=== PATIENT | male | born 1945 | race Caucasian/White ===

== ENCOUNTER 2017-06-20 12:58 | Inpatient (IN) ==
[2017-06-20] MEDS ORDERED: ALBUTEROL/IPRATROPIUM 3 ML NEB RESP TX STA (14:51)
[2017-06-20] MEDS ORDERED: methylPREDNISolone SOD SUC 125 MG/2 ML VIAL IV STA (14:54)
[2017-06-20] MEDS ORDERED: methylPREDNISolone SOD SUC 125 MG/2 ML VIAL ONE (15:37)
[2017-06-20 15:58] LABS: Basophils % 0.3 % (0.0-0.8); Hematocrit 42.5 VOL% (42.0-52.0); Hemoglobin 14.4 GM/DL (14.0-18.0); Immature Granulocytes % 1.5 %; Immature Granulocytes Absolute 0.15 #; Lymphocytes # 0.8 10*3/uL (1.4-4.0); Lymphocytes % 7.3 % (21.2-54.2); Mean Corpuscular HGB Conc 33.9 GM/DL (32-36); Mean Corpuscular Hemoglobin 31 PG (27-34); Mean Corpuscular Volume 92.6 FL (87-102); Mean Platelet Volume 10.6 FL (9.6-12.0); Monocytes # 0.8 10*3/uL (0.11-0.8); Monocytes % 7.5 % (1.7-12.7); Neutrophils # 8.6 10*3/uL (1.4-7.4); Neutrophils % 83.4 % (38.7-73.9); Platelet Count 248 T/CUMM (130-400); Red Blood Count 4.59 MC/CUMM (3.8-5.5); Red Cell Distribution Width 13.2 % (9.3-17.3); White Blood Count 10.3 T/CUMM (4-12)
[2017-06-20 16:33] LABS: Calcium 9.1 MG/DL (8.5-10.1); Osmolality,Calculated 269.4 MOS/KG (273-304)
[2017-06-20] MEDS ORDERED: cefTRIAXone 1,000 MG in SODIUM CHLORIDE 0.9% 100 ML IV STA (16:53)
[2017-06-20] MEDS ORDERED: ONDANSETRON 4 MG/2 ML VIAL IV PRN (17:41)
[2017-06-20] MEDS ORDERED: DOCUSATE SODIUM 100 MG CAPSULE PO PRN (17:41)
[2017-06-20] MEDS ORDERED: ACETAMINOPHEN 325 MG TABLET PO PRN (17:41)
[2017-06-20] MEDS ORDERED: GLUCAGON 1 MG VIAL IM PRN (17:44)
[2017-06-20] MEDS ORDERED: DEXTROSE 50% 25 GM/50 ML VIAL IV PRN (17:44)
[2017-06-20] MEDS ORDERED: cefTRIAXone 1,000 MG VIAL ONE (18:04)
[2017-06-20] MEDS: ALBUTEROL/IPRATROPIUM 3 ML NEB RESP TX SCH ×2 (19:50→23:17)
[2017-06-20] MEDS ORDERED: NITROGLYCERIN SL 0.4 MG TABLET SL PRN (20:35)
[2017-06-20] MEDS: DABIGATRAN 150 MG CAPSULE PO SCH (21:03)
[2017-06-20] MEDS: OMEGA 3 ACID ETHYL ESTERS 1 GM CAPSULE PO SCH (21:03)
[2017-06-20] MEDS: METOPROLOL TARTRATE 50 MG TABLET PO SCH (21:03)
[2017-06-20] MEDS: URSODIOL 300 MG CAPSULE PO SCH (21:04)
[2017-06-20] MEDS: ROSUVASTATIN 10 MG TABLET PO SCH (21:04)
[2017-06-20] MEDS: DOCUSATE SODIUM 100 MG CAPSULE PO SCH (21:04)
[2017-06-20] MEDS: RANOLAZINE 500 MG TABLET PO SCH (21:04)
[2017-06-20] MEDS: VALSARTAN 160 MG TABLET PO SCH (21:04)
[2017-06-20] MEDS: BENZONATATE 100 MG CAPSULE PO PRN (21:05)
[2017-06-20] MEDS: GABAPENTIN 100 MG CAPSULE PO SCH (21:05)
[2017-06-20] MEDS: FERROUS SULFATE 325 MG TABLET PO SCH (21:10)
[2017-06-20] MEDS: INSULIN REGULAR 100 UNIT/ML SUBCUT SCH (21:10)
[2017-06-20 21:36] LABS: CKMB % 4.2 %; Troponin I Only < 0.015 NG/ML (0.00-0.045)
[2017-06-21] MEDS ORDERED: NON-FORMULARY MEDICATION (Albuterol Inhaler 2 PUFF) INH SCH
[2017-06-21] MEDS: ALBUTEROL/IPRATROPIUM 3 ML NEB RESP TX SCH ×5 (03:08→20:02)
[2017-06-21 07:05] LABS: Basophils % 0.2 % (0.0-0.8); Hematocrit 38.7 VOL% (42.0-52.0); Hemoglobin 13.6 GM/DL (14.0-18.0); Immature Granulocytes % 2.6 %; Immature Granulocytes Absolute 0.13 #; Lymphocytes # 0.4 10*3/uL (1.4-4.0); Lymphocytes % 8.8 % (21.2-54.2); Mean Corpuscular HGB Conc 35.1 GM/DL (32-36); Mean Corpuscular Hemoglobin 31 PG (27-34); Mean Corpuscular Volume 89.4 FL (87-102); Mean Platelet Volume 10.7 FL (9.6-12.0); Monocytes # 0.1 10*3/uL (0.11-0.8); Monocytes % 2.6 % (1.7-12.7); Neutrophils # 4.2 10*3/uL (1.4-7.4); Neutrophils % 85.8 % (38.7-73.9); Platelet Count 231 T/CUMM (130-400); Red Blood Count 4.33 MC/CUMM (3.8-5.5); Red Cell Distribution Width 13.1 % (9.3-17.3); White Blood Count 4.9 T/CUMM (4-12)
[2017-06-21 07:37] LABS: Calcium 8.5 MG/DL (8.5-10.1); Potassium 4.2 MMOL/L (3.5-5.1)
[2017-06-21 07:58] LABS: CKMB % 4.1 %; Troponin I Only < 0.015 NG/ML (0.00-0.045)
[2017-06-21] MEDS: INSULIN REGULAR 100 UNIT/ML SUBCUT SCH ×4 (09:15→21:12)
[2017-06-21] MEDS: CETIRIZINE 10 MG TABLET PO SCH (09:16)
[2017-06-21] MEDS: RANOLAZINE 500 MG TABLET PO SCH ×2 (09:16→22:17)
[2017-06-21] MEDS: MULTIVITAMIN (CENTRUM) TABLET PO SCH (09:16)
[2017-06-21] MEDS: PANTOPRAZOLE 40 MG TABLET PO SCH (09:16)
[2017-06-21] MEDS: methylPREDNISolone SOD SUC 40 MG/1 ML VIAL IV SCH ×2 (09:16→22:17)
[2017-06-21] MEDS: URSODIOL 300 MG CAPSULE PO SCH ×2 (09:16→21:13)
[2017-06-21] MEDS: DABIGATRAN 150 MG CAPSULE PO SCH ×2 (09:16→21:13)
[2017-06-21] MEDS: VALSARTAN 160 MG TABLET PO SCH ×2 (09:16→21:13)
[2017-06-21] MEDS: ASPIRIN EC 81 MG TABLET PO SCH (09:17)
[2017-06-21] MEDS: OMEGA 3 ACID ETHYL ESTERS 1 GM CAPSULE PO SCH ×2 (09:17→21:13)
[2017-06-21] MEDS: DOCUSATE SODIUM 100 MG CAPSULE PO SCH ×2 (09:17→21:14)
[2017-06-21] MEDS: FUROSEMIDE 80 MG TABLET PO SCH (09:17)
[2017-06-21] MEDS: amLODIPine 5 MG TABLET PO SCH (09:17)
[2017-06-21] MEDS: ISOSORBIDE MONONITRATE 60 MG TABLET PO SCH (09:17)
[2017-06-21] MEDS: METOPROLOL TARTRATE 50 MG TABLET PO SCH ×2 (09:17→21:13)
[2017-06-21] MEDS: FERROUS SULFATE 325 MG TABLET PO SCH ×2 (10:02→21:13)
[2017-06-21] MEDS: MAGNESIUM HYDROXIDE SUSP 30 ML UDCUP PO PRN (14:47)
[2017-06-21 15:34] LABS: Apearance,Urine CLEAR (Clear); Bilirubin,Urine Negative (Negative); Blood, Urine Negative (Negative); Glucose,Urine (UA) >=500 mg/dL (Negative); Ketones,Urine 5 mg/dL (Negative); Nitrite,Urine Negative (Negative); Protein,Urine >=500 MG/DL; RBC,Urine 3 /HPF (0-4); Urine Color Yellow (Yellow); Urine Specific Gravity 1.013 (1.001-1.035); Urine Urobilinogen < 2.0 EU/DL (0.2-1.0); WBC,Urine 1 /HPF (0-6)
[2017-06-21] MEDS: INSULIN GLARGINE 100 UNIT/ML SUBCUT SCH (21:12)
[2017-06-21] MEDS: LEVOFLOXACIN INJ 750 MG in PREMIX 1 EACH IV SCH (21:12)
[2017-06-21] MEDS: ROSUVASTATIN 10 MG TABLET PO SCH (21:14)
[2017-06-21] MEDS: GABAPENTIN 100 MG CAPSULE PO SCH (21:14)
[2017-06-22] MEDS: ALBUTEROL/IPRATROPIUM 3 ML NEB RESP TX SCH ×7 (00:15→23:06)
[2017-06-22] MEDS: INSULIN REGULAR 100 UNIT/ML SUBCUT SCH ×4 (08:57→21:07)
[2017-06-22] MEDS: MAGNESIUM HYDROXIDE SUSP 30 ML UDCUP PO PRN (08:57)
[2017-06-22] MEDS: methylPREDNISolone SOD SUC 40 MG/1 ML VIAL IV SCH ×2 (08:57→21:08)
[2017-06-22] MEDS: OMEGA 3 ACID ETHYL ESTERS 1 GM CAPSULE PO SCH ×2 (08:58→21:09)
[2017-06-22] MEDS: METOPROLOL TARTRATE 50 MG TABLET PO SCH ×2 (08:58→21:09)
[2017-06-22] MEDS: RANOLAZINE 500 MG TABLET PO SCH ×2 (08:58→21:09)
[2017-06-22] MEDS: ISOSORBIDE MONONITRATE 60 MG TABLET PO SCH (08:58)
[2017-06-22] MEDS: MULTIVITAMIN (CENTRUM) TABLET PO SCH (08:59)
[2017-06-22] MEDS: VALSARTAN 160 MG TABLET PO SCH ×2 (08:59→21:18)
[2017-06-22] MEDS: amLODIPine 5 MG TABLET PO SCH (08:59)
[2017-06-22] MEDS: ASPIRIN EC 81 MG TABLET PO SCH (08:59)
[2017-06-22] MEDS: CETIRIZINE 10 MG TABLET PO SCH (08:59)
[2017-06-22] MEDS: FUROSEMIDE 80 MG TABLET PO SCH (08:59)
[2017-06-22] MEDS: PANTOPRAZOLE 40 MG TABLET PO SCH (08:59)
[2017-06-22] MEDS: DOCUSATE SODIUM 100 MG CAPSULE PO SCH ×2 (08:59→21:09)
[2017-06-22] MEDS: FERROUS SULFATE 325 MG TABLET PO SCH ×2 (08:59→21:09)
[2017-06-22] MEDS: DABIGATRAN 150 MG CAPSULE PO SCH ×2 (08:59→21:08)
[2017-06-22] MEDS: URSODIOL 300 MG CAPSULE PO SCH ×2 (09:00→21:09)
[2017-06-22] MEDS: LEVOFLOXACIN INJ 750 MG in PREMIX 1 EACH IV SCH (21:06)
[2017-06-22] MEDS: INSULIN GLARGINE 100 UNIT/ML SUBCUT SCH (21:07)
[2017-06-22] MEDS: ROSUVASTATIN 10 MG TABLET PO SCH (21:09)
[2017-06-22] MEDS: GABAPENTIN 100 MG CAPSULE PO SCH (21:10)
[2017-06-23] MEDS: ALBUTEROL/IPRATROPIUM 3 ML NEB RESP TX SCH ×5 (03:12→20:49)
[2017-06-23 06:55] LABS: Basophils % 0.3 % (0.0-0.8); Hematocrit 35.9 VOL% (42.0-52.0); Hemoglobin 12.7 GM/DL (14.0-18.0); Immature Granulocytes % 3.2 %; Immature Granulocytes Absolute 0.46 #; Lymphocytes # 0.4 10*3/uL (1.4-4.0); Lymphocytes % 2.6 % (21.2-54.2); Mean Corpuscular HGB Conc 35.4 GM/DL (32-36); Mean Corpuscular Hemoglobin 32 PG (27-34); Mean Corpuscular Volume 89.5 FL (87-102); Mean Platelet Volume 10.5 FL (9.6-12.0); Monocytes # 0.7 10*3/uL (0.11-0.8); Monocytes % 4.7 % (1.7-12.7); Neutrophils % 89.2 % (38.7-73.9); Platelet Count 276 T/CUMM (130-400); Red Blood Count 4.01 MC/CUMM (3.8-5.5); White Blood Count 14.6 T/CUMM (4-12)
[2017-06-23 07:16] LABS: Giant Platelets Few; Hypochromasia 1+; Lymphocytes 4 % (20-55); Microcytosis Slight; Ovalocytes Slight; Platelet Estimate Adequate; Segmented Neutrophils 92 % (50-85); Total Cells Counted 100
[2017-06-23] MEDS: MAGNESIUM HYDROXIDE SUSP 30 ML UDCUP PO PRN (08:49)
[2017-06-23] MEDS: ASPIRIN EC 81 MG TABLET PO SCH (08:50)
[2017-06-23] MEDS: FUROSEMIDE 80 MG TABLET PO SCH (08:50)
[2017-06-23] MEDS: RANOLAZINE 500 MG TABLET PO SCH ×2 (08:50→21:17)
[2017-06-23] MEDS: INSULIN REGULAR 100 UNIT/ML SUBCUT SCH ×4 (08:50→21:23)
[2017-06-23] MEDS: MULTIVITAMIN (CENTRUM) TABLET PO SCH (08:50)
[2017-06-23] MEDS: methylPREDNISolone SOD SUC 40 MG/1 ML VIAL IV SCH (08:50)
[2017-06-23] MEDS: CETIRIZINE 10 MG TABLET PO SCH (08:50)
[2017-06-23] MEDS: FERROUS SULFATE 325 MG TABLET PO SCH ×2 (08:51→21:18)
[2017-06-23] MEDS: VALSARTAN 160 MG TABLET PO SCH ×2 (08:51→21:17)
[2017-06-23] MEDS: amLODIPine 5 MG TABLET PO SCH (08:51)
[2017-06-23] MEDS: URSODIOL 300 MG CAPSULE PO SCH ×2 (08:51→21:17)
[2017-06-23] MEDS: DOCUSATE SODIUM 100 MG CAPSULE PO SCH ×2 (08:51→21:17)
[2017-06-23] MEDS: METOPROLOL TARTRATE 50 MG TABLET PO SCH ×2 (08:51→21:18)
[2017-06-23] MEDS: ISOSORBIDE MONONITRATE 60 MG TABLET PO SCH (08:51)
[2017-06-23] MEDS: DABIGATRAN 150 MG CAPSULE PO SCH ×2 (08:52→21:18)
[2017-06-23] MEDS: OMEGA 3 ACID ETHYL ESTERS 1 GM CAPSULE PO SCH ×2 (08:52→21:30)
[2017-06-23] MEDS: PANTOPRAZOLE 40 MG TABLET PO SCH (08:52)
[2017-06-23] MEDS ORDERED: FUROSEMIDE 40 MG/4 ML VIAL IV ONE (12:11)
[2017-06-23] MEDS ORDERED: INSULIN GLARGINE 100 UNIT/ML SUBCUT SCH (14:33)
[2017-06-23] MEDS: CEFEPIME 1,000 MG in SYRINGE 1 EACH IV SCH (14:38)
[2017-06-23] MEDS: INSULIN GLARGINE 100 UNIT/ML SUBCUT SCH ×2 (14:48→21:22)
[2017-06-23] MEDS ORDERED: BISACODYL 5 MG TABLET PO ONE (15:16)
[2017-06-23] MEDS: LEVOFLOXACIN INJ 750 MG in PREMIX 1 EACH IV SCH (21:16)
[2017-06-23] MEDS: GABAPENTIN 100 MG CAPSULE PO SCH (21:17)
[2017-06-23] MEDS: ROSUVASTATIN 10 MG TABLET PO SCH (21:18)
[2017-06-24] MEDS: ALBUTEROL/IPRATROPIUM 3 ML NEB RESP TX SCH ×6 (00:18→19:16)
[2017-06-24] MEDS: CEFEPIME 1,000 MG in SYRINGE 1 EACH IV SCH ×2 (01:27→13:35)
[2017-06-24] MEDS ORDERED: INSULIN GLARGINE 100 UNIT/ML SUBCUT SCH ×2 (07:28→08:08)
[2017-06-24] MEDS: INSULIN REGULAR 100 UNIT/ML SUBCUT SCH ×4 (08:52→20:48)
[2017-06-24] MEDS: URSODIOL 300 MG CAPSULE PO SCH ×2 (08:53→23:10)
[2017-06-24] MEDS: BISACODYL 5 MG TABLET PO PRN (08:53)
[2017-06-24] MEDS: methylPREDNISolone SOD SUC 40 MG/1 ML VIAL IV SCH (08:53)
[2017-06-24] MEDS: RANOLAZINE 500 MG TABLET PO SCH ×2 (08:53→20:50)
[2017-06-24] MEDS: DABIGATRAN 150 MG CAPSULE PO SCH ×2 (08:53→20:50)
[2017-06-24] MEDS: PANTOPRAZOLE 40 MG TABLET PO SCH (08:53)
[2017-06-24] MEDS: FUROSEMIDE 80 MG TABLET PO SCH (08:53)
[2017-06-24] MEDS: FERROUS SULFATE 325 MG TABLET PO SCH ×2 (08:54→20:50)
[2017-06-24] MEDS: amLODIPine 5 MG TABLET PO SCH (08:54)
[2017-06-24] MEDS: VALSARTAN 160 MG TABLET PO SCH ×2 (08:59→23:10)
[2017-06-24] MEDS: METOPROLOL TARTRATE 50 MG TABLET PO SCH ×2 (09:00→20:51)
[2017-06-24] MEDS: OMEGA 3 ACID ETHYL ESTERS 1 GM CAPSULE PO SCH ×2 (09:00→20:51)
[2017-06-24] MEDS: DOCUSATE SODIUM 100 MG CAPSULE PO SCH ×2 (09:00→20:50)
[2017-06-24] MEDS: CETIRIZINE 10 MG TABLET PO SCH (09:00)
[2017-06-24] MEDS: ASPIRIN EC 81 MG TABLET PO SCH (09:00)
[2017-06-24] MEDS: ISOSORBIDE MONONITRATE 60 MG TABLET PO SCH (09:00)
[2017-06-24] MEDS: MULTIVITAMIN (CENTRUM) TABLET PO SCH (09:00)
[2017-06-24] MEDS: MAGNESIUM HYDROXIDE SUSP 30 ML UDCUP PO PRN (09:08)
[2017-06-24] MEDS ORDERED: SODIUM PHOSPHATE ENEMA 133 ML BOTTLE RECTAL PRN (18:42)
[2017-06-24] MEDS: GABAPENTIN 100 MG CAPSULE PO SCH (20:50)
[2017-06-24] MEDS: MONTELUKAST 10 MG TABLET PO SCH (20:50)
[2017-06-24] MEDS: ROSUVASTATIN 10 MG TABLET PO SCH (20:51)
[2017-06-24] MEDS: LEVOFLOXACIN INJ 750 MG in PREMIX 1 EACH IV SCH (20:55)
[2017-06-24] MEDS: LACTULOSE 20 GM/30 ML UDCUP PO SCH (21:01)
[2017-06-25] MEDS: ALBUTEROL/IPRATROPIUM 3 ML NEB RESP TX SCH ×7 (00:07→23:45)
[2017-06-25] MEDS: CEFEPIME 1,000 MG in SYRINGE 1 EACH IV SCH ×2 (01:02→16:23)
[2017-06-25 07:13] LABS: Basophils % 0.2 % (0.0-0.8); Hematocrit 35.7 VOL% (42.0-52.0); Hemoglobin 12.4 GM/DL (14.0-18.0); Immature Granulocytes % 3.7 %; Immature Granulocytes Absolute 0.58 #; Lymphocytes # 0.8 10*3/uL (1.4-4.0); Lymphocytes % 5.3 % (21.2-54.2); Mean Corpuscular HGB Conc 34.7 GM/DL (32-36); Mean Corpuscular Hemoglobin 32 PG (27-34); Mean Corpuscular Volume 90.6 FL (87-102); Mean Platelet Volume 10.6 FL (9.6-12.0); Monocytes # 1.1 10*3/uL (0.11-0.8); Monocytes % 6.8 % (1.7-12.7); Neutrophils # 13.3 10*3/uL (1.4-7.4); Platelet Count 247 T/CUMM (130-400); Red Blood Count 3.94 MC/CUMM (3.8-5.5); Red Cell Distribution Width 12.7 % (9.3-17.3); White Blood Count 15.8 T/CUMM (4-12)
[2017-06-25 07:32] LABS: Calcium 8.8 MG/DL (8.5-10.1); Potassium 4.2 MMOL/L (3.5-5.1)
[2017-06-25] MEDS: INSULIN REGULAR 100 UNIT/ML SUBCUT SCH ×4 (07:55→22:48)
[2017-06-25 08:12] LABS: Hypochromasia 1+; Lymphocytes 5 % (20-55); Microcytosis Slight; Platelet Estimate Normal; Segmented Neutrophils 88 % (50-85); Total Cells Counted 100
[2017-06-25] MEDS: methylPREDNISolone SOD SUC 40 MG/1 ML VIAL IV SCH (08:54)
[2017-06-25] MEDS: FUROSEMIDE 80 MG TABLET PO SCH (09:18)
[2017-06-25] MEDS: VALSARTAN 160 MG TABLET PO SCH ×2 (09:18→21:15)
[2017-06-25] MEDS: ISOSORBIDE MONONITRATE 60 MG TABLET PO SCH (09:18)
[2017-06-25] MEDS: METOPROLOL TARTRATE 50 MG TABLET PO SCH ×2 (09:18→21:14)
[2017-06-25] MEDS: OMEGA 3 ACID ETHYL ESTERS 1 GM CAPSULE PO SCH ×2 (09:18→21:13)
[2017-06-25] MEDS: FERROUS SULFATE 325 MG TABLET PO SCH ×2 (09:18→21:13)
[2017-06-25] MEDS: MONTELUKAST 10 MG TABLET PO SCH (09:18)
[2017-06-25] MEDS: ASPIRIN EC 81 MG TABLET PO SCH (09:18)
[2017-06-25] MEDS: LACTULOSE 20 GM/30 ML UDCUP PO SCH ×3 (09:18→21:13)
[2017-06-25] MEDS: DABIGATRAN 150 MG CAPSULE PO SCH ×2 (09:18→21:14)
[2017-06-25] MEDS: PANTOPRAZOLE 40 MG TABLET PO SCH (09:19)
[2017-06-25] MEDS: DOCUSATE SODIUM 100 MG CAPSULE PO SCH ×2 (09:19→21:14)
[2017-06-25] MEDS: POLYETHYLENE GLYCOL POWDER 17 GM PACK PO SCH (09:19)
[2017-06-25] MEDS: amLODIPine 5 MG TABLET PO SCH (09:19)
[2017-06-25] MEDS: BISACODYL 5 MG TABLET PO PRN (09:19)
[2017-06-25] MEDS: CETIRIZINE 10 MG TABLET PO SCH (09:19)
[2017-06-25] MEDS: MULTIVITAMIN (CENTRUM) TABLET PO SCH (09:19)
[2017-06-25] MEDS: RANOLAZINE 500 MG TABLET PO SCH ×2 (09:24→21:14)
[2017-06-25] MEDS: URSODIOL 300 MG CAPSULE PO SCH ×2 (09:24→21:14)
[2017-06-25] MEDS: LEVOFLOXACIN INJ 750 MG in PREMIX 1 EACH IV SCH (21:13)
[2017-06-25] MEDS: GABAPENTIN 100 MG CAPSULE PO SCH (21:14)
[2017-06-25] MEDS: ROSUVASTATIN 10 MG TABLET PO SCH (21:17)
[2017-06-25] MEDS: INSULIN GLARGINE 100 UNIT/ML SUBCUT SCH (22:48)
[2017-06-26] MEDS: ALBUTEROL/IPRATROPIUM 3 ML NEB RESP TX SCH ×5 (03:03→20:53)
[2017-06-26 04:31] LABS: Basophils % 0.3 % (0.0-0.8); Hematocrit 35.3 VOL% (42.0-52.0); Hemoglobin 12.4 GM/DL (14.0-18.0); Immature Granulocytes % 3.6 %; Immature Granulocytes Absolute 0.54 #; Lymphocytes # 0.7 10*3/uL (1.4-4.0); Lymphocytes % 4.9 % (21.2-54.2); Mean Corpuscular HGB Conc 35.1 GM/DL (32-36); Mean Corpuscular Hemoglobin 31 PG (27-34); Mean Corpuscular Volume 89.1 FL (87-102); Mean Platelet Volume 10.8 FL (9.6-12.0); Monocytes # 1.1 10*3/uL (0.11-0.8); Monocytes % 7.1 % (1.7-12.7); Neutrophils # 12.7 10*3/uL (1.4-7.4); Neutrophils % 84.1 % (38.7-73.9); Platelet Count 245 T/CUMM (130-400); Red Blood Count 3.96 MC/CUMM (3.8-5.5); Red Cell Distribution Width 12.8 % (9.3-17.3); White Blood Count 15.1 T/CUMM (4-12)
[2017-06-26] MEDS: CEFEPIME 1,000 MG in SYRINGE 1 EACH IV SCH ×2 (04:39→16:39)
[2017-06-26 04:50] LABS: Calcium 8.8 MG/DL (8.5-10.1)
[2017-06-26 05:17] LABS: Band Neutrophils 2 % (0-10); Giant Platelets Few; Hypochromasia 1+; Lymphocytes 5 % (20-55); Microcytosis Slight; Ovalocytes Slight; Platelet Estimate Adequate; Segmented Neutrophils 89 % (50-85); Total Cells Counted 100
[2017-06-26] MEDS: INSULIN REGULAR 100 UNIT/ML SUBCUT SCH ×4 (09:32→23:43)
[2017-06-26] MEDS: PANTOPRAZOLE 40 MG TABLET PO SCH (09:33)
[2017-06-26] MEDS: methylPREDNISolone SOD SUC 40 MG/1 ML VIAL IV SCH (09:33)
[2017-06-26] MEDS: ASPIRIN EC 81 MG TABLET PO SCH (09:33)
[2017-06-26] MEDS: OMEGA 3 ACID ETHYL ESTERS 1 GM CAPSULE PO SCH ×2 (09:33→22:07)
[2017-06-26] MEDS: URSODIOL 300 MG CAPSULE PO SCH ×2 (09:33→22:07)
[2017-06-26] MEDS: MULTIVITAMIN (CENTRUM) TABLET PO SCH (09:33)
[2017-06-26] MEDS: DABIGATRAN 150 MG CAPSULE PO SCH ×2 (09:33→22:08)
[2017-06-26] MEDS: RANOLAZINE 500 MG TABLET PO SCH ×2 (09:33→22:06)
[2017-06-26] MEDS: MONTELUKAST 10 MG TABLET PO SCH (09:34)
[2017-06-26] MEDS: LACTULOSE 20 GM/30 ML UDCUP PO SCH ×3 (09:34→22:09)
[2017-06-26] MEDS: VALSARTAN 160 MG TABLET PO SCH ×2 (09:34→22:07)
[2017-06-26] MEDS: CETIRIZINE 10 MG TABLET PO SCH (09:34)
[2017-06-26] MEDS: ISOSORBIDE MONONITRATE 60 MG TABLET PO SCH (09:34)
[2017-06-26] MEDS: POLYETHYLENE GLYCOL POWDER 17 GM PACK PO SCH (09:34)
[2017-06-26] MEDS: DOCUSATE SODIUM 100 MG CAPSULE PO SCH ×2 (09:34→22:08)
[2017-06-26] MEDS: FERROUS SULFATE 325 MG TABLET PO SCH ×2 (09:34→22:08)
[2017-06-26] MEDS: FUROSEMIDE 80 MG TABLET PO SCH (09:34)
[2017-06-26] MEDS: METOPROLOL TARTRATE 50 MG TABLET PO SCH ×2 (09:34→22:07)
[2017-06-26] MEDS: amLODIPine 5 MG TABLET PO SCH (09:34)
[2017-06-26] MEDS: GABAPENTIN 100 MG CAPSULE PO SCH (22:08)
[2017-06-26] MEDS: INSULIN GLARGINE 100 UNIT/ML SUBCUT SCH (22:08)
[2017-06-26] MEDS: valACYclovir 500 MG TABLET PO SCH (22:09)
[2017-06-26] MEDS: LEVOFLOXACIN INJ 750 MG in PREMIX 1 EACH IV SCH (22:14)
[2017-06-26] MEDS: ROSUVASTATIN 10 MG TABLET PO SCH (23:44)
[2017-06-27] MEDS: ALBUTEROL/IPRATROPIUM 3 ML NEB RESP TX SCH ×6 (00:33→20:24)
[2017-06-27] MEDS: CEFEPIME 1,000 MG in SYRINGE 1 EACH IV SCH ×2 (04:55→16:25)
[2017-06-27 06:32] LABS: Basophils % 0.2 % (0.0-0.8); Hematocrit 36.3 VOL% (42.0-52.0); Hemoglobin 12.3 GM/DL (14.0-18.0); Immature Granulocytes % 2.8 %; Immature Granulocytes Absolute 0.54 #; Lymphocytes # 0.6 10*3/uL (1.4-4.0); Lymphocytes % 2.9 % (21.2-54.2); Mean Corpuscular HGB Conc 33.9 GM/DL (32-36); Mean Corpuscular Hemoglobin 31 PG (27-34); Mean Corpuscular Volume 91.4 FL (87-102); Mean Platelet Volume 10.6 FL (9.6-12.0); Monocytes # 1.3 10*3/uL (0.11-0.8); Monocytes % 6.6 % (1.7-12.7); Neutrophils % 87.5 % (38.7-73.9); Platelet Count 249 T/CUMM (130-400); Red Blood Count 3.97 MC/CUMM (3.8-5.5); White Blood Count 19.4 T/CUMM (4-12)
[2017-06-27 06:52] LABS: Calcium 8.9 MG/DL (8.5-10.1); Osmolality,Calculated 289.2 MOS/KG (273-304); Potassium 3.9 MMOL/L (3.5-5.1)
[2017-06-27 07:55] LABS: Giant Platelets Few; Hypochromasia 1+; Lymphocytes 3 % (20-55); Microcytosis Slight; Ovalocytes Slight; Platelet Estimate Adequate; Segmented Neutrophils 90 % (50-85); Total Cells Counted 100
[2017-06-27] MEDS: OMEGA 3 ACID ETHYL ESTERS 1 GM CAPSULE PO SCH ×2 (08:45→22:13)
[2017-06-27] MEDS: methylPREDNISolone SOD SUC 40 MG/1 ML VIAL IV SCH (08:45)
[2017-06-27] MEDS: amLODIPine 5 MG TABLET PO SCH (08:45)
[2017-06-27] MEDS: PANTOPRAZOLE 40 MG TABLET PO SCH (08:45)
[2017-06-27] MEDS: URSODIOL 300 MG CAPSULE PO SCH ×2 (08:45→22:08)
[2017-06-27] MEDS: METOPROLOL TARTRATE 50 MG TABLET PO SCH ×2 (08:45→22:09)
[2017-06-27] MEDS: FERROUS SULFATE 325 MG TABLET PO SCH ×2 (08:45→22:09)
[2017-06-27] MEDS: DABIGATRAN 150 MG CAPSULE PO SCH ×2 (08:45→22:09)
[2017-06-27] MEDS: DOCUSATE SODIUM 100 MG CAPSULE PO SCH ×2 (08:45→22:09)
[2017-06-27] MEDS: ISOSORBIDE MONONITRATE 60 MG TABLET PO SCH (08:45)
[2017-06-27] MEDS: MULTIVITAMIN (CENTRUM) TABLET PO SCH (08:45)
[2017-06-27] MEDS: INSULIN REGULAR 100 UNIT/ML SUBCUT SCH ×4 (08:45→22:10)
[2017-06-27] MEDS: MONTELUKAST 10 MG TABLET PO SCH (08:46)
[2017-06-27] MEDS: LACTULOSE 20 GM/30 ML UDCUP PO SCH ×3 (08:46→22:08)
[2017-06-27] MEDS: FUROSEMIDE 80 MG TABLET PO SCH (08:46)
[2017-06-27] MEDS: BISACODYL 5 MG TABLET PO PRN (08:46)
[2017-06-27] MEDS: CETIRIZINE 10 MG TABLET PO SCH (08:46)
[2017-06-27] MEDS: ASPIRIN EC 81 MG TABLET PO SCH (08:46)
[2017-06-27] MEDS: RANOLAZINE 500 MG TABLET PO SCH ×2 (08:46→22:08)
[2017-06-27] MEDS: VALSARTAN 160 MG TABLET PO SCH ×2 (08:46→22:08)
[2017-06-27] MEDS: valACYclovir 500 MG TABLET PO SCH ×2 (08:47→22:11)
[2017-06-27] MEDS: POLYETHYLENE GLYCOL POWDER 17 GM PACK PO SCH (08:47)
[2017-06-27] MEDS: GABAPENTIN 100 MG CAPSULE PO SCH (22:09)
[2017-06-27] MEDS: INSULIN GLARGINE 100 UNIT/ML SUBCUT SCH (22:10)
[2017-06-27] MEDS: ROSUVASTATIN 10 MG TABLET PO SCH (22:13)
[2017-06-27] MEDS: LEVOFLOXACIN INJ 750 MG in PREMIX 1 EACH IV SCH (22:21)
[2017-06-28] MEDS: ALBUTEROL/IPRATROPIUM 3 ML NEB RESP TX SCH ×5 (00:07→15:02)
[2017-06-28] MEDS: CEFEPIME 1,000 MG in SYRINGE 1 EACH IV SCH (04:30)
[2017-06-28] MEDS: INSULIN REGULAR 100 UNIT/ML SUBCUT SCH ×2 (09:26→13:02)
[2017-06-28] MEDS: DOCUSATE SODIUM 100 MG CAPSULE PO SCH (09:27)
[2017-06-28] MEDS: MULTIVITAMIN (CENTRUM) TABLET PO SCH (09:27)
[2017-06-28] MEDS: LACTULOSE 20 GM/30 ML UDCUP PO SCH ×2 (09:27→16:09)
[2017-06-28] MEDS: ASPIRIN EC 81 MG TABLET PO SCH (09:27)
[2017-06-28] MEDS: URSODIOL 300 MG CAPSULE PO SCH (09:27)
[2017-06-28] MEDS: FERROUS SULFATE 325 MG TABLET PO SCH (09:28)
[2017-06-28] MEDS: METOPROLOL TARTRATE 50 MG TABLET PO SCH (09:28)
[2017-06-28] MEDS: OMEGA 3 ACID ETHYL ESTERS 1 GM CAPSULE PO SCH (09:28)
[2017-06-28] MEDS: VALSARTAN 160 MG TABLET PO SCH (09:28)
[2017-06-28] MEDS: ISOSORBIDE MONONITRATE 60 MG TABLET PO SCH (09:28)
[2017-06-28] MEDS: FUROSEMIDE 80 MG TABLET PO SCH (09:28)
[2017-06-28] MEDS: methylPREDNISolone SOD SUC 40 MG/1 ML VIAL IV SCH (09:29)
[2017-06-28] MEDS: PANTOPRAZOLE 40 MG TABLET PO SCH (09:29)
[2017-06-28] MEDS: amLODIPine 5 MG TABLET PO SCH (09:29)
[2017-06-28] MEDS: MONTELUKAST 10 MG TABLET PO SCH (09:29)
[2017-06-28] MEDS: RANOLAZINE 500 MG TABLET PO SCH (09:29)
[2017-06-28] MEDS: POLYETHYLENE GLYCOL POWDER 17 GM PACK PO SCH (09:29)
[2017-06-28] MEDS: DABIGATRAN 150 MG CAPSULE PO SCH (09:29)
[2017-06-28] MEDS: BENZONATATE 100 MG CAPSULE PO PRN (09:30)
[2017-06-28] MEDS: CETIRIZINE 10 MG TABLET PO SCH (09:30)
[2017-06-28] MEDS: valACYclovir 500 MG TABLET PO SCH (09:30)
[2017-06-28 13:48] VITALS: BP 154/70
== END 2017-06-28 15:55 | disposition home or self-care (01) | DRG 193 ==
LOC: N.ED 12:58 → N.EDINP 16:45 → SUATTDRO 16:45 → N.EDINP 18:50 → N.5E 19:43
PROVIDERS: ADMIT Internal Medicine

== ENCOUNTER 2017-07-02 05:53 | Inpatient (IN) ==
[2017-07-02] MEDS ORDERED: MEROPENEM 1,000 MG in SODIUM CHLORIDE 0.9% 100 ML IV STA (06:15)
[2017-07-02] MEDS ORDERED: VANCOMYCIN INJ 1,000 MG in SODIUM CHLORIDE 0.9% 250 ML IV STA (06:16)
[2017-07-02] MEDS ORDERED: MEROPENEM 1,000 MG VIAL IV ONE (06:21)
[2017-07-02 06:36] LABS: Basophils % 0.1 % (0.0-0.8); Hemoglobin 12.4 GM/DL (14.0-18.0); Immature Granulocytes % 0.6 %; Lymphocytes # 0.2 10*3/uL (1.4-4.0); Lymphocytes % 1.2 % (21.2-54.2); Mean Corpuscular HGB Conc 35.4 GM/DL (32-36); Mean Corpuscular Hemoglobin 32 PG (27-34); Mean Corpuscular Volume 90.7 FL (87-102); Mean Platelet Volume 10.8 FL (9.6-12.0); Monocytes # 0.2 10*3/uL (0.11-0.8); Monocytes % 1.3 % (1.7-12.7); Neutrophils # 15.2 10*3/uL (1.4-7.4); Neutrophils % 96.8 % (38.7-73.9); Platelet Count 174 T/CUMM (130-400); Red Blood Count 3.86 MC/CUMM (3.8-5.5); Red Cell Distribution Width 14.2 % (9.3-17.3); White Blood Count 15.7 T/CUMM (4-12)
[2017-07-02] MEDS: ALBUTEROL 2.5 MG/3 ML NEB RESP TX SCH ×3 (06:44→07:37)
[2017-07-02 06:56] LABS: Band Neutrophils 2 % (0-10); Giant Platelets Few; Hypochromasia 1+; Lymphocytes 2 % (20-55); Microcytosis Slight; Ovalocytes Slight; Platelet Estimate Normal; Segmented Neutrophils 95 % (50-85); Total Cells Counted 100
[2017-07-02 07:10] LABS: Alanine Aminotransferase 52 U/L (16-61); Albumin 2.3 G/DL (3.4-5.0); Alkaline Phosphatase 86 U/L (45-117); Aspartate Amino Transferase 59 U/L (0-37); Blood Urea Nitrogen 54 MG/DL (7-18); Calcium 9.3 MG/DL (8.5-10.1); Glucose 58 MG/DL (74-106); Osmolality,Calculated 276.5 MOS/KG (273-304); Potassium 4.6 MMOL/L (3.5-5.1); Sodium 132 MMOL/L (136-145); Total Protein 6.7 G/DL (6.4-8.3); Troponin I Only < 0.015 NG/ML (0.00-0.045)
[2017-07-02] MEDS ORDERED: VANCOMYCIN 1,000 MG VIAL ONE (07:44)
[2017-07-02] MEDS ORDERED: ACETAMINOPHEN 325 MG TABLET PO PRN (08:43)
[2017-07-02] MEDS ORDERED: FUROSEMIDE 40 MG/4 ML VIAL IV STA (08:57)
[2017-07-02] MEDS ORDERED: LEVOFLOXACIN INJ 750 MG in PREMIX 1 EACH IV SCH ×2 (09:00→10:00)
[2017-07-02] MEDS ORDERED: DEXTROSE 50% 25 GM/50 ML VIAL IV PRN (09:01)
[2017-07-02] MEDS ORDERED: GLUCAGON 1 MG VIAL IM PRN (09:01)
[2017-07-02] MEDS: methylPREDNISolone SOD SUC 40 MG/1 ML VIAL IV SCH ×2 (09:57→21:44)
[2017-07-02] MEDS: ALBUTEROL/IPRATROPIUM 3 ML NEB RESP TX SCH ×4 (11:05→23:44)
[2017-07-02] MEDS: INSULIN REGULAR 100 UNIT/ML SUBCUT SCH ×2 (13:18→18:07)
[2017-07-02] MEDS ORDERED: BENZONATATE 100 MG CAPSULE PO PRN (13:43)
[2017-07-02 14:21] LABS: Apearance,Urine CLOUDY (Clear); Bacteria,Urine Occasional /HPF (Few); Bilirubin,Urine Negative (Negative); Blood, Urine Negative (Negative); Glucose,Urine (UA) 50 mg/dL (Negative); Hyaline Casts,Urine 1 /LPF (0-3); Ketones,Urine Negative (Negative); Mucus,Urine Occasional /LPF (Occasional); Nitrite,Urine Negative (Negative); Protein,Urine 100 MG/DL; RBC,Urine 2 /HPF (0-4); Squamous Epithelial Cell,Urine Occasional /HPF (0-10); Urine Color Amber (Yellow); Urine Specific Gravity 1.014 (1.001-1.035); Urine Urobilinogen < 2.0 EU/DL (0.2-1.0); WBC,Urine 2 /HPF (0-6)
[2017-07-03] MEDS: INSULIN REGULAR 100 UNIT/ML SUBCUT SCH ×4 (00:32→18:16)
[2017-07-03 02:47] LABS: Basophils % 0.1 % (0.0-0.8); Hematocrit 30.6 VOL% (42.0-52.0); Hemoglobin 10.2 GM/DL (14.0-18.0); Immature Granulocytes % 1.4 %; Immature Granulocytes Absolute 0.11 #; Lymphocytes # 0.1 10*3/uL (1.4-4.0); Lymphocytes % 1.8 % (21.2-54.2); Mean Corpuscular HGB Conc 33.3 GM/DL (32-36); Mean Corpuscular Hemoglobin 31 PG (27-34); Mean Corpuscular Volume 92.2 FL (87-102); Mean Platelet Volume 10.5 FL (9.6-12.0); Monocytes # 0.1 10*3/uL (0.11-0.8); Monocytes % 1.3 % (1.7-12.7); Neutrophils # 7.4 10*3/uL (1.4-7.4); Neutrophils % 95.4 % (38.7-73.9); Platelet Count 120 T/CUMM (130-400); Red Blood Count 3.32 MC/CUMM (3.8-5.5); Red Cell Distribution Width 14.1 % (9.3-17.3); White Blood Count 7.7 T/CUMM (4-12)
[2017-07-03] MEDS: ALBUTEROL/IPRATROPIUM 3 ML NEB RESP TX SCH ×6 (03:27→23:48)
[2017-07-03 03:29] LABS: Osmolality,Calculated 284.1 MOS/KG (273-304); Potassium 4.2 MMOL/L (3.5-5.1)
[2017-07-03 05:10] LABS: Lymphocytes 4 % (20-55); Segmented Neutrophils 95 % (50-85); Total Cells Counted 100
[2017-07-03 05:11] LABS: Hypochromasia 1+; Platelet Estimate Normal
[2017-07-03] MEDS: methylPREDNISolone SOD SUC 40 MG/1 ML VIAL IV SCH ×2 (10:35→22:25)
[2017-07-03] MEDS: LEVOFLOXACIN INJ 750 MG in PREMIX 1 EACH IV SCH (10:48)
[2017-07-04] MEDS: INSULIN REGULAR 100 UNIT/ML SUBCUT SCH ×4 (01:04→17:48)
[2017-07-04] MEDS: ALBUTEROL/IPRATROPIUM 3 ML NEB RESP TX SCH ×5 (03:42→20:41)
[2017-07-04] MEDS: methylPREDNISolone SOD SUC 40 MG/1 ML VIAL IV SCH ×2 (09:27→21:50)
[2017-07-04] MEDS: LEVOFLOXACIN INJ 750 MG in PREMIX 1 EACH IV SCH (10:05)
[2017-07-04] MEDS ORDERED: NITROGLYCERIN SL 0.4 MG TABLET SL PRN (14:07)
[2017-07-04] MEDS: NYSTATIN 500,000 UNIT/5 ML UDCUP SWISH/SWAL SCH ×2 (17:52→21:56)
[2017-07-04] MEDS ORDERED: POTASSIUM CHLORIDE 20 MEQ TABLET PO SCH (19:00)
[2017-07-04] MEDS: GABAPENTIN 100 MG CAPSULE PO SCH (21:55)
[2017-07-04] MEDS: METOPROLOL TARTRATE 50 MG TABLET PO SCH (21:56)
[2017-07-04] MEDS: GLIMEPIRIDE 2 MG TABLET PO SCH (21:57)
[2017-07-04] MEDS: URSODIOL 300 MG CAPSULE PO SCH (22:26)
[2017-07-04] MEDS: POTASSIUM CHLORIDE 20 MEQ/15 ML UDCUP PO SCH (22:27)
[2017-07-04] MEDS: valACYclovir 500 MG TABLET PO SCH (22:28)
[2017-07-04] MEDS: RANOLAZINE 500 MG TABLET PO SCH (22:29)
[2017-07-04] MEDS: OMEGA 3 ACID ETHYL ESTERS 1 GM CAPSULE PO SCH (22:29)
[2017-07-04] MEDS: ROSUVASTATIN 10 MG TABLET PO SCH (22:30)
[2017-07-04] MEDS: FERROUS SULFATE 325 MG TABLET PO SCH (22:30)
[2017-07-05] MEDS: ALBUTEROL/IPRATROPIUM 3 ML NEB RESP TX SCH ×6 (00:11→18:50)
[2017-07-05] MEDS: INSULIN REGULAR 100 UNIT/ML SUBCUT SCH ×4 (00:12→17:51)
[2017-07-05] MEDS ORDERED: ONDANSETRON 4 MG/2 ML VIAL IV PRN (03:08)
[2017-07-05 06:07] LABS: Basophils % 0.1 % (0.0-0.8); Hematocrit 33.1 VOL% (42.0-52.0); Hemoglobin 11.1 GM/DL (14.0-18.0); Immature Granulocytes % 0.4 %; Immature Granulocytes Absolute 0.03 #; Lymphocytes # 0.3 10*3/uL (1.4-4.0); Lymphocytes % 3.5 % (21.2-54.2); Mean Corpuscular HGB Conc 33.5 GM/DL (32-36); Mean Corpuscular Hemoglobin 31 PG (27-34); Mean Corpuscular Volume 93.2 FL (87-102); Mean Platelet Volume 10.8 FL (9.6-12.0); Monocytes # 0.2 10*3/uL (0.11-0.8); Monocytes % 2.3 % (1.7-12.7); Neutrophils # 7.9 10*3/uL (1.4-7.4); Neutrophils % 93.7 % (38.7-73.9); Platelet Count 134 T/CUMM (130-400); Red Blood Count 3.55 MC/CUMM (3.8-5.5); Red Cell Distribution Width 13.6 % (9.3-17.3); White Blood Count 8.4 T/CUMM (4-12)
[2017-07-05 06:13] LABS: INR 1.1; PT Patient Result 11.1 SECS
[2017-07-05 06:31] LABS: Calcium 8.5 MG/DL (8.5-10.1); Osmolality,Calculated 299.4 MOS/KG (273-304); Potassium 3.7 MMOL/L (3.5-5.1)
[2017-07-05 06:38] LABS: Hypochromasia 2+; Microcytosis 2+; Platelet Estimate Decreased; Segmented Neutrophils 98 % (50-85); Total Cells Counted 100
[2017-07-05] MEDS: methylPREDNISolone SOD SUC 40 MG/1 ML VIAL IV SCH ×2 (09:31→22:31)
[2017-07-05] MEDS: LEVOFLOXACIN INJ 750 MG in PREMIX 1 EACH IV SCH (09:33)
[2017-07-05] MEDS ORDERED: LIDOCAINE 100 MG/5 ML SYRINGE ONE (10:00)
[2017-07-05] MEDS ORDERED: PROPOFOL 200 MG/20 ML VIAL IV ONE (10:00)
[2017-07-05] MEDS: GLIMEPIRIDE 2 MG TABLET PO SCH ×2 (14:04→22:16)
[2017-07-05] MEDS: THEOPHYLLINE ER (24 HR) 400 MG CAPSULE PO SCH (14:04)
[2017-07-05] MEDS: PANTOPRAZOLE 40 MG TABLET PO SCH (14:05)
[2017-07-05] MEDS: MONTELUKAST 10 MG TABLET PO SCH (14:05)
[2017-07-05] MEDS: ISOSORBIDE MONONITRATE 60 MG TABLET PO SCH (14:05)
[2017-07-05] MEDS: amLODIPine 5 MG TABLET PO SCH (14:05)
[2017-07-05] MEDS: CLOTRIMAZOLE 10 MG TROCHE PO SCH ×3 (14:06→22:30)
[2017-07-05] MEDS: NYSTATIN 500,000 UNIT/5 ML UDCUP SWISH/SWAL SCH ×4 (14:06→22:20)
[2017-07-05] MEDS: URSODIOL 300 MG CAPSULE PO SCH ×2 (14:09→22:16)
[2017-07-05] MEDS: MULTIVITAMIN (BEROCCA) TABLET PO SCH (14:17)
[2017-07-05] MEDS: DOCUSATE SODIUM 100 MG CAPSULE PO SCH ×2 (14:18→22:23)
[2017-07-05] MEDS: FERROUS SULFATE 325 MG TABLET PO SCH ×2 (14:18→22:23)
[2017-07-05] MEDS: VALSARTAN 160 MG TABLET PO SCH ×2 (14:18→22:23)
[2017-07-05] MEDS: METOPROLOL TARTRATE 50 MG TABLET PO SCH ×2 (14:19→22:16)
[2017-07-05] MEDS: OMEGA 3 ACID ETHYL ESTERS 1 GM CAPSULE PO SCH ×2 (14:19→22:23)
[2017-07-05] MEDS: INSULIN GLARGINE 100 UNIT/ML SUBCUT SCH (14:19)
[2017-07-05] MEDS: RANOLAZINE 500 MG TABLET PO SCH ×2 (14:20→22:14)
[2017-07-05] MEDS: POLYETHYLENE GLYCOL POWDER 17 GM PACK PO SCH (14:20)
[2017-07-05] MEDS: CETIRIZINE 10 MG TABLET PO SCH (14:21)
[2017-07-05] MEDS: valACYclovir 500 MG TABLET PO SCH ×2 (14:26→22:15)
[2017-07-05] MEDS ORDERED: FUROSEMIDE 80 MG TABLET PO SCH (18:00)
[2017-07-05] MEDS: GABAPENTIN 100 MG CAPSULE PO SCH (22:15)
[2017-07-05] MEDS: ROSUVASTATIN 10 MG TABLET PO SCH (22:17)
[2017-07-05] MEDS: POTASSIUM CHLORIDE 20 MEQ/15 ML UDCUP PO SCH (22:24)
[2017-07-06] MEDS: ALBUTEROL/IPRATROPIUM 3 ML NEB RESP TX SCH ×4 (00:14→11:15)
[2017-07-06] MEDS: INSULIN REGULAR 100 UNIT/ML SUBCUT SCH ×3 (01:21→13:38)
[2017-07-06] MEDS: CLOTRIMAZOLE 10 MG TROCHE PO SCH ×3 (06:18→13:38)
[2017-07-06] MEDS ORDERED: LEVOFLOXACIN 750 MG TABLET PO SCH (09:00)
[2017-07-06] MEDS: INSULIN GLARGINE 100 UNIT/ML SUBCUT SCH (10:23)
[2017-07-06] MEDS: methylPREDNISolone SOD SUC 40 MG/1 ML VIAL IV SCH (10:23)
[2017-07-06] MEDS: ISOSORBIDE MONONITRATE 60 MG TABLET PO SCH (10:27)
[2017-07-06] MEDS: VALSARTAN 160 MG TABLET PO SCH (10:27)
[2017-07-06] MEDS: URSODIOL 300 MG CAPSULE PO SCH (10:27)
[2017-07-06] MEDS: MONTELUKAST 10 MG TABLET PO SCH (10:27)
[2017-07-06] MEDS: GLIMEPIRIDE 2 MG TABLET PO SCH (10:27)
[2017-07-06] MEDS: RANOLAZINE 500 MG TABLET PO SCH (10:27)
[2017-07-06] MEDS: FERROUS SULFATE 325 MG TABLET PO SCH (10:28)
[2017-07-06] MEDS: DOCUSATE SODIUM 100 MG CAPSULE PO SCH (10:28)
[2017-07-06] MEDS: METOPROLOL TARTRATE 50 MG TABLET PO SCH (10:28)
[2017-07-06] MEDS: amLODIPine 5 MG TABLET PO SCH (10:28)
[2017-07-06] MEDS: MULTIVITAMIN (BEROCCA) TABLET PO SCH (10:28)
[2017-07-06] MEDS: PANTOPRAZOLE 40 MG TABLET PO SCH (10:28)
[2017-07-06] MEDS: valACYclovir 500 MG TABLET PO SCH (10:28)
[2017-07-06] MEDS: THEOPHYLLINE ER (24 HR) 400 MG CAPSULE PO SCH (10:28)
[2017-07-06] MEDS: NYSTATIN 500,000 UNIT/5 ML UDCUP SWISH/SWAL SCH ×2 (10:29→13:38)
[2017-07-06] MEDS: POLYETHYLENE GLYCOL POWDER 17 GM PACK PO SCH (10:29)
[2017-07-06] MEDS: CETIRIZINE 10 MG TABLET PO SCH (10:29)
[2017-07-06] MEDS: OMEGA 3 ACID ETHYL ESTERS 1 GM CAPSULE PO SCH (10:29)
[2017-07-06 12:03] VITALS: BP 152/69
== END 2017-07-06 15:03 | disposition swing bed (61) | DRG 178 ==
LOC: EDBD → EDUNIT# → N.ED 05:53 → SUATTDRO 08:43 → N.EDINP 08:43 → N.2E 09:40
PROVIDERS: ADMIT Internal Medicine Infectious Disease; ATTEND Internal Medicine

== ENCOUNTER 2017-07-25 07:21 | Inpatient (IN) ==
[2017-07-25 12:07] LABS: Apearance,Urine CLEAR (Clear); Bacteria,Urine Occasional /HPF (Few); Bilirubin,Urine Negative (Negative); Blood, Urine Negative (Negative); Glucose,Urine (UA) 50 mg/dL (Negative); Ketones,Urine Negative (Negative); Mucus,Urine Occasional /LPF (Occasional); Nitrite,Urine Negative (Negative); Protein,Urine 100 MG/DL; RBC,Urine 1 /HPF (0-4); Squamous Epithelial Cell,Urine Occasional /HPF (0-10); Urine Color Yellow (Yellow); Urine Specific Gravity 1.006 (1.001-1.035); Urine Urobilinogen < 2.0 EU/DL (0.2-1.0); WBC,Urine 1 /HPF (0-6)
[2017-07-25] MEDS ORDERED: hydrALAZINE 20 MG/1 ML VIAL IV PRN (12:40)
[2017-07-25 13:01] LABS: Basophils % 0.1 % (0.0-0.8); Hemoglobin 10.6 GM/DL (14.0-18.0); Immature Granulocytes % 1.8 %; Immature Granulocytes Absolute 0.14 #; Lymphocytes # 0.5 10*3/uL (1.4-4.0); Lymphocytes % 6.7 % (21.2-54.2); Mean Corpuscular HGB Conc 35.3 GM/DL (32-36); Mean Corpuscular Hemoglobin 33 PG (27-34); Mean Platelet Volume 9.8 FL (9.6-12.0); Monocytes # 0.4 10*3/uL (0.11-0.8); Monocytes % 4.9 % (1.7-12.7); Neutrophils # 6.6 10*3/uL (1.4-7.4); Neutrophils % 86.5 % (38.7-73.9); Platelet Count 132 T/CUMM (130-400); Red Blood Count 3.26 MC/CUMM (3.8-5.5); Red Cell Distribution Width 16.3 % (9.3-17.3); White Blood Count 7.6 T/CUMM (4-12)
[2017-07-25 13:30] LABS: Calcium 9.4 MG/DL (8.5-10.1); Osmolality,Calculated 281.8 MOS/KG (273-304)
[2017-07-25] MEDS ORDERED: ONDANSETRON 4 MG/2 ML VIAL IV PRN (16:42)
[2017-07-25] MEDS ORDERED: ALBUTEROL 2.5 MG/3 ML NEB RESP TX PRN (16:45)
[2017-07-25] MEDS: INSULIN LISPRO 100 UNIT/ML SUBCUT SCH ×3 (17:25→20:01)
[2017-07-25] MEDS: DEXTROSE 5% NACL 0.9% 1,000 ML IV SCH (19:23)
[2017-07-25] MEDS: MEROPENEM 1,000 MG in SYRINGE 1 EACH IV SCH (19:57)
[2017-07-25] MEDS: FONDAPARINUX 2.5 MG/0.5 ML SYRINGE SUBCUT SCH (19:58)
[2017-07-25] MEDS ORDERED: DEXTROSE 50% 25 GM/50 ML VIAL IV PRN (20:34)
[2017-07-25] MEDS: ALBUTEROL/IPRATROPIUM 3 ML NEB RESP TX SCH (20:44)
[2017-07-26] MEDS: DEXTROSE 5% NACL 0.9% 1,000 ML IV SCH ×4 (02:11→22:09)
[2017-07-26] MEDS: ALBUTEROL/IPRATROPIUM 3 ML NEB RESP TX SCH ×5 (02:27→23:52)
[2017-07-26 05:11] LABS: Basophils % 0.1 % (0.0-0.8); Hemoglobin 9.6 GM/DL (14.0-18.0); Immature Granulocytes % 1.6 %; Immature Granulocytes Absolute 0.11 #; Lymphocytes # 0.4 10*3/uL (1.4-4.0); Lymphocytes % 6.4 % (21.2-54.2); Mean Corpuscular HGB Conc 34.3 GM/DL (32-36); Mean Corpuscular Hemoglobin 32 PG (27-34); Mean Corpuscular Volume 92.7 FL (87-102); Mean Platelet Volume 9.7 FL (9.6-12.0); Monocytes # 0.5 10*3/uL (0.11-0.8); Monocytes % 7.4 % (1.7-12.7); NRBC # 0.02 10*3/uL; Neutrophils # 5.7 10*3/uL (1.4-7.4); Neutrophils % 84.5 % (38.7-73.9); Platelet Count 130 T/CUMM (130-400); Red Blood Count 3.02 MC/CUMM (3.8-5.5); Red Cell Distribution Width 16.7 % (9.3-17.3); White Blood Count 6.8 T/CUMM (4-12)
[2017-07-26 05:35] LABS: Hypochromasia 1+; Microcytosis Slight; Ovalocytes Slight; Platelet Estimate Normal
[2017-07-26 05:38] LABS: Potassium 3.6 MMOL/L (3.5-5.1)
[2017-07-26] MEDS: MEROPENEM 1,000 MG in SYRINGE 1 EACH IV SCH ×2 (05:58→17:29)
[2017-07-26] MEDS: INSULIN LISPRO 100 UNIT/ML SUBCUT SCH (08:57)
[2017-07-26] MEDS: FUROSEMIDE 40 MG/4 ML VIAL IV SCH (09:17)
[2017-07-26] MEDS: VANCOMYCIN INJ 1,000 MG in SODIUM CHLORIDE 0.9% 250 ML IV SCH ×2 (10:05→21:59)
[2017-07-26] MEDS ORDERED: THEOPHYLLINE ER (24 HR) 400 MG CAPSULE PO SCH (11:30)
[2017-07-26] MEDS: amLODIPine 5 MG TABLET PO SCH (14:40)
[2017-07-26] MEDS: METOPROLOL TARTRATE 25 MG TABLET PO SCH ×2 (14:40→20:10)
[2017-07-26] MEDS: FONDAPARINUX 2.5 MG/0.5 ML SYRINGE SUBCUT SCH (17:29)
[2017-07-26] MEDS: ACETAMINOPHEN 325 MG/10.15 ML UDCUP PO PRN (17:43)
[2017-07-26] MEDS ORDERED: POTASSIUM CHLORIDE 20 MEQ TABLET PO SCH (19:00)
[2017-07-26] MEDS: POTASSIUM CHLORIDE 20 MEQ/15 ML UDCUP PO SCH (20:09)
[2017-07-26] MEDS: valACYclovir 500 MG TABLET PO SCH (20:10)
[2017-07-26] MEDS: RANOLAZINE 500 MG TABLET PO SCH (20:10)
[2017-07-26] MEDS: URSODIOL 300 MG CAPSULE PO SCH (20:10)
[2017-07-27] MEDS: DEXTROSE 5% NACL 0.9% 1,000 ML IV SCH ×2 (00:08→13:37)
[2017-07-27] MEDS: MEROPENEM 1,000 MG in SYRINGE 1 EACH IV SCH ×2 (05:22→17:07)
[2017-07-27] MEDS: ALBUTEROL/IPRATROPIUM 3 ML NEB RESP TX SCH ×3 (07:38→20:01)
[2017-07-27] MEDS: POLYETHYLENE GLYCOL POWDER 17 GM PACK PO SCH (08:38)
[2017-07-27] MEDS: URSODIOL 300 MG CAPSULE PO SCH ×2 (08:39→20:18)
[2017-07-27] MEDS: METOPROLOL TARTRATE 25 MG TABLET PO SCH ×2 (08:39→20:19)
[2017-07-27] MEDS: valACYclovir 500 MG TABLET PO SCH ×2 (08:39→20:19)
[2017-07-27] MEDS: MULTIVITAMIN (BEROCCA) TABLET PO SCH (08:39)
[2017-07-27] MEDS: MONTELUKAST 10 MG TABLET PO SCH (08:39)
[2017-07-27] MEDS: amLODIPine 5 MG TABLET PO SCH (08:39)
[2017-07-27] MEDS: VALSARTAN 160 MG TABLET PO SCH ×2 (08:39→20:19)
[2017-07-27] MEDS ORDERED: ISOSORBIDE MONONITRATE 60 MG TABLET PO SCH (09:00)
[2017-07-27] MEDS ORDERED: ASPIRIN EC 81 MG TABLET PO SCH (09:00)
[2017-07-27] MEDS: ASPIRIN CHEW 81 MG TABLET PO SCH (09:17)
[2017-07-27] MEDS: FUROSEMIDE 40 MG/4 ML VIAL IV SCH (09:17)
[2017-07-27] MEDS: THEOPHYLLINE 5.33 MG/ML 30 ML/BOTTLE NG SCH ×3 (09:17→21:13)
[2017-07-27] MEDS: ISOSORBIDE DINITRATE 20 MG TABLET NG SCH ×3 (09:19→20:19)
[2017-07-27] MEDS: VANCOMYCIN INJ 1,000 MG in SODIUM CHLORIDE 0.9% 250 ML IV SCH ×2 (09:49→23:29)
[2017-07-27] MEDS: RANOLAZINE 500 MG TABLET PO SCH (13:55)
[2017-07-27] MEDS ORDERED: GLUCAGON 1 MG VIAL IM PRN (16:15)
[2017-07-27] MEDS ORDERED: DEXTROSE 50% 25 GM/50 ML VIAL IV PRN (16:15)
[2017-07-27] MEDS: SODIUM CHLORIDE 0.45% 1,000 ML IV SCH (16:30)
[2017-07-27] MEDS: INSULIN LISPRO 100 UNIT/ML SUBCUT SCH ×2 (17:03→20:06)
[2017-07-27] MEDS: ROSUVASTATIN 10 MG TABLET PO SCH (20:18)
[2017-07-27] MEDS: POTASSIUM CHLORIDE 20 MEQ/15 ML UDCUP PO SCH (20:19)
[2017-07-27] MEDS: ACETAMINOPHEN 325 MG/10.15 ML UDCUP PO PRN (23:30)
[2017-07-28] MEDS: ALBUTEROL/IPRATROPIUM 3 ML NEB RESP TX SCH ×4 (00:15→19:50)
[2017-07-28] MEDS: THEOPHYLLINE 5.33 MG/ML 30 ML/BOTTLE NG SCH ×4 (04:18→21:38)
[2017-07-28] MEDS: MEROPENEM 1,000 MG in SYRINGE 1 EACH IV SCH ×2 (04:18→16:50)
[2017-07-28 06:46] LABS: Basophils % 0.4 % (0.0-0.8); Eosinophils % 0.6 % (0.00-10.9); Hematocrit 30.8 VOL% (42.0-52.0); Hemoglobin 10.2 GM/DL (14.0-18.0); Immature Granulocytes % 6.3 %; Immature Granulocytes Absolute 0.34 #; Lymphocytes # 0.6 10*3/uL (1.4-4.0); Lymphocytes % 10.6 % (21.2-54.2); Mean Corpuscular HGB Conc 33.1 GM/DL (32-36); Mean Corpuscular Hemoglobin 32 PG (27-34); Mean Corpuscular Volume 95.7 FL (87-102); Mean Platelet Volume 9.7 FL (9.6-12.0); Monocytes # 0.5 10*3/uL (0.11-0.8); Monocytes % 9.3 % (1.7-12.7); NRBC # 0.02 10*3/uL; Neutrophils # 3.9 10*3/uL (1.4-7.4); Neutrophils % 72.8 % (38.7-73.9); Platelet Count 204 T/CUMM (130-400); Red Blood Count 3.22 MC/CUMM (3.8-5.5); Red Cell Distribution Width 16.5 % (9.3-17.3); White Blood Count 5.4 T/CUMM (4-12)
[2017-07-28 06:51] LABS: PT Patient Result 10.9 SECS
[2017-07-28 07:11] LABS: Band Neutrophils 1 % (0-10); Giant Platelets Few; Hypochromasia Slight; Lymphocytes 9 % (20-55); Ovalocytes Slight; Platelet Estimate Adequate; Segmented Neutrophils 82 % (50-85); Total Cells Counted 100
[2017-07-28 07:12] LABS: Microcytosis Slight
[2017-07-28] MEDS: INSULIN LISPRO 100 UNIT/ML SUBCUT SCH ×4 (08:12→20:23)
[2017-07-28] MEDS: VALSARTAN 160 MG TABLET PO SCH ×2 (13:19→21:36)
[2017-07-28] MEDS: valACYclovir 500 MG TABLET PO SCH ×2 (13:19→21:35)
[2017-07-28] MEDS: ASPIRIN CHEW 81 MG TABLET PO SCH (13:20)
[2017-07-28] MEDS: amLODIPine 5 MG TABLET PO SCH (13:20)
[2017-07-28] MEDS: MONTELUKAST 10 MG TABLET PO SCH (13:20)
[2017-07-28] MEDS: METOPROLOL TARTRATE 25 MG TABLET PO SCH ×2 (13:20→21:35)
[2017-07-28] MEDS: FUROSEMIDE 40 MG/4 ML VIAL IV SCH (13:20)
[2017-07-28] MEDS: ISOSORBIDE DINITRATE 20 MG TABLET NG SCH ×3 (13:20→21:36)
[2017-07-28] MEDS: MULTIVITAMIN (BEROCCA) TABLET PO SCH (13:20)
[2017-07-28] MEDS: POLYETHYLENE GLYCOL POWDER 17 GM PACK PO SCH (13:20)
[2017-07-28] MEDS: URSODIOL 300 MG CAPSULE PO SCH ×2 (13:21→21:36)
[2017-07-28] MEDS: VANCOMYCIN INJ 1,000 MG in SODIUM CHLORIDE 0.9% 250 ML IV SCH ×2 (13:23→13:24)
[2017-07-28] MEDS: SODIUM CHLORIDE 0.45% 1,000 ML IV SCH (13:58)
[2017-07-28] MEDS ORDERED: PROPOFOL 200 MG/20 ML VIAL IV ONE (14:29)
[2017-07-28] MEDS ORDERED: ETOMIDATE 20 MG/10 ML VIAL IV ONE (14:29)
[2017-07-28] MEDS ORDERED: LIDOCAINE 1% 5 ML VIAL ONE (14:29)
[2017-07-28] MEDS: ACETAMINOPHEN 325 MG/10.15 ML UDCUP PO PRN (21:30)
[2017-07-28] MEDS: ROSUVASTATIN 10 MG TABLET PO SCH (21:36)
[2017-07-28] MEDS: POTASSIUM CHLORIDE 20 MEQ/15 ML UDCUP PO SCH (21:36)
[2017-07-29] MEDS: ALBUTEROL/IPRATROPIUM 3 ML NEB RESP TX SCH ×3 (00:36→12:51)
[2017-07-29] MEDS: THEOPHYLLINE 5.33 MG/ML 30 ML/BOTTLE NG SCH ×3 (02:50→15:33)
[2017-07-29] MEDS: MEROPENEM 1,000 MG in SYRINGE 1 EACH IV SCH (04:05)
[2017-07-29] MEDS: SODIUM CHLORIDE 0.45% 1,000 ML IV SCH (04:09)
[2017-07-29 05:53] LABS: Calcium 7.8 MG/DL (8.5-10.1); Osmolality,Calculated 288.8 MOS/KG (273-304); Potassium 3.4 MMOL/L (3.5-5.1); Prealbumin 11.3 MG/DL (20-40)
[2017-07-29] MEDS ORDERED: POTASSIUM CHLORIDE 20 MEQ/15 ML UDCUP PER TUBE ONE (07:23)
[2017-07-29] MEDS: VANCOMYCIN INJ 1,000 MG in SODIUM CHLORIDE 0.9% 250 ML IV SCH (08:30)
[2017-07-29] MEDS ORDERED: CEFDINIR 300 MG CAPSULE PO SCH (09:00)
[2017-07-29] MEDS: FUROSEMIDE 40 MG/4 ML VIAL IV SCH (09:26)
[2017-07-29] MEDS: MULTIVITAMIN (BEROCCA) TABLET PO SCH (09:27)
[2017-07-29] MEDS: ISOSORBIDE DINITRATE 20 MG TABLET NG SCH ×2 (09:27→15:33)
[2017-07-29] MEDS: MONTELUKAST 10 MG TABLET PO SCH (09:27)
[2017-07-29] MEDS: URSODIOL 300 MG CAPSULE PO SCH (09:27)
[2017-07-29] MEDS: ASPIRIN CHEW 81 MG TABLET PO SCH (09:27)
[2017-07-29] MEDS: VALSARTAN 160 MG TABLET PO SCH (09:27)
[2017-07-29] MEDS: amLODIPine 5 MG TABLET PO SCH (09:27)
[2017-07-29] MEDS: POLYETHYLENE GLYCOL POWDER 17 GM PACK PO SCH (09:36)
[2017-07-29] MEDS: METOPROLOL TARTRATE 25 MG TABLET PO SCH (09:36)
[2017-07-29] MEDS: valACYclovir 500 MG TABLET PO SCH (09:36)
[2017-07-29] MEDS: INSULIN LISPRO 100 UNIT/ML SUBCUT SCH ×3 (09:53→17:14)
[2017-07-29 17:14] VITALS: BP 145/82
[2017-07-29] MEDS ORDERED: VANCOMYCIN 50 MG/ML 60 ML/BOTTLE PO SCH (18:00)
== END 2017-07-29 18:07 | disposition swing bed (61) | DRG 177 ==
LOC: N.CC 10:16 → SUATTDRO 10:16 → N.5E 07-27 22:12
PROVIDERS: ADMIT Internal Medicine; ATTEND Internal Medicine
PROC: EGDWPEG (ICD-10-PCS; 2017-07-28 09:35)

== ENCOUNTER 2017-09-08 17:12 | Inpatient (IN) ==
[2017-09-08 17:58] LABS: Basophils % 0.5 % (0.0-0.8); Eosinophils # 0.1 10*3/uL (0.0-0.87); Eosinophils % 1.3 % (0.00-10.9); Hematocrit 34.7 VOL% (42.0-52.0); Hemoglobin 11.3 GM/DL (14.0-18.0); Immature Granulocytes % 0.5 %; Immature Granulocytes Absolute 0.04 #; Lymphocytes # 1.2 10*3/uL (1.4-4.0); Lymphocytes % 13.5 % (21.2-54.2); Mean Corpuscular HGB Conc 32.6 GM/DL (32-36); Mean Corpuscular Hemoglobin 31 PG (27-34); Mean Corpuscular Volume 93.5 FL (87-102); Mean Platelet Volume 10.2 FL (9.6-12.0); Monocytes # 0.8 10*3/uL (0.11-0.8); Monocytes % 9.1 % (1.7-12.7); Neutrophils # 6.4 10*3/uL (1.4-7.4); Neutrophils % 75.1 % (38.7-73.9); Platelet Count 241 T/CUMM (130-400); Red Blood Count 3.71 MC/CUMM (3.8-5.5); Red Cell Distribution Width 14.6 % (9.3-17.3); White Blood Count 8.5 T/CUMM (4-12)
[2017-09-08 18:06] LABS: PT Patient Result 10.1 SECS; Partial Thromboplastin Time 28.3 SECS (0-40)
[2017-09-08 18:42] LABS: Alanine Aminotransferase 32 U/L (16-61); Alkaline Phosphatase 108 U/L (45-117); Aspartate Amino Transferase 28 U/L (0-37); Blood Urea Nitrogen 19 MG/DL (7-18); CKMB % 3.6 %; Calcium 9.1 MG/DL (8.5-10.1); Glucose 104 MG/DL (74-106); Osmolality,Calculated 278.5 MOS/KG (273-304); Potassium 3.5 MMOL/L (3.5-5.1); Sodium 139 MMOL/L (136-145); Total Protein 7.1 G/DL (6.4-8.3); Troponin I Only < 0.015 NG/ML (0.00-0.045)
[2017-09-08] MEDS ORDERED: FUROSEMIDE 40 MG/4 ML VIAL IV STA (19:05)
[2017-09-08] MEDS ORDERED: ALBUTEROL/IPRATROPIUM 3 ML NEB RESP TX STA (19:05)
[2017-09-08] MEDS ORDERED: FUROSEMIDE 40 MG/4 ML VIAL ONE (19:16)
[2017-09-08] MEDS ORDERED: ONDANSETRON 4 MG/2 ML VIAL IV PRN (22:01)
[2017-09-08] MEDS ORDERED: NITROGLYCERIN SL 0.4 MG TABLET SL PRN (22:01)
[2017-09-08] MEDS ORDERED: MORPHINE 4 MG/1 ML VIAL IV PRN (22:01)
[2017-09-08] MEDS ORDERED: POLYETHYLENE GLYCOL POWDER 17 GM PACK PEG PRN (22:01)
[2017-09-08] MEDS ORDERED: DEXTROSE 50% 25 GM/50 ML VIAL IV PRN (22:01)
[2017-09-08] MEDS ORDERED: GLUCAGON 1 MG VIAL IM PRN (22:01)
[2017-09-08] MEDS ORDERED: THEOPHYLLINE 5.33 MG/ML 30 ML/BOTTLE PEG PRN (22:01)
[2017-09-08] MEDS: TAMSULOSIN 0.4 MG CAPSULE PO SCH (23:30)
[2017-09-08] MEDS: URSODIOL 300 MG CAPSULE PEG SCH (23:30)
[2017-09-08] MEDS: ROSUVASTATIN 10 MG TABLET PEG SCH (23:31)
[2017-09-08] MEDS: APIXABAN 5 MG TABLET PEG SCH (23:31)
[2017-09-08] MEDS: METOPROLOL TARTRATE 25 MG TABLET PEG SCH (23:31)
[2017-09-08] MEDS: GABAPENTIN 100 MG CAPSULE PEG SCH (23:31)
[2017-09-08] MEDS: VALSARTAN 160 MG TABLET PEG SCH (23:31)
[2017-09-08] MEDS: GLIMEPIRIDE 2 MG TABLET PEG SCH (23:31)
[2017-09-08] MEDS: INSULIN REGULAR 100 UNIT/ML SUBCUT SCH (23:32)
[2017-09-09 05:14] LABS: Theophylline < 2.0 UG/ML (10-20)
[2017-09-09 05:19] LABS: Hemoglobin A1C 7.3 % (4.2-6.3)
[2017-09-09 05:34] LABS: Risk Ratio 2.33; VLDL CHOLESTEROL 18.2 MG/DL
[2017-09-09] MEDS: INSULIN REGULAR 100 UNIT/ML SUBCUT SCH ×4 (08:50→22:03)
[2017-09-09] MEDS: ISOSORBIDE DINITRATE 20 MG TABLET PEG SCH (08:51)
[2017-09-09] MEDS: URSODIOL 300 MG CAPSULE PEG SCH ×3 (08:51→22:02)
[2017-09-09] MEDS: GLIMEPIRIDE 2 MG TABLET PEG SCH ×3 (08:51→22:02)
[2017-09-09] MEDS: APIXABAN 5 MG TABLET PEG SCH ×3 (08:51→22:03)
[2017-09-09] MEDS: POTASSIUM CHLORIDE 20 MEQ TABLET PO SCH (08:52)
[2017-09-09] MEDS: METOPROLOL TARTRATE 25 MG TABLET PEG SCH ×3 (08:52→22:03)
[2017-09-09] MEDS: PANTOPRAZOLE 40 MG VIAL IV SCH (08:52)
[2017-09-09] MEDS: amLODIPine 5 MG TABLET PEG SCH (08:52)
[2017-09-09] MEDS: ASPIRIN EC 81 MG TABLET PO SCH (08:52)
[2017-09-09] MEDS: FUROSEMIDE 40 MG/4 ML VIAL IV SCH ×2 (08:52→17:11)
[2017-09-09] MEDS ORDERED: B5 PEG SCH (09:00)
[2017-09-09] MEDS ORDERED: B6 PEG SCH (09:00)
[2017-09-09] MEDS ORDERED: INSULIN GLARGINE 100 UNIT/ML SUBCUT SCH (09:00)
[2017-09-09] MEDS ORDERED: IRON PEG SCH (09:00)
[2017-09-09] MEDS ORDERED: B2 PEG SCH (09:00)
[2017-09-09] MEDS ORDERED: B1 PEG SCH (09:00)
[2017-09-09] MEDS ORDERED: METH PEG SCH (09:00)
[2017-09-09] MEDS ORDERED: [UNRECOGNIZED DRUG - OTHER] PEG SCH (09:00)
[2017-09-09] MEDS ORDERED: B3 PEG SCH (09:00)
[2017-09-09] MEDS ORDERED: CHOLN PEG SCH (09:00)
[2017-09-09] MEDS: ALBUTEROL/IPRATROPIUM 3 ML NEB RESP TX PRN (09:05)
[2017-09-09] MEDS: CYANOCOBALAMIN 500 MCG TABLET PO SCH (09:33)
[2017-09-09] MEDS: MULTIVITAMIN LIQUID (CENTRUM) 60 ML BOTTLE PO SCH (15:43)
[2017-09-09] MEDS: TOUJEO SUBCUT SCH (15:44)
[2017-09-09] MEDS: GABAPENTIN 100 MG CAPSULE PEG SCH ×2 (18:03→22:03)
[2017-09-09] MEDS: TAMSULOSIN 0.4 MG CAPSULE PO SCH ×2 (18:04→22:03)
[2017-09-09] MEDS: VALSARTAN 160 MG TABLET PEG SCH ×2 (18:04→22:02)
[2017-09-09] MEDS: ROSUVASTATIN 10 MG TABLET PEG SCH (22:02)
[2017-09-10] MEDS: ALBUTEROL/IPRATROPIUM 3 ML NEB RESP TX PRN (01:24)
[2017-09-10 04:59] LABS: Basophils % 0.3 % (0.0-0.8); Eosinophils # 0.2 10*3/uL (0.0-0.87); Eosinophils % 2.6 % (0.00-10.9); Hematocrit 33.9 VOL% (42.0-52.0); Hemoglobin 11.2 GM/DL (14.0-18.0); Immature Granulocytes % 0.5 %; Immature Granulocytes Absolute 0.04 #; Lymphocytes # 0.9 10*3/uL (1.4-4.0); Lymphocytes % 12.1 % (21.2-54.2); Mean Corpuscular Hemoglobin 30 PG (27-34); Mean Corpuscular Volume 91.1 FL (87-102); Mean Platelet Volume 10.3 FL (9.6-12.0); Monocytes # 0.7 10*3/uL (0.11-0.8); Monocytes % 9.3 % (1.7-12.7); Neutrophils # 5.6 10*3/uL (1.4-7.4); Neutrophils % 75.2 % (38.7-73.9); Platelet Count 233 T/CUMM (130-400); Red Blood Count 3.72 MC/CUMM (3.8-5.5); Red Cell Distribution Width 14.3 % (9.3-17.3); White Blood Count 7.4 T/CUMM (4-12)
[2017-09-10 05:41] LABS: Calcium 8.6 MG/DL (8.5-10.1); Osmolality,Calculated 281.5 MOS/KG (273-304); Potassium 3.6 MMOL/L (3.5-5.1)
[2017-09-10] MEDS: ISOSORBIDE DINITRATE 20 MG TABLET PEG SCH ×2 (06:30→09:31)
[2017-09-10] MEDS: URSODIOL 300 MG CAPSULE PEG SCH ×3 (06:30→18:45)
[2017-09-10] MEDS: GLIMEPIRIDE 2 MG TABLET PEG SCH ×2 (06:31→09:30)
[2017-09-10] MEDS: METOPROLOL TARTRATE 25 MG TABLET PEG SCH ×2 (06:31→09:31)
[2017-09-10] MEDS: amLODIPine 5 MG TABLET PEG SCH ×2 (06:32→09:32)
[2017-09-10] MEDS: POTASSIUM CHLORIDE 20 MEQ TABLET PO SCH ×2 (06:32→09:31)
[2017-09-10] MEDS: APIXABAN 5 MG TABLET PEG SCH ×2 (06:32→09:30)
[2017-09-10] MEDS: ASPIRIN EC 81 MG TABLET PO SCH ×2 (06:33→09:30)
[2017-09-10] MEDS: CYANOCOBALAMIN 500 MCG TABLET PO SCH ×2 (06:33→09:32)
[2017-09-10] MEDS: PANTOPRAZOLE 40 MG VIAL IV SCH ×2 (06:42→09:32)
[2017-09-10] MEDS: FUROSEMIDE 40 MG/4 ML VIAL IV SCH ×2 (06:42→09:29)
[2017-09-10] MEDS ORDERED: NON-FORMULARY MEDICATION SUBCUT SCH (09:00)
[2017-09-10] MEDS: INSULIN REGULAR 100 UNIT/ML SUBCUT SCH ×4 (09:28→22:47)
[2017-09-10] MEDS: MULTIVITAMIN LIQUID (CENTRUM) 60 ML BOTTLE PO SCH (09:30)
[2017-09-10] MEDS: TOUJEO SUBCUT SCH (09:31)
[2017-09-10] MEDS ORDERED: FUROSEMIDE 40 MG/4 ML VIAL IV SCH (16:00)
[2017-09-10] MEDS: GABAPENTIN 50 MG/ML 30 ML/BOTTLE PEG SCH ×2 (17:47→22:48)
[2017-09-10] MEDS: ROSUVASTATIN 10 MG TABLET PEG SCH ×2 (17:48→22:47)
[2017-09-10] MEDS: TAMSULOSIN 0.4 MG CAPSULE PO SCH ×2 (17:48→22:47)
[2017-09-10] MEDS: VALSARTAN 160 MG TABLET PEG SCH ×2 (17:49→22:47)
[2017-09-10] MEDS: METOPROLOL TARTRATE 50 MG TABLET PEG SCH (17:49)
[2017-09-10] MEDS ORDERED: METOPROLOL TARTRATE 25 MG TABLET PEG SCH (18:00)
[2017-09-10] MEDS ORDERED: APIXABAN 5 MG TABLET PEG SCH (18:00)
[2017-09-10] MEDS ORDERED: URSODIOL 300 MG CAPSULE PEG SCH (18:00)
[2017-09-10] MEDS ORDERED: GLIMEPIRIDE 2 MG TABLET PEG SCH (18:00)
[2017-09-11 05:12] LABS: Basophils % 0.3 % (0.0-0.8); Eosinophils # 0.2 10*3/uL (0.0-0.87); Eosinophils % 2.7 % (0.00-10.9); Hematocrit 31.6 VOL% (42.0-52.0); Hemoglobin 10.7 GM/DL (14.0-18.0); Immature Granulocytes % 0.7 %; Immature Granulocytes Absolute 0.05 #; Lymphocytes # 0.9 10*3/uL (1.4-4.0); Lymphocytes % 12.1 % (21.2-54.2); Mean Corpuscular HGB Conc 33.9 GM/DL (32-36); Mean Corpuscular Hemoglobin 31 PG (27-34); Mean Corpuscular Volume 91.1 FL (87-102); Mean Platelet Volume 11.1 FL (9.6-12.0); Monocytes % 12.9 % (1.7-12.7); Neutrophils # 5.5 10*3/uL (1.4-7.4); Neutrophils % 71.3 % (38.7-73.9); Platelet Count 207 T/CUMM (130-400); Red Blood Count 3.47 MC/CUMM (3.8-5.5); Red Cell Distribution Width 14.2 % (9.3-17.3); White Blood Count 7.7 T/CUMM (4-12)
[2017-09-11 05:41] LABS: Calcium 8.3 MG/DL (8.5-10.1); Osmolality,Calculated 281.5 MOS/KG (273-304); Potassium 3.4 MMOL/L (3.5-5.1)
[2017-09-11] MEDS: ALBUTEROL/IPRATROPIUM 3 ML NEB RESP TX PRN (05:42)
[2017-09-11] MEDS: GLIMEPIRIDE 2 MG TABLET PEG SCH ×2 (05:45→17:47)
[2017-09-11] MEDS: URSODIOL 300 MG CAPSULE PEG SCH ×2 (05:45→17:47)
[2017-09-11] MEDS: METOPROLOL TARTRATE 50 MG TABLET PEG SCH ×2 (05:46→17:47)
[2017-09-11] MEDS: APIXABAN 5 MG TABLET PEG SCH ×2 (05:46→17:47)
[2017-09-11] MEDS: POTASSIUM CHLORIDE 20 MEQ TABLET PO SCH ×2 (05:46→08:27)
[2017-09-11] MEDS: MULTIVITAMIN LIQUID (CENTRUM) 60 ML BOTTLE PO SCH ×2 (05:47→08:26)
[2017-09-11] MEDS: TOUJEO SUBCUT SCH ×2 (05:47→08:27)
[2017-09-11] MEDS: PANTOPRAZOLE 40 MG VIAL IV SCH ×2 (05:48→08:27)
[2017-09-11] MEDS ORDERED: amLODIPine 5 MG TABLET PEG SCH (06:00)
[2017-09-11] MEDS ORDERED: ISOSORBIDE DINITRATE 20 MG TABLET PEG SCH (06:00)
[2017-09-11] MEDS ORDERED: FUROSEMIDE 40 MG/4 ML VIAL IV SCH (06:00)
[2017-09-11] MEDS ORDERED: CYANOCOBALAMIN 500 MCG TABLET PO SCH (06:00)
[2017-09-11] MEDS ORDERED: ASPIRIN EC 81 MG TABLET PO SCH (06:00)
[2017-09-11] MEDS: INSULIN REGULAR 100 UNIT/ML SUBCUT SCH ×4 (08:25→18:24)
[2017-09-11] MEDS: amLODIPine 5 MG TABLET PEG SCH (08:56)
[2017-09-11] MEDS: ASPIRIN EC 81 MG TABLET PO SCH (08:56)
[2017-09-11] MEDS: ISOSORBIDE DINITRATE 20 MG TABLET PEG SCH (08:56)
[2017-09-11] MEDS: CYANOCOBALAMIN 500 MCG TABLET PO SCH (08:57)
[2017-09-11] MEDS ORDERED: TORSEMIDE 20 MG TABLET PO SCH (11:30)
[2017-09-11] MEDS: GABAPENTIN 50 MG/ML 30 ML/BOTTLE PEG SCH ×2 (17:46→21:08)
[2017-09-11] MEDS: ROSUVASTATIN 10 MG TABLET PEG SCH ×2 (17:47→21:08)
[2017-09-11] MEDS: TAMSULOSIN 0.4 MG CAPSULE PO SCH ×2 (17:47→21:08)
[2017-09-11] MEDS: VALSARTAN 160 MG TABLET PEG SCH ×2 (17:48→21:08)
[2017-09-12] MEDS: INSULIN REGULAR 100 UNIT/ML SUBCUT SCH ×4 (00:35→17:43)
[2017-09-12 05:27] LABS: Basophils % 0.3 % (0.0-0.8); Eosinophils # 0.3 10*3/uL (0.0-0.87); Eosinophils % 3.5 % (0.00-10.9); Hematocrit 34.5 VOL% (42.0-52.0); Hemoglobin 11.4 GM/DL (14.0-18.0); Immature Granulocytes % 0.4 %; Immature Granulocytes Absolute 0.03 #; Lymphocytes % 12.8 % (21.2-54.2); Mean Corpuscular Hemoglobin 31 PG (27-34); Mean Corpuscular Volume 92.2 FL (87-102); Mean Platelet Volume 10.8 FL (9.6-12.0); Monocytes # 0.8 10*3/uL (0.11-0.8); Monocytes % 10.5 % (1.7-12.7); Neutrophils # 5.4 10*3/uL (1.4-7.4); Neutrophils % 72.5 % (38.7-73.9); Platelet Count 230 T/CUMM (130-400); Red Blood Count 3.74 MC/CUMM (3.8-5.5); Red Cell Distribution Width 13.9 % (9.3-17.3); White Blood Count 7.4 T/CUMM (4-12)
[2017-09-12] MEDS: GLIMEPIRIDE 2 MG TABLET PEG SCH ×2 (05:34→17:33)
[2017-09-12] MEDS: TORSEMIDE 20 MG TABLET PO SCH (05:34)
[2017-09-12] MEDS: amLODIPine 5 MG TABLET PEG SCH (05:35)
[2017-09-12] MEDS: POTASSIUM CHLORIDE 20 MEQ TABLET PO SCH (05:35)
[2017-09-12] MEDS: METOPROLOL TARTRATE 50 MG TABLET PEG SCH ×2 (05:35→17:33)
[2017-09-12] MEDS: ISOSORBIDE DINITRATE 20 MG TABLET PEG SCH (05:35)
[2017-09-12] MEDS: PANTOPRAZOLE 40 MG VIAL IV SCH (05:36)
[2017-09-12] MEDS: ASPIRIN EC 81 MG TABLET PO SCH (05:36)
[2017-09-12] MEDS: URSODIOL 300 MG CAPSULE PEG SCH ×2 (05:36→17:33)
[2017-09-12] MEDS: APIXABAN 5 MG TABLET PEG SCH ×2 (05:36→17:33)
[2017-09-12] MEDS: MULTIVITAMIN LIQUID (CENTRUM) 60 ML BOTTLE PO SCH (05:37)
[2017-09-12] MEDS: CYANOCOBALAMIN 500 MCG TABLET PO SCH (05:38)
[2017-09-12 05:48] LABS: Calcium 8.6 MG/DL (8.5-10.1); Osmolality,Calculated 281.5 MOS/KG (273-304); Potassium 3.7 MMOL/L (3.5-5.1)
[2017-09-12] MEDS: TOUJEO SUBCUT SCH (08:10)
[2017-09-12] MEDS: VALSARTAN 160 MG TABLET PEG SCH ×2 (17:32→22:49)
[2017-09-12] MEDS: ROSUVASTATIN 10 MG TABLET PEG SCH ×2 (17:33→22:49)
[2017-09-12] MEDS: TAMSULOSIN 0.4 MG CAPSULE PO SCH ×2 (17:34→22:49)
[2017-09-12] MEDS: GABAPENTIN 50 MG/ML 30 ML/BOTTLE PEG SCH (22:49)
[2017-09-13] MEDS: INSULIN REGULAR 100 UNIT/ML SUBCUT SCH ×3 (02:43→12:18)
[2017-09-13 05:09] LABS: Osmolality,Calculated 283.4 MOS/KG (273-304); Potassium 3.8 MMOL/L (3.5-5.1); Prealbumin 27.1 MG/DL (20-40)
[2017-09-13] MEDS: GLIMEPIRIDE 2 MG TABLET PEG SCH (05:47)
[2017-09-13] MEDS: URSODIOL 300 MG CAPSULE PEG SCH (05:47)
[2017-09-13] MEDS: ASPIRIN EC 81 MG TABLET PO SCH (05:47)
[2017-09-13] MEDS: ISOSORBIDE DINITRATE 20 MG TABLET PEG SCH (05:47)
[2017-09-13] MEDS: POTASSIUM CHLORIDE 20 MEQ TABLET PO SCH (05:48)
[2017-09-13] MEDS: METOPROLOL TARTRATE 50 MG TABLET PEG SCH (05:48)
[2017-09-13] MEDS: APIXABAN 5 MG TABLET PEG SCH (05:48)
[2017-09-13] MEDS: TORSEMIDE 20 MG TABLET PO SCH (05:48)
[2017-09-13] MEDS: amLODIPine 5 MG TABLET PEG SCH (05:48)
[2017-09-13] MEDS: MULTIVITAMIN LIQUID (CENTRUM) 60 ML BOTTLE PO SCH (05:49)
[2017-09-13] MEDS: PANTOPRAZOLE 40 MG VIAL IV SCH (05:50)
[2017-09-13] MEDS: CYANOCOBALAMIN 500 MCG TABLET PO SCH (05:50)
[2017-09-13] MEDS: TOUJEO SUBCUT SCH (09:59)
[2017-09-13 11:56] VITALS: BP 165/91
== END 2017-09-13 16:44 | disposition home or self-care (01) | DRG 291 ==
LOC: N.ED 17:12 → N.EDINP 20:20 → SUATTDRO 20:20 → N.TELEN 20:47
PROVIDERS: ADMIT Internal Medicine; ATTEND Internal Medicine

== ENCOUNTER 2017-09-14 16:25 | Inpatient (IN) ==
[2017-09-14] MEDS ORDERED: BUMETANIDE 1 MG/4 ML VIAL IV STA (17:23)
[2017-09-14] MEDS ORDERED: BUMETANIDE 1 MG/4 ML VIAL ONE (17:48)
[2017-09-14 18:05] LABS: Basophils % 0.2 % (0.0-0.8); Eosinophils # 0.1 10*3/uL (0.0-0.87); Eosinophils % 0.8 % (0.00-10.9); Hematocrit 34.1 VOL% (42.0-52.0); Hemoglobin 11.4 GM/DL (14.0-18.0); Immature Granulocytes % 0.5 %; Immature Granulocytes Absolute 0.04 #; Lymphocytes # 0.9 10*3/uL (1.4-4.0); Lymphocytes % 10.1 % (21.2-54.2); Mean Corpuscular HGB Conc 33.4 GM/DL (32-36); Mean Corpuscular Hemoglobin 31 PG (27-34); Mean Corpuscular Volume 92.7 FL (87-102); Mean Platelet Volume 10.6 FL (9.6-12.0); Monocytes # 0.8 10*3/uL (0.11-0.8); Monocytes % 8.8 % (1.7-12.7); NRBC # 0.02 10*3/uL; Neutrophils % 79.6 % (38.7-73.9); Platelet Count 219 T/CUMM (130-400); Red Blood Count 3.68 MC/CUMM (3.8-5.5); Red Cell Distribution Width 14.1 % (9.3-17.3); White Blood Count 8.8 T/CUMM (4-12)
[2017-09-14 18:26] LABS: Alanine Aminotransferase 36 U/L (16-61); Albumin 2.9 G/DL (3.4-5.0); Alkaline Phosphatase 99 U/L (45-117); Aspartate Amino Transferase 26 U/L (0-37); Bilirubin,Total < 0.39 MG/DL (0.2-1.0); Blood Urea Nitrogen 22 MG/DL (7-18); Calcium 8.9 MG/DL (8.5-10.1); Glucose 152 MG/DL (74-106); Osmolality,Calculated 286.3 MOS/KG (273-304); Potassium 3.8 MMOL/L (3.5-5.1); Sodium 141 MMOL/L (136-145); Total Protein 6.2 G/DL (6.4-8.3)
[2017-09-14] MEDS ORDERED: POLYETHYLENE GLYCOL POWDER 17 GM PACK PEG PRN (19:21)
[2017-09-14] MEDS ORDERED: ALBUTEROL/IPRATROPIUM 3 ML NEB RESP TX PRN (19:21)
[2017-09-14] MEDS ORDERED: THEOPHYLLINE 5.33 MG/ML 30 ML/BOTTLE PEG PRN (19:21)
[2017-09-14] MEDS ORDERED: NITROGLYCERIN SL 0.4 MG TABLET SL PRN (19:21)
[2017-09-14] MEDS ORDERED: ONDANSETRON 4 MG/2 ML VIAL IV PRN (19:55)
[2017-09-14] MEDS ORDERED: ACETAMINOPHEN 325 MG TABLET PO PRN (19:55)
[2017-09-14] MEDS ORDERED: DEXTROSE 50% 25 GM/50 ML VIAL IV PRN (19:55)
[2017-09-14] MEDS ORDERED: MORPHINE 4 MG/1 ML VIAL IV PRN (19:55)
[2017-09-14] MEDS ORDERED: GLUCAGON 1 MG VIAL IM PRN (19:55)
[2017-09-14] MEDS ORDERED: ACETAMINOPHEN 325 MG TABLET PEG PRN (20:06)
[2017-09-14] MEDS: INSULIN LISPRO 100 UNIT/ML SUBCUT SCH (21:46)
[2017-09-14] MEDS: TAMSULOSIN 0.4 MG CAPSULE PO SCH (22:56)
[2017-09-14] MEDS: ROSUVASTATIN 10 MG TABLET PEG SCH (22:56)
[2017-09-14] MEDS: GLIMEPIRIDE 2 MG TABLET PEG SCH (22:57)
[2017-09-14] MEDS: GABAPENTIN 100 MG CAPSULE PEG SCH (22:57)
[2017-09-14] MEDS: APIXABAN 5 MG TABLET PEG SCH (22:57)
[2017-09-14] MEDS: METOPROLOL TARTRATE 50 MG TABLET PEG SCH (22:57)
[2017-09-14] MEDS: URSODIOL 300 MG CAPSULE PEG SCH (22:57)
[2017-09-14] MEDS: VALSARTAN 160 MG TABLET PEG SCH (22:57)
[2017-09-15] MEDS ORDERED: amLODIPine 5 MG TABLET PEG SCH (06:00)
[2017-09-15] MEDS: URSODIOL 300 MG CAPSULE PEG SCH ×2 (06:13→17:50)
[2017-09-15] MEDS: GLIMEPIRIDE 2 MG TABLET PEG SCH ×2 (06:13→17:49)
[2017-09-15] MEDS: ISOSORBIDE DINITRATE 20 MG TABLET PEG SCH (06:13)
[2017-09-15] MEDS: ASPIRIN EC 81 MG TABLET PO SCH (06:13)
[2017-09-15] MEDS: METOPROLOL TARTRATE 50 MG TABLET PEG SCH ×2 (06:14→17:50)
[2017-09-15] MEDS: CYANOCOBALAMIN 500 MCG TABLET PEG SCH (06:14)
[2017-09-15] MEDS: POTASSIUM CHLORIDE 20 MEQ TABLET PO SCH (06:14)
[2017-09-15] MEDS: APIXABAN 5 MG TABLET PEG SCH (06:14)
[2017-09-15] MEDS: [UNRECOGNIZED DRUG - OTHER] SUBCUT SCH (06:16)
[2017-09-15] MEDS: B1 PEG SCH (06:17)
[2017-09-15] MEDS: B3 PEG SCH (06:17)
[2017-09-15] MEDS: CHOLN PEG SCH (06:17)
[2017-09-15] MEDS: IRON PEG SCH (06:17)
[2017-09-15] MEDS: B6 PEG SCH (06:17)
[2017-09-15] MEDS: B2 PEG SCH (06:17)
[2017-09-15] MEDS: METH PEG SCH (06:17)
[2017-09-15] MEDS: B5 PEG SCH (06:17)
[2017-09-15 07:39] LABS: Basophils % 0.3 % (0.0-0.8); Eosinophils # 0.2 10*3/uL (0.0-0.87); Eosinophils % 2.1 % (0.00-10.9); Hematocrit 34.3 VOL% (42.0-52.0); Hemoglobin 11.2 GM/DL (14.0-18.0); Immature Granulocytes % 0.7 %; Immature Granulocytes Absolute 0.05 #; Lymphocytes # 0.8 10*3/uL (1.4-4.0); Mean Corpuscular HGB Conc 32.7 GM/DL (32-36); Mean Corpuscular Hemoglobin 30 PG (27-34); Mean Corpuscular Volume 92.7 FL (87-102); Mean Platelet Volume 10.6 FL (9.6-12.0); Monocytes # 0.7 10*3/uL (0.11-0.8); Monocytes % 9.8 % (1.7-12.7); Neutrophils # 5.9 10*3/uL (1.4-7.4); Neutrophils % 77.1 % (38.7-73.9); Platelet Count 244 T/CUMM (130-400); Red Cell Distribution Width 14.2 % (9.3-17.3); White Blood Count 7.6 T/CUMM (4-12)
[2017-09-15] MEDS ORDERED: FUROSEMIDE 40 MG/4 ML VIAL IV SCH (08:00)
[2017-09-15 08:07] LABS: Calcium 8.9 MG/DL (8.5-10.1); Osmolality,Calculated 282.4 MOS/KG (273-304); Potassium 3.7 MMOL/L (3.5-5.1)
[2017-09-15] MEDS: INSULIN LISPRO 100 UNIT/ML SUBCUT SCH ×4 (08:51→20:32)
[2017-09-15] MEDS ORDERED: metOLazone 5 MG TABLET PO SCH (10:30)
[2017-09-15] MEDS: SPIRONOLACTONE 25 MG TABLET PO SCH (12:38)
[2017-09-15] MEDS: PANTOPRAZOLE 40 MG TABLET PO SCH (12:39)
[2017-09-15] MEDS: TAMSULOSIN 0.4 MG CAPSULE PO SCH (17:49)
[2017-09-15] MEDS: ROSUVASTATIN 10 MG TABLET PEG SCH (17:50)
[2017-09-15] MEDS: VALSARTAN 160 MG TABLET PEG SCH (17:50)
[2017-09-15] MEDS: GABAPENTIN 100 MG CAPSULE PEG SCH (17:52)
[2017-09-15] MEDS: FUROSEMIDE 40 MG/4 ML VIAL IV SCH (18:04)
[2017-09-15] MEDS ORDERED: ENOXAPARIN 40 MG/0.4 ML SYRINGE SUBCUT SCH (21:00)
[2017-09-16] MEDS: FUROSEMIDE 40 MG/4 ML VIAL IV SCH ×2 (01:41→10:10)
[2017-09-16] MEDS: URSODIOL 300 MG CAPSULE PEG SCH ×2 (06:11→18:15)
[2017-09-16] MEDS: B2 PEG SCH (06:11)
[2017-09-16] MEDS: CHOLN PEG SCH (06:11)
[2017-09-16] MEDS: B3 PEG SCH (06:11)
[2017-09-16] MEDS: METH PEG SCH (06:11)
[2017-09-16] MEDS: B5 PEG SCH (06:11)
[2017-09-16] MEDS: B1 PEG SCH (06:11)
[2017-09-16] MEDS: B6 PEG SCH (06:11)
[2017-09-16] MEDS: ISOSORBIDE DINITRATE 20 MG TABLET PEG SCH (06:11)
[2017-09-16] MEDS: IRON PEG SCH (06:11)
[2017-09-16] MEDS: METOPROLOL TARTRATE 50 MG TABLET PEG SCH ×2 (06:12→18:14)
[2017-09-16] MEDS: GLIMEPIRIDE 2 MG TABLET PEG SCH ×2 (06:12→18:16)
[2017-09-16] MEDS: POTASSIUM CHLORIDE 20 MEQ TABLET PO SCH (06:12)
[2017-09-16] MEDS: ASPIRIN EC 81 MG TABLET PO SCH (06:12)
[2017-09-16] MEDS: CYANOCOBALAMIN 500 MCG TABLET PEG SCH (06:12)
[2017-09-16] MEDS: [UNRECOGNIZED DRUG - OTHER] SUBCUT SCH (06:13)
[2017-09-16] MEDS: INSULIN LISPRO 100 UNIT/ML SUBCUT SCH ×4 (07:42→21:39)
[2017-09-16] MEDS ORDERED: DIAZEPAM 5 MG TABLET PO ONE (08:28)
[2017-09-16] MEDS ORDERED: diphenhydrAMINE CAP 25 MG CAPSULE PO ONE (08:28)
[2017-09-16] MEDS: SPIRONOLACTONE 25 MG TABLET PO SCH (09:10)
[2017-09-16] MEDS: PANTOPRAZOLE 40 MG TABLET PO SCH (09:10)
[2017-09-16 10:56] LABS: PT Patient Result 10.5 SECS
[2017-09-16 11:17] LABS: Calcium 8.9 MG/DL (8.5-10.1); Osmolality,Calculated 285.2 MOS/KG (273-304); Potassium 3.3 MMOL/L (3.5-5.1)
[2017-09-16] MEDS ORDERED: POTASSIUM CHLORIDE 20 MEQ/15 ML UDCUP PER TUBE PRN (11:31)
[2017-09-16] MEDS ORDERED: SODIUM CHLORIDE 0.9% 1,000 ML IV SCH (12:00)
[2017-09-16] MEDS ORDERED: HEPARIN/NACL 0.9% 2 UNITS/ML 1,000 ML IV ONE (14:32)
[2017-09-16] MEDS ORDERED: MIDAZOLAM 2 MG/2 ML VIAL ONE ×2 (14:40→14:48)
[2017-09-16] MEDS ORDERED: fentaNYL 100 MCG/2 ML VIAL ONE (14:41)
[2017-09-16] MEDS: ROSUVASTATIN 10 MG TABLET PEG SCH (18:14)
[2017-09-16] MEDS: LANSOPRAZOLE ODT 30 MG TABLET PEG SCH (18:15)
[2017-09-16] MEDS: TAMSULOSIN 0.4 MG CAPSULE PO SCH (18:15)
[2017-09-16] MEDS: GABAPENTIN 100 MG CAPSULE PEG SCH (18:16)
[2017-09-16] MEDS: VALSARTAN 160 MG TABLET PEG SCH (18:16)
[2017-09-17 04:38] LABS: Basophils % 0.2 % (0.0-0.8); Eosinophils # 0.1 10*3/uL (0.0-0.87); Eosinophils % 1.4 % (0.00-10.9); Hemoglobin 10.6 GM/DL (14.0-18.0); Immature Granulocytes % 0.3 %; Immature Granulocytes Absolute 0.03 #; Lymphocytes % 10.3 % (21.2-54.2); Mean Corpuscular HGB Conc 33.1 GM/DL (32-36); Mean Corpuscular Hemoglobin 30 PG (27-34); Mean Corpuscular Volume 91.2 FL (87-102); Mean Platelet Volume 10.9 FL (9.6-12.0); Monocytes # 0.9 10*3/uL (0.11-0.8); Monocytes % 9.5 % (1.7-12.7); Neutrophils # 7.5 10*3/uL (1.4-7.4); Neutrophils % 78.3 % (38.7-73.9); Platelet Count 218 T/CUMM (130-400); Red Blood Count 3.51 MC/CUMM (3.8-5.5); Red Cell Distribution Width 13.8 % (9.3-17.3); White Blood Count 9.6 T/CUMM (4-12)
[2017-09-17 05:15] LABS: Calcium 8.7 MG/DL (8.5-10.1); Osmolality,Calculated 283.8 MOS/KG (273-304); Potassium 3.4 MMOL/L (3.5-5.1)
[2017-09-17] MEDS: B6 PEG SCH (05:51)
[2017-09-17] MEDS: B2 PEG SCH (05:51)
[2017-09-17] MEDS: CHOLN PEG SCH (05:51)
[2017-09-17] MEDS: B5 PEG SCH (05:51)
[2017-09-17] MEDS: IRON PEG SCH (05:51)
[2017-09-17] MEDS: METH PEG SCH (05:51)
[2017-09-17] MEDS: B3 PEG SCH (05:51)
[2017-09-17] MEDS: B1 PEG SCH (05:51)
[2017-09-17] MEDS: METOPROLOL TARTRATE 50 MG TABLET PEG SCH ×2 (05:52→18:39)
[2017-09-17] MEDS: URSODIOL 300 MG CAPSULE PEG SCH ×2 (05:52→18:39)
[2017-09-17] MEDS: ASPIRIN EC 81 MG TABLET PO SCH (05:52)
[2017-09-17] MEDS: ISOSORBIDE DINITRATE 20 MG TABLET PEG SCH (05:52)
[2017-09-17] MEDS: POTASSIUM CHLORIDE 20 MEQ TABLET PO SCH (05:52)
[2017-09-17] MEDS: GLIMEPIRIDE 2 MG TABLET PEG SCH ×2 (05:52→18:39)
[2017-09-17] MEDS: [UNRECOGNIZED DRUG - OTHER] SUBCUT SCH (05:53)
[2017-09-17] MEDS: CYANOCOBALAMIN 500 MCG TABLET PEG SCH (05:53)
[2017-09-17] MEDS ORDERED: POTASSIUM CHLORIDE 20 MEQ TABLET PO ONE (07:00)
[2017-09-17] MEDS: INSULIN LISPRO 100 UNIT/ML SUBCUT SCH ×4 (07:21→20:48)
[2017-09-17] MEDS ORDERED: TORSEMIDE 20 MG TABLET PO SCH (09:00)
[2017-09-17] MEDS: LANSOPRAZOLE ODT 30 MG TABLET PEG SCH ×2 (09:08→18:40)
[2017-09-17] MEDS: VALSARTAN 160 MG TABLET PEG SCH (18:39)
[2017-09-17] MEDS: TAMSULOSIN 0.4 MG CAPSULE PO SCH (18:39)
[2017-09-17] MEDS: ROSUVASTATIN 10 MG TABLET PEG SCH (18:39)
[2017-09-17] MEDS: GABAPENTIN 100 MG CAPSULE PEG SCH (18:40)
[2017-09-18] MEDS: CYANOCOBALAMIN 500 MCG TABLET PEG SCH (06:09)
[2017-09-18] MEDS: URSODIOL 300 MG CAPSULE PEG SCH ×2 (06:09→18:29)
[2017-09-18] MEDS: ISOSORBIDE DINITRATE 20 MG TABLET PEG SCH (06:09)
[2017-09-18] MEDS: GLIMEPIRIDE 2 MG TABLET PEG SCH ×2 (06:09→18:29)
[2017-09-18] MEDS: TORSEMIDE 20 MG TABLET PO SCH (06:10)
[2017-09-18] MEDS: ASPIRIN EC 81 MG TABLET PO SCH (06:10)
[2017-09-18] MEDS: METOPROLOL TARTRATE 50 MG TABLET PEG SCH ×2 (06:10→18:29)
[2017-09-18] MEDS: POTASSIUM CHLORIDE 20 MEQ TABLET PO SCH (06:11)
[2017-09-18] MEDS: [UNRECOGNIZED DRUG - OTHER] SUBCUT SCH (06:11)
[2017-09-18] MEDS: METH PEG SCH (06:12)
[2017-09-18] MEDS: B1 PEG SCH (06:12)
[2017-09-18] MEDS: B2 PEG SCH (06:12)
[2017-09-18] MEDS: B3 PEG SCH (06:12)
[2017-09-18] MEDS: IRON PEG SCH (06:12)
[2017-09-18] MEDS: B5 PEG SCH (06:12)
[2017-09-18] MEDS: CHOLN PEG SCH (06:12)
[2017-09-18] MEDS: B6 PEG SCH (06:12)
[2017-09-18] MEDS: INSULIN LISPRO 100 UNIT/ML SUBCUT SCH ×4 (07:30→20:25)
[2017-09-18] MEDS: ROSUVASTATIN 10 MG TABLET PEG SCH (18:28)
[2017-09-18] MEDS: GABAPENTIN 100 MG CAPSULE PEG SCH (18:28)
[2017-09-18] MEDS: TAMSULOSIN 0.4 MG CAPSULE PO SCH (18:29)
[2017-09-18] MEDS: LANSOPRAZOLE ODT 30 MG TABLET PEG SCH (18:29)
[2017-09-18] MEDS: VALSARTAN 160 MG TABLET PEG SCH (18:29)
[2017-09-19] MEDS: ISOSORBIDE DINITRATE 20 MG TABLET PEG SCH (06:11)
[2017-09-19] MEDS: METOPROLOL TARTRATE 50 MG TABLET PEG SCH ×2 (06:11→18:19)
[2017-09-19] MEDS: ASPIRIN EC 81 MG TABLET PO SCH (06:11)
[2017-09-19] MEDS: TORSEMIDE 20 MG TABLET PO SCH (06:12)
[2017-09-19] MEDS: GLIMEPIRIDE 2 MG TABLET PEG SCH ×2 (06:12→18:19)
[2017-09-19] MEDS: POTASSIUM CHLORIDE 20 MEQ TABLET PO SCH (06:12)
[2017-09-19] MEDS: URSODIOL 300 MG CAPSULE PEG SCH ×2 (06:12→18:19)
[2017-09-19] MEDS: CYANOCOBALAMIN 500 MCG TABLET PEG SCH (06:12)
[2017-09-19] MEDS: B5 PEG SCH (06:13)
[2017-09-19] MEDS: B3 PEG SCH (06:13)
[2017-09-19] MEDS: B2 PEG SCH (06:13)
[2017-09-19] MEDS: CHOLN PEG SCH (06:13)
[2017-09-19] MEDS: B6 PEG SCH (06:13)
[2017-09-19] MEDS: B1 PEG SCH (06:13)
[2017-09-19] MEDS: [UNRECOGNIZED DRUG - OTHER] SUBCUT SCH (06:13)
[2017-09-19] MEDS: IRON PEG SCH (06:13)
[2017-09-19] MEDS: METH PEG SCH (06:13)
[2017-09-19] MEDS: INSULIN LISPRO 100 UNIT/ML SUBCUT SCH ×4 (07:46→20:21)
[2017-09-19] MEDS: ALBUTEROL/IPRATROPIUM 3 ML NEB RESP TX SCH ×2 (13:04→19:19)
[2017-09-19] MEDS: GABAPENTIN 100 MG CAPSULE PEG SCH (18:19)
[2017-09-19] MEDS: VALSARTAN 160 MG TABLET PEG SCH (18:19)
[2017-09-19] MEDS: ROSUVASTATIN 10 MG TABLET PEG SCH (18:19)
[2017-09-19] MEDS: LANSOPRAZOLE ODT 30 MG TABLET PEG SCH (18:19)
[2017-09-19] MEDS: TAMSULOSIN 0.4 MG CAPSULE PO SCH (18:19)
[2017-09-19] MEDS ORDERED: hydrALAZINE 20 MG/1 ML VIAL IV PRN (19:46)
[2017-09-19] MEDS: amLODIPine 5 MG TABLET PO SCH (20:13)
[2017-09-20] MEDS: ALBUTEROL/IPRATROPIUM 3 ML NEB RESP TX SCH ×4 (01:12→20:00)
[2017-09-20 05:45] LABS: Calcium 8.5 MG/DL (8.5-10.1); Osmolality,Calculated 287.7 MOS/KG (273-304); Potassium 3.4 MMOL/L (3.5-5.1)
[2017-09-20] MEDS: TORSEMIDE 20 MG TABLET PO SCH (05:55)
[2017-09-20] MEDS: ISOSORBIDE DINITRATE 20 MG TABLET PEG SCH (05:55)
[2017-09-20] MEDS: amLODIPine 5 MG TABLET PO SCH (05:55)
[2017-09-20] MEDS: GLIMEPIRIDE 2 MG TABLET PEG SCH ×2 (05:55→17:25)
[2017-09-20] MEDS: URSODIOL 300 MG CAPSULE PEG SCH ×2 (05:56→17:26)
[2017-09-20] MEDS: CYANOCOBALAMIN 500 MCG TABLET PEG SCH (05:56)
[2017-09-20] MEDS: METOPROLOL TARTRATE 50 MG TABLET PEG SCH ×2 (05:56→17:26)
[2017-09-20] MEDS: POTASSIUM CHLORIDE 20 MEQ TABLET PO SCH (05:56)
[2017-09-20] MEDS: ASPIRIN EC 81 MG TABLET PO SCH (05:56)
[2017-09-20] MEDS: [UNRECOGNIZED DRUG - OTHER] SUBCUT SCH (05:57)
[2017-09-20] MEDS: B6 PEG SCH (06:00)
[2017-09-20] MEDS: B3 PEG SCH (06:00)
[2017-09-20] MEDS: B1 PEG SCH (06:00)
[2017-09-20] MEDS: CHOLN PEG SCH (06:00)
[2017-09-20] MEDS: B2 PEG SCH (06:00)
[2017-09-20] MEDS: METH PEG SCH (06:00)
[2017-09-20] MEDS: B5 PEG SCH (06:00)
[2017-09-20] MEDS: IRON PEG SCH (06:00)
[2017-09-20] MEDS: INSULIN LISPRO 100 UNIT/ML SUBCUT SCH ×3 (11:47→21:49)
[2017-09-20] MEDS: SPIRONOLACTONE 25 MG TABLET PO SCH (12:44)
[2017-09-20] MEDS: MONTELUKAST 10 MG TABLET PO SCH (12:44)
[2017-09-20] MEDS ORDERED: TORSEMIDE 20 MG TABLET PO SCH (14:58)
[2017-09-20] MEDS ORDERED: TORSEMIDE 20 MG TABLET PO ONE (14:58)
[2017-09-20] MEDS: ROSUVASTATIN 10 MG TABLET PEG SCH (17:24)
[2017-09-20] MEDS: GABAPENTIN 100 MG CAPSULE PEG SCH (17:25)
[2017-09-20] MEDS: LANSOPRAZOLE ODT 30 MG TABLET PEG SCH (17:26)
[2017-09-20] MEDS: TAMSULOSIN 0.4 MG CAPSULE PO SCH (17:26)
[2017-09-21] MEDS: ALBUTEROL/IPRATROPIUM 3 ML NEB RESP TX SCH ×3 (01:24→13:33)
[2017-09-21 05:14] LABS: Basophils % 0.4 % (0.0-0.8); Eosinophils # 0.2 10*3/uL (0.0-0.87); Eosinophils % 2.3 % (0.00-10.9); Hematocrit 32.9 VOL% (42.0-52.0); Hemoglobin 11.1 GM/DL (14.0-18.0); Immature Granulocytes % 0.5 %; Immature Granulocytes Absolute 0.04 #; Mean Corpuscular HGB Conc 33.7 GM/DL (32-36); Mean Corpuscular Hemoglobin 30 PG (27-34); Mean Corpuscular Volume 88.9 FL (87-102); Monocytes % 12.7 % (1.7-12.7); Neutrophils # 5.3 10*3/uL (1.4-7.4); Neutrophils % 71.1 % (38.7-73.9); Platelet Count 230 T/CUMM (130-400); Red Cell Distribution Width 13.4 % (9.3-17.3); White Blood Count 7.5 T/CUMM (4-12)
[2017-09-21 05:37] LABS: Calcium 8.9 MG/DL (8.5-10.1); Osmolality,Calculated 285.3 MOS/KG (273-304); Potassium 3.9 MMOL/L (3.5-5.1)
[2017-09-21] MEDS: URSODIOL 300 MG CAPSULE PEG SCH (05:46)
[2017-09-21] MEDS: POTASSIUM CHLORIDE 20 MEQ TABLET PO SCH (05:47)
[2017-09-21] MEDS: ASPIRIN EC 81 MG TABLET PO SCH (05:47)
[2017-09-21] MEDS: GLIMEPIRIDE 2 MG TABLET PEG SCH (05:47)
[2017-09-21] MEDS: ISOSORBIDE DINITRATE 20 MG TABLET PEG SCH (05:47)
[2017-09-21] MEDS: METOPROLOL TARTRATE 50 MG TABLET PEG SCH (05:48)
[2017-09-21] MEDS: CYANOCOBALAMIN 500 MCG TABLET PEG SCH (05:48)
[2017-09-21] MEDS: IRON PEG SCH (05:49)
[2017-09-21] MEDS: B2 PEG SCH (05:49)
[2017-09-21] MEDS: METH PEG SCH (05:49)
[2017-09-21] MEDS: B5 PEG SCH (05:49)
[2017-09-21] MEDS: B1 PEG SCH (05:49)
[2017-09-21] MEDS: B3 PEG SCH (05:49)
[2017-09-21] MEDS: B6 PEG SCH (05:49)
[2017-09-21] MEDS: CHOLN PEG SCH (05:49)
[2017-09-21] MEDS: [UNRECOGNIZED DRUG - OTHER] SUBCUT SCH (05:51)
[2017-09-21] MEDS ORDERED: hydrALAZINE 25 MG TABLET PO SCH (06:00)
[2017-09-21] MEDS ORDERED: APIXABAN 5 MG TABLET PO SCH (06:00)
[2017-09-21] MEDS ORDERED: FUROSEMIDE 40 MG/4 ML VIAL IV ONE (08:38)
[2017-09-21] MEDS: INSULIN LISPRO 100 UNIT/ML SUBCUT SCH ×2 (08:45→12:39)
[2017-09-21] MEDS: MONTELUKAST 10 MG TABLET PO SCH (09:30)
[2017-09-21] MEDS: SPIRONOLACTONE 25 MG TABLET PO SCH (09:30)
[2017-09-21 12:50] VITALS: BP 154/66
== END 2017-09-21 17:00 | disposition home health service (06) | DRG 287 ==
LOC: N.ED 16:25 → SUATTDRO 19:20 → N.EDINP 19:20 → N.4E 20:18
PROVIDERS: ADMIT Internal Medicine; ATTEND Internal Medicine

== ENCOUNTER 2018-08-09 10:03 | Inpatient (IN) ==
[2018-08-09 12:23] LABS: Basophils % 0.2 % (0.0-0.8); Eosinophils % 0.2 % (0.00-10.9); Hematocrit 37.5 VOL% (42.0-52.0); Hemoglobin 11.5 GM/DL (14.0-18.0); Immature Granulocytes % 1.1 %; Lymphocytes # 1.1 10*3/uL (1.4-4.0); Lymphocytes % 12.1 % (21.2-54.2); Mean Corpuscular HGB Conc 30.7 GM/DL (32-36); Mean Corpuscular Hemoglobin 28 PG (27-34); Mean Corpuscular Volume 90.8 FL (87-102); Mean Platelet Volume 10.6 FL (9.6-12.0); Monocytes # 0.7 10*3/uL (0.11-0.8); Monocytes % 7.4 % (1.7-12.7); Neutrophils # 7.3 10*3/uL (1.4-7.4); Platelet Count 208 T/CUMM (130-400); Red Blood Count 4.13 MC/CUMM (3.8-5.5); Red Cell Distribution Width 13.5 % (9.3-17.3); White Blood Count 9.3 T/CUMM (4-12)
[2018-08-09 12:34] LABS: INR 1.1; PT Patient Result 11.4 SECS; Partial Thromboplastin Time 27.5 SECS (0-40)
[2018-08-09 12:38] LABS: Bilirubin,Total 0.6 MG/DL (0.2-1.0); Calcium 8.7 MG/DL (8.5-10.1); Potassium 4.3 MMOL/L (3.5-5.1); Total Protein 6.4 G/DL (6.4-8.3)
[2018-08-09] MEDS ORDERED: ALBUTEROL/IPRATROPIUM 3 ML NEB RESP TX STA ×2 (12:42→15:01)
[2018-08-09] MEDS ORDERED: methylPREDNISolone SOD SUC 125 MG/2 ML VIAL IV STA ×2 (13:05→13:06)
[2018-08-09] MEDS ORDERED: SODIUM CHLORIDE 0.9% 500 ML IV STA (13:06)
[2018-08-09 13:09] LABS: Apearance,Urine CLEAR (Clear); Bilirubin,Urine Negative (Negative); Blood, Urine Negative (Negative); Glucose,Urine (UA) Negative (Negative); Ketones,Urine Negative (Negative); Nitrite,Urine Negative (Negative); Protein,Urine 100 MG/DL; RBC,Urine <1 /HPF (0-4); Squamous Epithelial Cell,Urine Occasional /HPF (0-10); Urine Color Yellow (Yellow); Urine Urobilinogen < 2.0 EU/DL (0.2-1.0); WBC,Urine <1 /HPF (0-6)
[2018-08-09 13:11] LABS: CKMB % 2.9 %; Troponin I 0.037 NG/ML (0.00-0.045)
[2018-08-09] MEDS ORDERED: ALBUTEROL/IPRATROPIUM 3 ML NEB RESP TX PRN (14:41)
[2018-08-09] MEDS ORDERED: ONDANSETRON 4 MG/2 ML VIAL IV PRN (15:01)
[2018-08-09] MEDS ORDERED: guaiFENesin/DM ER 600-30 MG TABLET PO PRN (15:01)
[2018-08-09] MEDS ORDERED: ACETAMINOPHEN 325 MG TABLET PO PRN (15:01)
[2018-08-09] MEDS ORDERED: DOCUSATE SODIUM 100 MG CAPSULE PO PRN (15:01)
[2018-08-09] MEDS ORDERED: NITROGLYCERIN SL 0.4 MG TABLET SL PRN (15:01)
[2018-08-09] MEDS ORDERED: POLYETHYLENE GLYCOL POWDER 17 GM PACK PEG PRN (15:01)
[2018-08-09] MEDS ORDERED: traZODone 50 MG TABLET PO PRN (15:01)
[2018-08-09] MEDS: LACTULOSE 20 GM/30 ML UDCUP PO SCH ×3 (16:23→22:34)
[2018-08-09] MEDS: methylPREDNISolone SOD SUC 125 MG/2 ML VIAL IV SCH ×2 (16:23→23:26)
[2018-08-09] MEDS: LEVOFLOXACIN INJ 750 MG in PREMIX 1 EACH IV SCH (16:25)
[2018-08-09] MEDS ORDERED: APIXABAN 5 MG TABLET PEG SCH (18:00)
[2018-08-09] MEDS ORDERED: METOPROLOL TARTRATE 50 MG TABLET PEG SCH (18:00)
[2018-08-09] MEDS ORDERED: GABAPENTIN 100 MG CAPSULE PEG SCH (18:00)
[2018-08-09] MEDS ORDERED: hydrALAZINE 25 MG TABLET PO SCH (18:00)
[2018-08-09] MEDS ORDERED: GLIMEPIRIDE 2 MG TABLET PEG SCH (18:00)
[2018-08-09] MEDS ORDERED: URSODIOL 300 MG CAPSULE PEG SCH (18:00)
[2018-08-09] MEDS: URSODIOL 300 MG CAPSULE PEG SCH (21:06)
[2018-08-09] MEDS: METOPROLOL TARTRATE 50 MG TABLET PEG SCH (21:06)
[2018-08-09] MEDS: GLIMEPIRIDE 2 MG TABLET PEG SCH (21:06)
[2018-08-09] MEDS: APIXABAN 5 MG TABLET PEG SCH (21:06)
[2018-08-09] MEDS: GABAPENTIN 100 MG CAPSULE PEG SCH (21:06)
[2018-08-09] MEDS: ROSUVASTATIN 10 MG TABLET PEG SCH (21:06)
[2018-08-09] MEDS: hydrALAZINE 25 MG TABLET PO SCH (21:06)
[2018-08-10] MEDS: LACTULOSE 20 GM/30 ML UDCUP PO SCH ×6 (03:14→23:28)
[2018-08-10 04:46] LABS: Basophils % 0.2 % (0.0-0.8); Hematocrit 35.9 VOL% (42.0-52.0); Immature Granulocytes % 0.6 %; Immature Granulocytes Absolute 0.03 #; Lymphocytes # 0.3 10*3/uL (1.4-4.0); Lymphocytes % 6.4 % (21.2-54.2); Mean Corpuscular HGB Conc 30.6 GM/DL (32-36); Mean Corpuscular Hemoglobin 28 PG (27-34); Mean Corpuscular Volume 91.1 FL (87-102); Monocytes # 0.1 10*3/uL (0.11-0.8); Monocytes % 1.1 % (1.7-12.7); Neutrophils # 4.9 10*3/uL (1.4-7.4); Neutrophils % 91.7 % (38.7-73.9); Platelet Count 170 T/CUMM (130-400); Red Blood Count 3.94 MC/CUMM (3.8-5.5); Red Cell Distribution Width 13.3 % (9.3-17.3); White Blood Count 5.4 T/CUMM (4-12)
[2018-08-10 04:58] LABS: Albumin 2.6 G/DL (3.4-5.0); Bilirubin,Total 0.6 MG/DL (0.2-1.0); Calcium 8.4 MG/DL (8.5-10.1); Potassium 4.4 MMOL/L (3.5-5.1); Risk Ratio 2.4; VLDL CHOLESTEROL 10.4 MG/DL
[2018-08-10 05:11] LABS: Band Neutrophils 1 % (0-10); Hypochromasia 1+; Lymphocytes 4 % (20-55); Myelocytes 1 %; Nucleated Red Blood Cells 1 (0-5); Ovalocytes Slight; Platelet Estimate Adequate; Segmented Neutrophils 94 % (50-85); Total Cells Counted 100
[2018-08-10] MEDS: methylPREDNISolone SOD SUC 125 MG/2 ML VIAL IV SCH ×3 (06:14→23:29)
[2018-08-10] MEDS ORDERED: MONTELUKAST 10 MG TABLET PO SCH (09:00)
[2018-08-10] MEDS ORDERED: metOLazone 5 MG TABLET PO ONE (09:00)
[2018-08-10] MEDS ORDERED: NON-FORMULARY MEDICATION (Cyanocobalamin (Vitamin B-12) [Vitamin B-12] 5,000 MCG) PEG SCH (09:00)
[2018-08-10] MEDS: PANTOPRAZOLE 40 MG TABLET PO SCH (09:36)
[2018-08-10] MEDS: GABAPENTIN 100 MG CAPSULE PEG SCH ×2 (09:36→21:23)
[2018-08-10] MEDS: SPIRONOLACTONE 25 MG TABLET PO SCH (09:36)
[2018-08-10] MEDS: ISOSORBIDE DINITRATE 20 MG TABLET PEG SCH (09:36)
[2018-08-10] MEDS: GLIMEPIRIDE 2 MG TABLET PEG SCH ×2 (09:36→21:23)
[2018-08-10] MEDS: URSODIOL 300 MG CAPSULE PEG SCH ×2 (09:37→21:23)
[2018-08-10] MEDS: hydrALAZINE 25 MG TABLET PO SCH ×2 (09:37→21:24)
[2018-08-10] MEDS: METOPROLOL TARTRATE 50 MG TABLET PEG SCH ×2 (09:37→21:22)
[2018-08-10] MEDS: APIXABAN 5 MG TABLET PEG SCH ×2 (09:37→21:23)
[2018-08-10] MEDS: ASPIRIN EC 81 MG TABLET PO SCH (09:42)
[2018-08-10] MEDS: FUROSEMIDE 40 MG/4 ML VIAL IV SCH ×2 (09:55→15:54)
[2018-08-10] MEDS: ALBUTEROL/IPRATROPIUM 3 ML NEB RESP TX SCH ×3 (12:15→19:14)
[2018-08-10] MEDS: BENZONATATE 100 MG CAPSULE PO SCH ×4 (12:32→21:45)
[2018-08-10] MEDS: LEVOFLOXACIN INJ 750 MG in PREMIX 1 EACH IV SCH (15:51)
[2018-08-10] MEDS ORDERED: DEXTROSE 50% 25 GM/50 ML SYRINGE IV PRN (16:51)
[2018-08-10] MEDS ORDERED: GLUCAGON 1 MG VIAL IM PRN (16:51)
[2018-08-10] MEDS ORDERED: ALUMINUM/MAGNES/SIMETH MAX STR 30 ML UDCUP PO PRN (19:01)
[2018-08-10] MEDS: ROSUVASTATIN 10 MG TABLET PEG SCH (21:22)
[2018-08-10] MEDS: MONTELUKAST 10 MG TABLET PO SCH (21:23)
[2018-08-10] MEDS: INSULIN LISPRO 100 UNIT/ML SUBCUT SCH (21:26)
[2018-08-11] MEDS: ALBUTEROL/IPRATROPIUM 3 ML NEB RESP TX SCH ×4 (00:24→20:05)
[2018-08-11] MEDS: LACTULOSE 20 GM/30 ML UDCUP PO SCH ×6 (05:16→23:03)
[2018-08-11 05:27] LABS: Basophils % 0.2 % (0.0-0.8); Hematocrit 35.9 VOL% (42.0-52.0); Hemoglobin 11.8 GM/DL (14.0-18.0); Immature Granulocytes % 1.9 %; Immature Granulocytes Absolute 0.23 #; Lymphocytes # 0.4 10*3/uL (1.4-4.0); Lymphocytes % 3.5 % (21.2-54.2); Mean Corpuscular HGB Conc 32.9 GM/DL (32-36); Mean Corpuscular Hemoglobin 29 PG (27-34); Mean Corpuscular Volume 88.2 FL (87-102); Mean Platelet Volume 10.9 FL (9.6-12.0); Monocytes # 0.2 10*3/uL (0.11-0.8); Monocytes % 1.8 % (1.7-12.7); Neutrophils # 11.4 10*3/uL (1.4-7.4); Neutrophils % 92.6 % (38.7-73.9); Platelet Count 199 T/CUMM (130-400); Red Blood Count 4.07 MC/CUMM (3.8-5.5); Red Cell Distribution Width 13.2 % (9.3-17.3); White Blood Count 12.3 T/CUMM (4-12)
[2018-08-11 05:38] LABS: Osmolality,Calculated 285.4 MOS/KG (273-304); Potassium 3.9 MMOL/L (3.5-5.1)
[2018-08-11 05:55] LABS: Band Neutrophils 2 % (0-10); Lymphocytes 7 % (20-55); Segmented Neutrophils 88 % (50-85); Total Cells Counted 100
[2018-08-11 05:56] LABS: Hypochromasia 1+; Microcytosis Slight; Platelet Estimate Adequate
[2018-08-11] MEDS: INSULIN GLARGINE 100 UNIT/ML SUBCUT SCH (06:49)
[2018-08-11] MEDS: INSULIN LISPRO 100 UNIT/ML SUBCUT SCH ×4 (09:07→21:00)
[2018-08-11] MEDS: FUROSEMIDE 40 MG/4 ML VIAL IV SCH ×2 (09:18→16:25)
[2018-08-11] MEDS: methylPREDNISolone SOD SUC 125 MG/2 ML VIAL IV SCH ×3 (09:18→23:00)
[2018-08-11] MEDS: BENZONATATE 100 MG CAPSULE PO SCH ×3 (09:18→21:00)
[2018-08-11] MEDS: ASPIRIN EC 81 MG TABLET PO SCH (09:31)
[2018-08-11] MEDS: CHOLECALCIFEROL 1,000 UNIT TABLET PEG SCH (09:31)
[2018-08-11] MEDS: CYANOCOBALAMIN 500 MCG TABLET PEG SCH (09:31)
[2018-08-11] MEDS: GABAPENTIN 100 MG CAPSULE PEG SCH ×2 (09:31→20:59)
[2018-08-11] MEDS: METOPROLOL TARTRATE 50 MG TABLET PEG SCH ×2 (09:31→21:00)
[2018-08-11] MEDS: ISOSORBIDE DINITRATE 20 MG TABLET PEG SCH (09:31)
[2018-08-11] MEDS: PANTOPRAZOLE 40 MG TABLET PO SCH (09:31)
[2018-08-11] MEDS: URSODIOL 300 MG CAPSULE PEG SCH ×2 (09:31→20:59)
[2018-08-11] MEDS: hydrALAZINE 25 MG TABLET PO SCH ×2 (09:31→20:59)
[2018-08-11] MEDS: MONTELUKAST 10 MG TABLET PO SCH ×2 (09:31→20:59)
[2018-08-11] MEDS: APIXABAN 5 MG TABLET PEG SCH ×2 (09:31→20:59)
[2018-08-11] MEDS: SPIRONOLACTONE 25 MG TABLET PO SCH (09:32)
[2018-08-11] MEDS: GLIMEPIRIDE 2 MG TABLET PEG SCH ×2 (09:32→20:59)
[2018-08-11] MEDS: LEVOFLOXACIN INJ 750 MG in PREMIX 1 EACH IV SCH (16:25)
[2018-08-11] MEDS: ROSUVASTATIN 10 MG TABLET PEG SCH (20:59)
[2018-08-11 22:07] LABS: Apearance,Urine CLEAR (Clear); Bilirubin,Urine Negative (Negative); Blood, Urine Small mg/dL (Negative); Glucose,Urine (UA) >=500 mg/dL (Negative); Hyaline Casts,Urine 1 /LPF (0-3); Ketones,Urine Negative (Negative); Mucus,Urine Occasional /LPF (Occasional); Nitrite,Urine Negative (Negative); Protein,Urine 30 MG/DL; RBC,Urine 2 /HPF (0-4); Urine Color Colorless (Yellow); Urine Specific Gravity 1.005 (1.001-1.035); Urine Urobilinogen < 2.0 EU/DL (0.2-1.0)
[2018-08-12] MEDS: ALBUTEROL/IPRATROPIUM 3 ML NEB RESP TX SCH ×5 (00:13→23:52)
[2018-08-12] MEDS: LACTULOSE 20 GM/30 ML UDCUP PO SCH ×6 (02:59→23:05)
[2018-08-12 04:53] LABS: Basophils % 0.1 % (0.0-0.8); Hematocrit 38.1 VOL% (42.0-52.0); Hemoglobin 12.2 GM/DL (14.0-18.0); Immature Granulocytes % 0.9 %; Immature Granulocytes Absolute 0.12 #; Lymphocytes # 0.5 10*3/uL (1.4-4.0); Lymphocytes % 3.4 % (21.2-54.2); Mean Corpuscular Hemoglobin 28 PG (27-34); Mean Corpuscular Volume 87.6 FL (87-102); Mean Platelet Volume 11.1 FL (9.6-12.0); Monocytes # 0.3 10*3/uL (0.11-0.8); Monocytes % 2.4 % (1.7-12.7); Neutrophils # 13.1 10*3/uL (1.4-7.4); Neutrophils % 93.2 % (38.7-73.9); Platelet Count 241 T/CUMM (130-400); Red Blood Count 4.35 MC/CUMM (3.8-5.5); Red Cell Distribution Width 13.2 % (9.3-17.3)
[2018-08-12 05:00] LABS: Calcium 9.3 MG/DL (8.5-10.1); Osmolality,Calculated 288.2 MOS/KG (273-304)
[2018-08-12 05:36] LABS: Hypochromasia 1+; Lymphocytes 2 % (20-55); Microcytosis Slight; Platelet Estimate Adequate; Segmented Neutrophils 98 % (50-85); Total Cells Counted 100
[2018-08-12] MEDS: INSULIN GLARGINE 100 UNIT/ML SUBCUT SCH (06:09)
[2018-08-12] MEDS: methylPREDNISolone SOD SUC 125 MG/2 ML VIAL IV SCH ×3 (06:21→22:56)
[2018-08-12] MEDS: INSULIN LISPRO 100 UNIT/ML SUBCUT SCH ×4 (07:19→21:59)
[2018-08-12] MEDS ORDERED: metOLazone 5 MG TABLET PO ONE (09:00)
[2018-08-12] MEDS: ISOSORBIDE DINITRATE 20 MG TABLET PEG SCH (09:28)
[2018-08-12] MEDS: CHOLECALCIFEROL 1,000 UNIT TABLET PEG SCH (09:28)
[2018-08-12] MEDS: GLIMEPIRIDE 2 MG TABLET PEG SCH ×2 (09:28→21:26)
[2018-08-12] MEDS: MONTELUKAST 10 MG TABLET PO SCH ×2 (09:28→21:22)
[2018-08-12] MEDS: CYANOCOBALAMIN 500 MCG TABLET PEG SCH (09:28)
[2018-08-12] MEDS: PANTOPRAZOLE 40 MG TABLET PO SCH (09:29)
[2018-08-12] MEDS: ASPIRIN EC 81 MG TABLET PO SCH (09:29)
[2018-08-12] MEDS: APIXABAN 5 MG TABLET PEG SCH ×2 (09:29→21:25)
[2018-08-12] MEDS: SPIRONOLACTONE 25 MG TABLET PO SCH (09:29)
[2018-08-12] MEDS: hydrALAZINE 25 MG TABLET PO SCH ×2 (09:29→21:25)
[2018-08-12] MEDS: POTASSIUM CHLORIDE 20 MEQ TABLET PO SCH ×4 (09:29→19:56)
[2018-08-12] MEDS: GABAPENTIN 100 MG CAPSULE PEG SCH ×2 (09:29→21:25)
[2018-08-12] MEDS: METOPROLOL TARTRATE 50 MG TABLET PEG SCH ×2 (09:29→21:25)
[2018-08-12] MEDS: URSODIOL 300 MG CAPSULE PEG SCH ×2 (09:29→21:26)
[2018-08-12] MEDS: BENZONATATE 100 MG CAPSULE PO SCH ×3 (09:30→21:22)
[2018-08-12] MEDS: DORNASE ALFA 2.5 MG/2.5 ML VIAL RESP TX SCH ×2 (13:15→19:16)
[2018-08-12] MEDS: LEVOFLOXACIN INJ 750 MG in PREMIX 1 EACH IV SCH (15:13)
[2018-08-12] MEDS: ROSUVASTATIN 10 MG TABLET PEG SCH (21:26)
[2018-08-13] MEDS: LACTULOSE 20 GM/30 ML UDCUP PO SCH ×6 (02:31→22:29)
[2018-08-13 05:23] LABS: Calcium 9.2 MG/DL (8.5-10.1); Osmolality,Calculated 288.2 MOS/KG (273-304); Potassium 4.1 MMOL/L (3.5-5.1)
[2018-08-13] MEDS: INSULIN GLARGINE 100 UNIT/ML SUBCUT SCH (06:15)
[2018-08-13] MEDS: DORNASE ALFA 2.5 MG/2.5 ML VIAL RESP TX SCH ×2 (07:02→20:00)
[2018-08-13] MEDS: ALBUTEROL/IPRATROPIUM 3 ML NEB RESP TX SCH ×3 (07:02→19:52)
[2018-08-13] MEDS: INSULIN LISPRO 100 UNIT/ML SUBCUT SCH ×4 (08:36→20:51)
[2018-08-13] MEDS: URSODIOL 300 MG CAPSULE PEG SCH ×2 (08:38→20:49)
[2018-08-13] MEDS: ISOSORBIDE DINITRATE 20 MG TABLET PEG SCH (08:39)
[2018-08-13] MEDS: METOPROLOL TARTRATE 50 MG TABLET PEG SCH ×2 (08:39→20:51)
[2018-08-13] MEDS: MONTELUKAST 10 MG TABLET PO SCH ×2 (08:39→20:49)
[2018-08-13] MEDS: PANTOPRAZOLE 40 MG TABLET PO SCH (08:39)
[2018-08-13] MEDS: POTASSIUM CHLORIDE 20 MEQ TABLET PO SCH (08:39)
[2018-08-13] MEDS: GLIMEPIRIDE 2 MG TABLET PEG SCH ×2 (08:39→20:49)
[2018-08-13] MEDS: GABAPENTIN 100 MG CAPSULE PEG SCH ×2 (08:39→20:48)
[2018-08-13] MEDS: ASPIRIN EC 81 MG TABLET PO SCH (08:40)
[2018-08-13] MEDS: BENZONATATE 100 MG CAPSULE PO SCH ×3 (08:40→20:51)
[2018-08-13] MEDS: SPIRONOLACTONE 25 MG TABLET PO SCH (08:40)
[2018-08-13] MEDS: CHOLECALCIFEROL 1,000 UNIT TABLET PEG SCH (08:41)
[2018-08-13] MEDS: hydrALAZINE 25 MG TABLET PO SCH ×2 (08:43→20:50)
[2018-08-13] MEDS: APIXABAN 5 MG TABLET PEG SCH ×2 (08:43→20:50)
[2018-08-13] MEDS: CYANOCOBALAMIN 500 MCG TABLET PEG SCH (08:43)
[2018-08-13] MEDS: methylPREDNISolone SOD SUC 125 MG/2 ML VIAL IV SCH ×2 (11:50→22:26)
[2018-08-13] MEDS: LEVOFLOXACIN INJ 750 MG in PREMIX 1 EACH IV SCH (16:12)
[2018-08-13] MEDS: ROSUVASTATIN 10 MG TABLET PEG SCH (20:49)
[2018-08-14] MEDS: ALBUTEROL/IPRATROPIUM 3 ML NEB RESP TX SCH ×4 (00:31→19:16)
[2018-08-14] MEDS: LACTULOSE 20 GM/30 ML UDCUP PO SCH ×6 (03:08→22:55)
[2018-08-14 05:19] LABS: Osmolality,Calculated 283.4 MOS/KG (273-304); Potassium 3.8 MMOL/L (3.5-5.1)
[2018-08-14] MEDS: INSULIN GLARGINE 100 UNIT/ML SUBCUT SCH (05:29)
[2018-08-14] MEDS: DORNASE ALFA 2.5 MG/2.5 ML VIAL RESP TX SCH ×2 (07:11→19:16)
[2018-08-14] MEDS: ASPIRIN EC 81 MG TABLET PO SCH (08:37)
[2018-08-14] MEDS: METOPROLOL TARTRATE 50 MG TABLET PEG SCH ×2 (08:37→20:44)
[2018-08-14] MEDS: POTASSIUM CHLORIDE 20 MEQ TABLET PO SCH (08:37)
[2018-08-14] MEDS: GLIMEPIRIDE 2 MG TABLET PEG SCH ×2 (08:38→20:44)
[2018-08-14] MEDS: GABAPENTIN 100 MG CAPSULE PEG SCH ×2 (08:38→20:44)
[2018-08-14] MEDS: APIXABAN 5 MG TABLET PEG SCH ×2 (08:39→20:44)
[2018-08-14] MEDS: SPIRONOLACTONE 25 MG TABLET PO SCH (08:39)
[2018-08-14] MEDS: MONTELUKAST 10 MG TABLET PO SCH ×2 (08:39→20:44)
[2018-08-14] MEDS: PANTOPRAZOLE 40 MG TABLET PO SCH (08:39)
[2018-08-14] MEDS: ISOSORBIDE DINITRATE 20 MG TABLET PEG SCH (08:39)
[2018-08-14] MEDS: BENZONATATE 100 MG CAPSULE PO SCH ×3 (08:40→20:45)
[2018-08-14] MEDS: hydrALAZINE 25 MG TABLET PO SCH ×2 (08:40→20:45)
[2018-08-14] MEDS: CHOLECALCIFEROL 1,000 UNIT TABLET PEG SCH (08:40)
[2018-08-14] MEDS: INSULIN LISPRO 100 UNIT/ML SUBCUT SCH ×4 (08:41→20:39)
[2018-08-14] MEDS: URSODIOL 300 MG CAPSULE PEG SCH ×2 (08:44→20:44)
[2018-08-14] MEDS: CYANOCOBALAMIN 500 MCG TABLET PEG SCH (08:45)
[2018-08-14] MEDS: methylPREDNISolone SOD SUC 125 MG/2 ML VIAL IV SCH (12:17)
[2018-08-14] MEDS: LEVOFLOXACIN INJ 750 MG in PREMIX 1 EACH IV SCH (15:47)
[2018-08-14] MEDS: ROSUVASTATIN 10 MG TABLET PEG SCH (20:44)
[2018-08-15] MEDS: LACTULOSE 20 GM/30 ML UDCUP PO SCH ×3 (02:37→11:01)
[2018-08-15 05:16] LABS: Potassium 4.2 MMOL/L (3.5-5.1)
[2018-08-15] MEDS: INSULIN GLARGINE 100 UNIT/ML SUBCUT SCH (06:10)
[2018-08-15] MEDS: DORNASE ALFA 2.5 MG/2.5 ML VIAL RESP TX SCH (07:35)
[2018-08-15] MEDS: ALBUTEROL/IPRATROPIUM 3 ML NEB RESP TX SCH ×2 (07:35)
[2018-08-15 08:06] LABS: Basophils % 0.2 % (0.0-0.8); Hematocrit 39.8 VOL% (42.0-52.0); Hemoglobin 12.5 GM/DL (14.0-18.0); Immature Granulocytes % 1.4 %; Immature Granulocytes Absolute 0.24 #; Lymphocytes # 0.9 10*3/uL (1.4-4.0); Lymphocytes % 5.3 % (21.2-54.2); Mean Corpuscular HGB Conc 31.4 GM/DL (32-36); Mean Corpuscular Hemoglobin 28 PG (27-34); Mean Corpuscular Volume 87.7 FL (87-102); Mean Platelet Volume 11.5 FL (9.6-12.0); Monocytes # 1.3 10*3/uL (0.11-0.8); Monocytes % 7.7 % (1.7-12.7); Neutrophils # 14.2 10*3/uL (1.4-7.4); Neutrophils % 85.4 % (38.7-73.9); Platelet Count 219 T/CUMM (130-400); Red Blood Count 4.54 MC/CUMM (3.8-5.5); Red Cell Distribution Width 13.2 % (9.3-17.3); White Blood Count 16.7 T/CUMM (4-12)
[2018-08-15] MEDS: INSULIN LISPRO 100 UNIT/ML SUBCUT SCH ×2 (09:10→11:55)
[2018-08-15] MEDS: CHOLECALCIFEROL 1,000 UNIT TABLET PEG SCH (09:17)
[2018-08-15] MEDS: BENZONATATE 100 MG CAPSULE PO SCH (09:18)
[2018-08-15] MEDS: MONTELUKAST 10 MG TABLET PO SCH (09:18)
[2018-08-15] MEDS: SPIRONOLACTONE 25 MG TABLET PO SCH (09:18)
[2018-08-15] MEDS: CYANOCOBALAMIN 500 MCG TABLET PEG SCH (09:18)
[2018-08-15] MEDS: PANTOPRAZOLE 40 MG TABLET PO SCH (09:19)
[2018-08-15] MEDS: APIXABAN 5 MG TABLET PEG SCH (09:19)
[2018-08-15] MEDS: URSODIOL 300 MG CAPSULE PEG SCH (09:19)
[2018-08-15] MEDS: ISOSORBIDE DINITRATE 20 MG TABLET PEG SCH (09:19)
[2018-08-15] MEDS: hydrALAZINE 25 MG TABLET PO SCH (09:19)
[2018-08-15] MEDS: ASPIRIN EC 81 MG TABLET PO SCH (09:19)
[2018-08-15] MEDS: METOPROLOL TARTRATE 50 MG TABLET PEG SCH (09:19)
[2018-08-15] MEDS: GABAPENTIN 100 MG CAPSULE PEG SCH (09:19)
[2018-08-15] MEDS: GLIMEPIRIDE 2 MG TABLET PEG SCH (09:19)
[2018-08-15] MEDS: POTASSIUM CHLORIDE 20 MEQ TABLET PO SCH (09:20)
[2018-08-15 12:58] VITALS: BP 156/74
[2018-08-15] MEDS ORDERED: FUROSEMIDE 20 MG TABLET PO SCH (16:00)
== END 2018-08-15 12:37 | disposition home or self-care (01) | DRG 191 ==
LOC: N.ED 10:03 → SUATTDRO 14:20 → N.EDINP 14:20 → N.4E 18:16
PROVIDERS: ADMIT Internal Medicine; ATTEND Internal Medicine Nephrology

== ENCOUNTER 2018-10-03 17:02 | Inpatient (IN) ==
[2018-10-03] MEDS ORDERED: MAGNESIUM SULF RIDER 4 GM in PREMIX 1 EACH IV PRN (17:05)
[2018-10-03] MEDS ORDERED: ACETAMINOPHEN 325 MG TABLET PO PRN (17:05)
[2018-10-03] MEDS ORDERED: ONDANSETRON 4 MG/2 ML VIAL IV PRN (17:05)
[2018-10-03] MEDS ORDERED: ZALEPLON 5 MG CAPSULE PO PRN (17:05)
[2018-10-03] MEDS ORDERED: POTASSIUM CHLORIDE 20 MEQ TABLET PO PRN (17:05)
[2018-10-03] MEDS ORDERED: MAGNESIUM SULF RIDER 2 GM in PREMIX 1 EACH IV PRN (17:05)
[2018-10-03] MEDS ORDERED: DOCUSATE SODIUM 100 MG CAPSULE PO PRN (17:05)
[2018-10-03] MEDS ORDERED: FUROSEMIDE 40 MG/4 ML VIAL IV SCH (17:14)
[2018-10-03] MEDS ORDERED: ALBUTEROL/IPRATROPIUM 3 ML NEB RESP TX PRN (17:17)
[2018-10-03] MEDS ORDERED: NITROGLYCERIN SL 0.4 MG TABLET SL PRN (17:19)
[2018-10-03] MEDS ORDERED: ENOXAPARIN 30 MG/0.3 ML SYRINGE SUBCUT SCH (17:30)
[2018-10-03] MEDS ORDERED: FUROSEMIDE 40 MG/4 ML VIAL IV ONE (17:31)
[2018-10-03 19:07] LABS: Basophils % 0.4 % (0.0-0.8); Eosinophils # 0.2 10*3/uL (0.0-0.87); Eosinophils % 1.7 % (0.00-10.9); Hematocrit 35.8 VOL% (42.0-52.0); Hemoglobin 10.6 GM/DL (14.0-18.0); Immature Granulocytes % 0.7 %; Immature Granulocytes Absolute 0.07 #; Lymphocytes # 1.1 10*3/uL (1.4-4.0); Mean Corpuscular HGB Conc 29.6 GM/DL (32-36); Mean Corpuscular Volume 88.4 FL (87-102); Neutrophils % 75.2 % (38.7-73.9); Platelet Count 207 T/CUMM (130-400); Red Blood Count 4.05 MC/CUMM (3.8-5.5); Red Cell Distribution Width 16.1 % (9.3-17.3); White Blood Count 9.8 T/CUMM (4-12)
[2018-10-03 19:34] LABS: Bilirubin,Total 0.6 MG/DL (0.2-1.0); Calcium 8.9 MG/DL (8.5-10.1); Osmolality,Calculated 283.3 MOS/KG (273-304); Total Protein 6.3 G/DL (6.4-8.3)
[2018-10-03 19:35] LABS: CKMB % 2.9 %; Troponin I 0.036 NG/ML (0.00-0.045)
[2018-10-03 20:46] LABS: CKMB % 2.7 %; Troponin I 0.029 NG/ML (0.00-0.045)
[2018-10-03] MEDS ORDERED: APIXABAN 5 MG TABLET PO SCH (21:00)
[2018-10-03] MEDS: INSULIN REGULAR 100 UNIT/ML SUBCUT SCH (21:17)
[2018-10-03 23:38] LABS: CKMB % 2.9 %; Troponin I 0.03 NG/ML (0.00-0.045)
[2018-10-04 04:28] LABS: Basophils % 0.5 % (0.0-0.8); Eosinophils # 0.2 10*3/uL (0.0-0.87); Eosinophils % 2.3 % (0.00-10.9); Hematocrit 34.2 VOL% (42.0-52.0); Hemoglobin 10.3 GM/DL (14.0-18.0); Immature Granulocytes % 0.4 %; Immature Granulocytes Absolute 0.03 #; Lymphocytes # 0.9 10*3/uL (1.4-4.0); Lymphocytes % 11.9 % (21.2-54.2); Mean Corpuscular HGB Conc 30.1 GM/DL (32-36); Mean Corpuscular Volume 87.7 FL (87-102); Mean Platelet Volume 11.4 FL (9.6-12.0); Monocytes % 13.1 % (1.7-12.7); Neutrophils % 71.8 % (38.7-73.9); Platelet Count 170 T/CUMM (130-400); White Blood Count 7.3 T/CUMM (4-12)
[2018-10-04 05:11] LABS: Calcium 8.4 MG/DL (8.5-10.1); Risk Ratio 2.48; VLDL CHOLESTEROL 4.2 MG/DL
[2018-10-04] MEDS ORDERED: DEXTROSE 50% 25 GM/50 ML SYRINGE IV ONE (05:27)
[2018-10-04] MEDS: DEXTROSE 50% 25 GM/50 ML SYRINGE IV PRN (05:30)
[2018-10-04] MEDS ORDERED: DEXTROSE 50% 25 GM/50 ML VIAL IV PRN (05:38)
[2018-10-04] MEDS ORDERED: traZODone 50 MG TABLET PO PRN (07:32)
[2018-10-04] MEDS ORDERED: ACETAMINOPHEN 325 MG/10.15 ML UDCUP PEG PRN (08:00)
[2018-10-04] MEDS ORDERED: GLIMEPIRIDE 2 MG TABLET PO SCH (08:00)
[2018-10-04] MEDS ORDERED: traZODone 50 MG TABLET PEG PRN (08:00)
[2018-10-04] MEDS ORDERED: DOCUSATE SODIUM 100 MG/10 ML UDCUP PO PRN (08:00)
[2018-10-04] MEDS ORDERED: DOCUSATE SODIUM 100 MG/10 ML UDCUP PEG PRN (08:00)
[2018-10-04] MEDS: FUROSEMIDE 40 MG/4 ML VIAL IV SCH ×2 (08:59→16:57)
[2018-10-04] MEDS: CITALOPRAM 20 MG TABLET PEG SCH (08:59)
[2018-10-04] MEDS: GLIMEPIRIDE 2 MG TABLET PEG SCH ×2 (08:59→17:05)
[2018-10-04] MEDS: CHOLECALCIFEROL 1,000 UNIT TABLET PEG SCH (08:59)
[2018-10-04] MEDS: predniSONE 10 MG TABLET PEG SCH (09:00)
[2018-10-04] MEDS: LANSOPRAZOLE ODT 30 MG TABLET PEG SCH (09:00)
[2018-10-04] MEDS ORDERED: NON-FORMULARY MEDICATION (Biotin 1,000 MCG) PO SCH (09:00)
[2018-10-04] MEDS: MONTELUKAST 10 MG TABLET PEG SCH (09:00)
[2018-10-04] MEDS: ROSUVASTATIN 10 MG TABLET PO SCH (09:00)
[2018-10-04] MEDS: ASPIRIN CHEW 81 MG TABLET PO SCH (09:00)
[2018-10-04] MEDS ORDERED: ISOSORBIDE MONONITRATE 60 MG TABLET PO SCH (09:00)
[2018-10-04] MEDS: CYANOCOBALAMIN 500 MCG TABLET PEG SCH (09:00)
[2018-10-04] MEDS: hydrALAZINE 25 MG TABLET PEG SCH ×2 (09:00→21:58)
[2018-10-04] MEDS: METOPROLOL TARTRATE 50 MG TABLET PEG SCH ×2 (09:00→21:58)
[2018-10-04] MEDS: INSULIN GLARGINE 100 UNIT/ML SUBCUT SCH (09:00)
[2018-10-04] MEDS: FLUTICASONE 50 MCG NASAL SPRAY 16 GM BOTTLE BOTH NARES SCH ×2 (09:01→21:52)
[2018-10-04] MEDS: URSODIOL 300 MG CAPSULE PEG SCH ×2 (09:02→21:54)
[2018-10-04] MEDS: ALBUTEROL 0.4 MG/ML 30 ML/BOTTLE PEG SCH ×3 (09:28→22:03)
[2018-10-04] MEDS: INSULIN REGULAR 100 UNIT/ML SUBCUT SCH ×3 (12:52→22:12)
[2018-10-04] MEDS: metOLazone 5 MG TABLET PEG SCH (12:52)
[2018-10-04] MEDS: TAMSULOSIN 0.4 MG CAPSULE PO SCH (21:53)
[2018-10-04] MEDS: ISOSORBIDE MONONITRATE 60 MG TABLET PO SCH (21:58)
[2018-10-04] MEDS: GABAPENTIN 50 MG/ML 30 ML/BOTTLE PEG SCH (22:00)
[2018-10-05] MEDS: DEXTROSE 50% 25 GM/50 ML SYRINGE IV PRN ×2 (07:44→10:00)
[2018-10-05] MEDS ORDERED: LACTATED RINGERS 500 ML IV SCH (08:00)
[2018-10-05 08:22] LABS: Basophils # 0.1 10*3/uL (0.0-0.2); Basophils % 0.4 % (0.0-0.8); Eosinophils # 0.1 10*3/uL (0.0-0.87); Eosinophils % 0.8 % (0.00-10.9); Hematocrit 32.8 VOL% (42.0-52.0); Hemoglobin 9.8 GM/DL (14.0-18.0); Immature Granulocytes % 0.6 %; Immature Granulocytes Absolute 0.07 #; Lymphocytes # 1.2 10*3/uL (1.4-4.0); Lymphocytes % 10.4 % (21.2-54.2); Mean Corpuscular HGB Conc 29.9 GM/DL (32-36); Mean Platelet Volume 11.1 FL (9.6-12.0); Monocytes % 12.2 % (1.7-12.7); Neutrophils % 75.6 % (38.7-73.9); Platelet Count 214 T/CUMM (130-400); Red Blood Count 3.77 MC/CUMM (3.8-5.5); Red Cell Distribution Width 15.6 % (9.3-17.3); White Blood Count 11.9 T/CUMM (4-12)
[2018-10-05 08:48] LABS: Calcium 8.6 MG/DL (8.5-10.1); Osmolality,Calculated 292.8 MOS/KG (273-304)
[2018-10-05] MEDS ORDERED: LIDOCAINE 2% 5 ML VIAL ONE (09:00)
[2018-10-05] MEDS ORDERED: POTASSIUM CHLORIDE 20 MEQ PACK PEG SCH (09:30)
[2018-10-05] MEDS ORDERED: MIDAZOLAM 2 MG/2 ML VIAL ONE (10:29)
[2018-10-05] MEDS: LANSOPRAZOLE ODT 30 MG TABLET PEG SCH (14:39)
[2018-10-05] MEDS: POTASSIUM CHLORIDE 20 MEQ PACK PEG SCH ×2 (14:39→21:02)
[2018-10-05] MEDS: CHOLECALCIFEROL 1,000 UNIT TABLET PEG SCH (14:39)
[2018-10-05] MEDS: metOLazone 5 MG TABLET PEG SCH (14:39)
[2018-10-05] MEDS: LOSARTAN 25 MG TABLET PO SCH (14:40)
[2018-10-05] MEDS: hydrALAZINE 25 MG TABLET PEG SCH ×2 (14:40→21:03)
[2018-10-05] MEDS: predniSONE 10 MG TABLET PEG SCH (14:40)
[2018-10-05] MEDS: ISOSORBIDE MONONITRATE 60 MG TABLET PO SCH ×2 (14:40→21:02)
[2018-10-05] MEDS: ASPIRIN CHEW 81 MG TABLET PO SCH (14:40)
[2018-10-05] MEDS: ROSUVASTATIN 10 MG TABLET PO SCH (14:40)
[2018-10-05] MEDS: METOPROLOL TARTRATE 50 MG TABLET PEG SCH ×2 (14:40→21:03)
[2018-10-05] MEDS: CITALOPRAM 20 MG TABLET PEG SCH (14:40)
[2018-10-05] MEDS: URSODIOL 300 MG CAPSULE PEG SCH ×2 (14:41→21:03)
[2018-10-05] MEDS: MONTELUKAST 10 MG TABLET PEG SCH (14:42)
[2018-10-05] MEDS: ALBUTEROL 0.4 MG/ML 30 ML/BOTTLE PEG SCH ×3 (14:42→20:50)
[2018-10-05] MEDS: FLUTICASONE 50 MCG NASAL SPRAY 16 GM BOTTLE BOTH NARES SCH ×3 (14:42→21:04)
[2018-10-05] MEDS: INSULIN GLARGINE 100 UNIT/ML SUBCUT SCH (16:04)
[2018-10-05] MEDS: INSULIN REGULAR 100 UNIT/ML SUBCUT SCH ×3 (16:05→21:04)
[2018-10-05] MEDS: GLIMEPIRIDE 2 MG TABLET PEG SCH ×2 (16:05→17:11)
[2018-10-05] MEDS: FUROSEMIDE 40 MG/4 ML VIAL IV SCH ×2 (16:06→17:11)
[2018-10-05] MEDS: CYANOCOBALAMIN 500 MCG TABLET PEG SCH (17:10)
[2018-10-05] MEDS: POTASSIUM CHLORIDE 20 MEQ/15 ML UDCUP PO PRN ×2 (17:14→19:36)
[2018-10-05] MEDS: diphenhydrAMINE CAP 25 MG CAPSULE PO PRN ×2 (20:12→21:02)
[2018-10-05] MEDS: TAMSULOSIN 0.4 MG CAPSULE PO SCH (21:28)
[2018-10-05] MEDS: GABAPENTIN 50 MG/ML 30 ML/BOTTLE PEG SCH (21:28)
[2018-10-06 05:39] LABS: Basophils % 0.2 % (0.0-0.8); Eosinophils % 0.1 % (0.00-10.9); Hemoglobin 9.7 GM/DL (14.0-18.0); Red Cell Distribution Width 15.6 % (9.3-17.3)
[2018-10-06 05:44] LABS: Immature Granulocytes % 0.6 %; Immature Granulocytes Absolute 0.05 #; Lymphocytes # 0.7 10*3/uL (1.4-4.0); Lymphocytes % 8.7 % (21.2-54.2); Mean Corpuscular HGB Conc 29.4 GM/DL (32-36); Mean Corpuscular Volume 88.2 FL (87-102); Monocytes % 9.8 % (1.7-12.7); Neutrophils % 80.6 % (38.7-73.9); Platelet Count 183 T/CUMM (130-400); Red Blood Count 3.74 MC/CUMM (3.8-5.5); White Blood Count 8.1 T/CUMM (4-12)
[2018-10-06 05:48] LABS: Calcium 8.9 MG/DL (8.5-10.1); Osmolality,Calculated 278.7 MOS/KG (273-304); Prealbumin 17.8 MG/DL (20-40)
[2018-10-06 06:01] LABS: Osmolality,Calculated 280.5 MOS/KG (273-304)
[2018-10-06] MEDS: hydrALAZINE 25 MG TABLET PEG SCH ×2 (09:40→20:54)
[2018-10-06] MEDS: ENOXAPARIN 80 MG/0.8 ML SYRINGE SUBCUT SCH ×2 (09:40→20:48)
[2018-10-06] MEDS: ROSUVASTATIN 10 MG TABLET PO SCH (09:41)
[2018-10-06] MEDS: CYANOCOBALAMIN 500 MCG TABLET PEG SCH (09:41)
[2018-10-06] MEDS: FUROSEMIDE 40 MG/4 ML VIAL IV SCH ×2 (09:41→17:31)
[2018-10-06] MEDS: URSODIOL 300 MG CAPSULE PEG SCH ×2 (09:41→23:37)
[2018-10-06] MEDS: ASPIRIN CHEW 81 MG TABLET PO SCH (09:41)
[2018-10-06] MEDS: POTASSIUM CHLORIDE 20 MEQ PACK PEG SCH ×2 (09:42→20:49)
[2018-10-06] MEDS: MONTELUKAST 10 MG TABLET PEG SCH (09:42)
[2018-10-06] MEDS: CITALOPRAM 20 MG TABLET PEG SCH (09:42)
[2018-10-06] MEDS: GLIMEPIRIDE 2 MG TABLET PEG SCH ×2 (09:42→17:31)
[2018-10-06] MEDS: ISOSORBIDE MONONITRATE 60 MG TABLET PO SCH ×2 (09:43→20:49)
[2018-10-06] MEDS: LANSOPRAZOLE ODT 30 MG TABLET PEG SCH (09:43)
[2018-10-06] MEDS: ALBUTEROL 0.4 MG/ML 30 ML/BOTTLE PEG SCH ×3 (09:43→20:48)
[2018-10-06] MEDS: METOPROLOL TARTRATE 50 MG TABLET PEG SCH ×2 (09:43→20:54)
[2018-10-06] MEDS: CHOLECALCIFEROL 1,000 UNIT TABLET PEG SCH (09:43)
[2018-10-06] MEDS: LOSARTAN 25 MG TABLET PO SCH (09:43)
[2018-10-06] MEDS: predniSONE 10 MG TABLET PEG SCH (09:43)
[2018-10-06] MEDS: metOLazone 5 MG TABLET PEG SCH (09:45)
[2018-10-06] MEDS: INSULIN REGULAR 100 UNIT/ML SUBCUT SCH ×4 (10:34→20:54)
[2018-10-06] MEDS: INSULIN GLARGINE 100 UNIT/ML SUBCUT SCH (10:35)
[2018-10-06] MEDS: FLUTICASONE 50 MCG NASAL SPRAY 16 GM BOTTLE BOTH NARES SCH ×2 (10:35→23:32)
[2018-10-06] MEDS ORDERED: hydrOXYzine HCL 10 MG TABLET PO PRN (16:47)
[2018-10-06] MEDS: GABAPENTIN 50 MG/ML 30 ML/BOTTLE PEG SCH (20:47)
[2018-10-06] MEDS: POTASSIUM CHLORIDE 20 MEQ/15 ML UDCUP PO PRN (20:49)
[2018-10-06] MEDS: TAMSULOSIN 0.4 MG CAPSULE PO SCH (20:54)
[2018-10-06] MEDS: diphenhydrAMINE CAP 25 MG CAPSULE PO PRN (23:37)
[2018-10-07 05:08] LABS: Basophils % 0.2 % (0.0-0.8); Eosinophils # 0.1 10*3/uL (0.0-0.87); Eosinophils % 0.6 % (0.00-10.9); Hematocrit 34.2 VOL% (42.0-52.0); Hemoglobin 10.3 GM/DL (14.0-18.0); Immature Granulocytes % 0.6 %; Immature Granulocytes Absolute 0.06 #; Lymphocytes # 1.3 10*3/uL (1.4-4.0); Lymphocytes % 12.2 % (21.2-54.2); Mean Corpuscular HGB Conc 30.1 GM/DL (32-36); Mean Corpuscular Volume 86.4 FL (87-102); Mean Platelet Volume 11.5 FL (9.6-12.0); Monocytes % 10.9 % (1.7-12.7); Neutrophils % 75.5 % (38.7-73.9); Platelet Count 201 T/CUMM (130-400); Red Blood Count 3.96 MC/CUMM (3.8-5.5); Red Cell Distribution Width 15.4 % (9.3-17.3); White Blood Count 10.5 T/CUMM (4-12)
[2018-10-07 05:22] LABS: Calcium 9.2 MG/DL (8.5-10.1); Osmolality,Calculated 280.1 MOS/KG (273-304)
[2018-10-07] MEDS: POTASSIUM CHLORIDE 20 MEQ/15 ML UDCUP PO PRN (06:24)
[2018-10-07] MEDS ORDERED: ceFAZolin 1,000 MG VIAL IRRIG ONE (07:00)
[2018-10-07] MEDS: INSULIN REGULAR 100 UNIT/ML SUBCUT SCH ×5 (08:26→21:56)
[2018-10-07] MEDS ORDERED: HEPARIN/NACL 0.9% 2 UNITS/ML 500 ML IV ONE (08:44)
[2018-10-07] MEDS ORDERED: ceFAZolin 1,000 MG VIAL ONE (08:46)
[2018-10-07] MEDS ORDERED: TISSUE ADHESIVE 1 EACH APPLICATOR TOP ONE (08:46)
[2018-10-07] MEDS ORDERED: LIDOCAINE 1% 20 ML VIAL ONE (08:47)
[2018-10-07] MEDS ORDERED: MIDAZOLAM 2 MG/2 ML VIAL ONE (08:56)
[2018-10-07] MEDS ORDERED: fentaNYL 100 MCG/2 ML VIAL ONE (08:56)
[2018-10-07] MEDS ORDERED: diphenhydrAMINE 50 MG/1 ML VIAL ONE (09:28)
[2018-10-07] MEDS: APIXABAN 5 MG TABLET PEG SCH ×2 (10:43→10:44)
[2018-10-07] MEDS: INSULIN GLARGINE 100 UNIT/ML SUBCUT SCH (11:27)
[2018-10-07] MEDS: CITALOPRAM 20 MG TABLET PEG SCH (11:30)
[2018-10-07] MEDS: ISOSORBIDE MONONITRATE 60 MG TABLET PO SCH ×2 (11:31→20:28)
[2018-10-07] MEDS: CYANOCOBALAMIN 500 MCG TABLET PEG SCH (11:32)
[2018-10-07] MEDS: MONTELUKAST 10 MG TABLET PEG SCH (11:32)
[2018-10-07] MEDS: LOSARTAN 25 MG TABLET PO SCH (11:32)
[2018-10-07] MEDS: CHOLECALCIFEROL 1,000 UNIT TABLET PEG SCH (11:33)
[2018-10-07] MEDS: ROSUVASTATIN 10 MG TABLET PO SCH (11:33)
[2018-10-07] MEDS: hydrALAZINE 25 MG TABLET PEG SCH ×2 (11:34→20:28)
[2018-10-07] MEDS: METOPROLOL TARTRATE 50 MG TABLET PEG SCH ×2 (11:34→20:28)
[2018-10-07] MEDS: LANSOPRAZOLE ODT 30 MG TABLET PEG SCH (11:34)
[2018-10-07] MEDS: predniSONE 10 MG TABLET PEG SCH (11:34)
[2018-10-07] MEDS: FLUTICASONE 50 MCG NASAL SPRAY 16 GM BOTTLE BOTH NARES SCH ×2 (11:35→20:27)
[2018-10-07] MEDS: ASPIRIN CHEW 81 MG TABLET PO SCH (11:35)
[2018-10-07] MEDS: ALBUTEROL 0.4 MG/ML 30 ML/BOTTLE PEG SCH ×3 (11:35→20:28)
[2018-10-07] MEDS: URSODIOL 300 MG CAPSULE PEG SCH ×2 (11:36→20:28)
[2018-10-07] MEDS: GLIMEPIRIDE 2 MG TABLET PEG SCH ×2 (11:36→16:27)
[2018-10-07] MEDS: POTASSIUM CHLORIDE 20 MEQ PACK PEG SCH ×2 (11:40→20:28)
[2018-10-07] MEDS: oxyCODONE/ACETAMINOPHEN 5-325 MG TABLET PER TUBE PRN ×2 (16:27→21:59)
[2018-10-07] MEDS: diphenhydrAMINE CAP 25 MG CAPSULE PO PRN (19:37)
[2018-10-07] MEDS: GABAPENTIN 50 MG/ML 30 ML/BOTTLE PEG SCH (20:28)
[2018-10-07] MEDS: TAMSULOSIN 0.4 MG CAPSULE PO SCH (20:28)
[2018-10-08 05:31] LABS: Basophils % 0.3 % (0.0-0.8); Eosinophils % 0.4 % (0.00-10.9); Hematocrit 34.2 VOL% (42.0-52.0); Hemoglobin 10.2 GM/DL (14.0-18.0); Immature Granulocytes % 0.7 %; Immature Granulocytes Absolute 0.07 #; Lymphocytes # 1.4 10*3/uL (1.4-4.0); Lymphocytes % 13.2 % (21.2-54.2); Mean Corpuscular HGB Conc 29.8 GM/DL (32-36); Mean Corpuscular Volume 86.8 FL (87-102); Mean Platelet Volume 10.6 FL (9.6-12.0); Monocytes % 11.8 % (1.7-12.7); Neutrophils % 73.6 % (38.7-73.9); Platelet Count 218 T/CUMM (130-400); Red Blood Count 3.94 MC/CUMM (3.8-5.5); Red Cell Distribution Width 15.1 % (9.3-17.3); White Blood Count 10.7 T/CUMM (4-12)
[2018-10-08 05:58] LABS: Calcium 9.1 MG/DL (8.5-10.1); Calcium 9.3 MG/DL (8.5-10.1); Osmolality,Calculated 274.1 MOS/KG (273-304); Osmolality,Calculated 275.1 MOS/KG (273-304)
[2018-10-08 07:43] VITALS: BP 177/77
[2018-10-08] MEDS: oxyCODONE/ACETAMINOPHEN 5-325 MG TABLET PER TUBE PRN (08:36)
[2018-10-08] MEDS: ALBUTEROL 0.4 MG/ML 30 ML/BOTTLE PEG SCH (08:40)
[2018-10-08] MEDS: FLUTICASONE 50 MCG NASAL SPRAY 16 GM BOTTLE BOTH NARES SCH (08:40)
[2018-10-08] MEDS: ISOSORBIDE MONONITRATE 60 MG TABLET PO SCH (08:40)
[2018-10-08] MEDS: URSODIOL 300 MG CAPSULE PEG SCH (08:40)
[2018-10-08] MEDS: POTASSIUM CHLORIDE 20 MEQ PACK PEG SCH (08:40)
[2018-10-08] MEDS: CITALOPRAM 20 MG TABLET PEG SCH (08:40)
[2018-10-08] MEDS: METOPROLOL TARTRATE 50 MG TABLET PEG SCH (08:40)
[2018-10-08] MEDS: ROSUVASTATIN 10 MG TABLET PO SCH (08:41)
[2018-10-08] MEDS: MONTELUKAST 10 MG TABLET PEG SCH (08:41)
[2018-10-08] MEDS: hydrALAZINE 25 MG TABLET PEG SCH (08:41)
[2018-10-08] MEDS: CHOLECALCIFEROL 1,000 UNIT TABLET PEG SCH (08:41)
[2018-10-08] MEDS: ASPIRIN CHEW 81 MG TABLET PO SCH (08:41)
[2018-10-08] MEDS: GLIMEPIRIDE 2 MG TABLET PEG SCH (08:41)
[2018-10-08] MEDS: predniSONE 10 MG TABLET PEG SCH (08:41)
[2018-10-08] MEDS: LANSOPRAZOLE ODT 30 MG TABLET PEG SCH (08:42)
[2018-10-08] MEDS: CYANOCOBALAMIN 500 MCG TABLET PEG SCH (08:42)
[2018-10-08] MEDS: LOSARTAN 25 MG TABLET PO SCH (08:42)
[2018-10-08] MEDS: INSULIN GLARGINE 100 UNIT/ML SUBCUT SCH (08:43)
[2018-10-08] MEDS: INSULIN REGULAR 100 UNIT/ML SUBCUT SCH ×2 (08:43→11:44)
[2018-10-08] MEDS ORDERED: FUROSEMIDE 20 MG TABLET PO SCH (09:00)
[2018-10-08] MEDS: APIXABAN 5 MG TABLET PEG SCH (10:12)
[2018-10-08] MEDS ORDERED: FUROSEMIDE 40 MG TABLET PO SCH (16:00)
== END 2018-10-08 11:46 | disposition home or self-care (01) | DRG 242 ==
LOC: N.2E
PROVIDERS: ADMIT Internal Medicine Interventional Cardiology; ATTEND Internal Medicine Interventional Cardiology
PROC: EGDWPEG (ICD-10-PCS; 2018-10-05 09:35)

== ENCOUNTER 2019-01-29 17:51 | Inpatient (IN) ==
[2019-01-29 18:33] LABS: Basophils % 0.2 % (0.0-0.8); Eosinophils # 0.1 10*3/uL (0.0-0.87); Eosinophils % 0.7 % (0.00-10.9); Hematocrit 41.9 VOL% (42.0-52.0); Hemoglobin 13.4 GM/DL (14.0-18.0); Immature Granulocytes % 0.8 %; Immature Granulocytes Absolute 0.11 #; Lymphocytes % 7.5 % (21.2-54.2); Mean Platelet Volume 11.1 FL (9.6-12.0); Monocytes % 9.4 % (1.7-12.7); Neutrophils % 81.4 % (38.7-73.9); Platelet Count 226 T/CUMM (130-400); Red Blood Count 4.71 MC/CUMM (3.8-5.5); Red Cell Distribution Width 15.9 % (9.3-17.3)
[2019-01-29 18:47] LABS: PT Patient Result 11.1 SECS (9.6-12.2)
[2019-01-29 18:52] LABS: Albumin 3.5 G/DL (3.4-5.0); Bilirubin,Total 0.7 MG/DL (0.2-1.0); Calcium 9.3 MG/DL (8.5-10.1); Osmolality,Calculated 290.1 MOS/KG (273-304); Total Protein 6.4 G/DL (6.4-8.3)
[2019-01-29] MEDS ORDERED: FUROSEMIDE 40 MG/4 ML VIAL IV STA (20:27)
[2019-01-29] MEDS ORDERED: ASPIRIN 325 MG TABLET PO STA (20:27)
[2019-01-29] MEDS ORDERED: NITROGLYCERIN 2% OINT 1 INCH/GM PACK TOP STA ×2 (20:32→22:56)
[2019-01-29] MEDS ORDERED: FUROSEMIDE 100 MG/10 ML VIAL ONE (20:58)
[2019-01-29] MEDS ORDERED: MAGNESIUM SULF RIDER 4 GM in PREMIX 1 EACH IV PRN (23:05)
[2019-01-29] MEDS ORDERED: MAGNESIUM SULF RIDER 2 GM in PREMIX 1 EACH IV PRN (23:05)
[2019-01-29] MEDS ORDERED: GLUCAGON 1 MG VIAL IM PRN ×2 (23:05)
[2019-01-29] MEDS ORDERED: ONDANSETRON 4 MG/2 ML VIAL IV PRN (23:05)
[2019-01-29] MEDS ORDERED: ACETAMINOPHEN 325 MG TABLET PO PRN (23:05)
[2019-01-29] MEDS ORDERED: DEXTROSE 50% 25 GM/50 ML VIAL IV PRN ×2 (23:05)
[2019-01-29] MEDS ORDERED: metOLazone 5 MG TABLET PO PRN (23:09)
[2019-01-29] MEDS ORDERED: TAMSULOSIN 0.4 MG CAPSULE PO PRN (23:09)
[2019-01-29] MEDS ORDERED: ALBUTEROL/IPRATROPIUM 3 ML NEB RESP TX PRN (23:09)
[2019-01-30] MEDS: APIXABAN 5 MG TABLET PO SCH ×3 (00:57→21:30)
[2019-01-30] MEDS: ROSUVASTATIN 10 MG TABLET PO SCH ×2 (00:57→21:30)
[2019-01-30] MEDS: URSODIOL 300 MG CAPSULE PO SCH ×3 (00:57→21:31)
[2019-01-30] MEDS: METOPROLOL TARTRATE 50 MG TABLET PO SCH ×2 (00:57→09:48)
[2019-01-30 04:50] LABS: Basophils % 0.5 % (0.0-0.8); Eosinophils # 0.1 10*3/uL (0.0-0.87); Eosinophils % 1.3 % (0.00-10.9); Hematocrit 35.8 VOL% (42.0-52.0); Hemoglobin 11.7 GM/DL (14.0-18.0); Immature Granulocytes % 0.8 %; Immature Granulocytes Absolute 0.07 #; Lymphocytes # 1.1 10*3/uL (1.4-4.0); Mean Corpuscular HGB Conc 32.7 GM/DL (32-36); Mean Corpuscular Volume 88.4 FL (87-102); Mean Platelet Volume 10.9 FL (9.6-12.0); Monocytes % 11.9 % (1.7-12.7); Neutrophils % 72.5 % (38.7-73.9); Platelet Count 186 T/CUMM (130-400); Red Blood Count 4.05 MC/CUMM (3.8-5.5); Red Cell Distribution Width 15.9 % (9.3-17.3); White Blood Count 8.8 T/CUMM (4-12)
[2019-01-30 05:11] LABS: Albumin 2.9 G/DL (3.4-5.0); Bilirubin,Total 0.7 MG/DL (0.2-1.0); Calcium 8.7 MG/DL (8.5-10.1); Osmolality,Calculated 284.4 MOS/KG (273-304); Total Protein 5.8 G/DL (6.4-8.3)
[2019-01-30] MEDS ORDERED: RANITIDINE 150 MG TABLET PO SCH (09:00)
[2019-01-30] MEDS: INSULIN REGULAR 100 UNIT/ML SUBCUT SCH ×3 (09:02→18:28)
[2019-01-30] MEDS: ISOSORBIDE MONONITRATE 60 MG TABLET PO SCH (09:47)
[2019-01-30] MEDS: CYANOCOBALAMIN 500 MCG TABLET PO SCH (09:48)
[2019-01-30] MEDS: CITALOPRAM 20 MG TABLET PO SCH (09:48)
[2019-01-30] MEDS: CHOLECALCIFEROL 1,000 UNIT TABLET PO SCH (09:48)
[2019-01-30] MEDS: POTASSIUM CHLORIDE 20 MEQ TABLET PO SCH (09:48)
[2019-01-30] MEDS: hydrALAZINE 25 MG TABLET PO SCH ×2 (09:48→21:30)
[2019-01-30] MEDS: ASPIRIN EC 81 MG TABLET PO SCH (09:48)
[2019-01-30] MEDS: FUROSEMIDE 40 MG/4 ML VIAL IV SCH ×2 (09:49→18:28)
[2019-01-30] MEDS: Biotin 1,000 MCG PO SCH (09:53)
[2019-01-30] MEDS: PANTOPRAZOLE 40 MG TABLET PO SCH (10:41)
[2019-01-30] MEDS: MONTELUKAST 10 MG TABLET PO SCH (10:41)
[2019-01-30] MEDS: metOLazone 5 MG TABLET PO SCH (15:16)
[2019-01-30] MEDS: GLIMEPIRIDE 2 MG TABLET PO SCH (21:30)
[2019-01-30] MEDS: traZODone 50 MG TABLET PO PRN (21:30)
[2019-01-30] MEDS: METOPROLOL TARTRATE 100 MG TABLET PO SCH (21:31)
[2019-01-30] MEDS: GABAPENTIN 100 MG CAPSULE PO SCH (21:39)
[2019-01-31 05:22] LABS: Basophils % 0.3 % (0.0-0.8); Eosinophils # 0.2 10*3/uL (0.0-0.87); Eosinophils % 1.8 % (0.00-10.9); Hematocrit 36.1 VOL% (42.0-52.0); Hemoglobin 11.5 GM/DL (14.0-18.0); Immature Granulocytes % 0.8 %; Immature Granulocytes Absolute 0.07 #; Lymphocytes # 1.2 10*3/uL (1.4-4.0); Lymphocytes % 12.6 % (21.2-54.2); Mean Corpuscular HGB Conc 31.9 GM/DL (32-36); Mean Corpuscular Volume 88.7 FL (87-102); Neutrophils % 73.5 % (38.7-73.9); Platelet Count 215 T/CUMM (130-400); Red Blood Count 4.07 MC/CUMM (3.8-5.5); Red Cell Distribution Width 15.9 % (9.3-17.3); White Blood Count 9.2 T/CUMM (4-12)
[2019-01-31 05:39] LABS: Calcium 8.8 MG/DL (8.5-10.1); Osmolality,Calculated 280.4 MOS/KG (273-304)
[2019-01-31] MEDS: POTASSIUM CHLORIDE 20 MEQ TABLET PO SCH ×2 (08:57→21:37)
[2019-01-31] MEDS: URSODIOL 300 MG CAPSULE PO SCH ×2 (08:57→21:38)
[2019-01-31] MEDS: ISOSORBIDE MONONITRATE 60 MG TABLET PO SCH (08:57)
[2019-01-31] MEDS: metOLazone 5 MG TABLET PO SCH (08:58)
[2019-01-31] MEDS: CITALOPRAM 20 MG TABLET PO SCH (08:58)
[2019-01-31] MEDS: GLIMEPIRIDE 2 MG TABLET PO SCH ×2 (08:58→21:48)
[2019-01-31] MEDS: ASPIRIN EC 81 MG TABLET PO SCH (08:58)
[2019-01-31] MEDS: METOPROLOL TARTRATE 100 MG TABLET PO SCH ×2 (08:58→21:38)
[2019-01-31] MEDS: APIXABAN 5 MG TABLET PO SCH ×2 (08:59→21:37)
[2019-01-31] MEDS: CHOLECALCIFEROL 1,000 UNIT TABLET PO SCH (08:59)
[2019-01-31] MEDS: CYANOCOBALAMIN 500 MCG TABLET PO SCH (08:59)
[2019-01-31] MEDS: MONTELUKAST 10 MG TABLET PO SCH (08:59)
[2019-01-31] MEDS: hydrALAZINE 25 MG TABLET PO SCH (08:59)
[2019-01-31] MEDS: PANTOPRAZOLE 40 MG TABLET PO SCH (09:00)
[2019-01-31] MEDS: FUROSEMIDE 40 MG/4 ML VIAL IV SCH ×2 (09:02→17:41)
[2019-01-31] MEDS: Biotin 1,000 MCG PO SCH (09:29)
[2019-01-31] MEDS: INSULIN GLARGINE 100 UNIT/ML SUBCUT SCH (09:29)
[2019-01-31] MEDS: POTASSIUM CHLORIDE 20 MEQ TABLET PO PRN ×3 (11:46→15:49)
[2019-01-31] MEDS: ROSUVASTATIN 10 MG TABLET PO SCH (21:37)
[2019-01-31] MEDS: traZODone 50 MG TABLET PO PRN (21:38)
[2019-01-31] MEDS: GABAPENTIN 100 MG CAPSULE PO SCH (21:38)
[2019-02-01 06:55] LABS: Basophils % 0.2 % (0.0-0.8); Eosinophils # 0.2 10*3/uL (0.0-0.87); Eosinophils % 1.6 % (0.00-10.9); Hematocrit 35.4 VOL% (42.0-52.0); Hemoglobin 11.2 GM/DL (14.0-18.0); Immature Granulocytes % 0.8 %; Immature Granulocytes Absolute 0.08 #; Lymphocytes # 1.2 10*3/uL (1.4-4.0); Lymphocytes % 12.9 % (21.2-54.2); Mean Corpuscular HGB Conc 31.6 GM/DL (32-36); Mean Corpuscular Volume 87.8 FL (87-102); Mean Platelet Volume 11.7 FL (9.6-12.0); Monocytes % 12.5 % (1.7-12.7); Platelet Count 223 T/CUMM (130-400); Red Blood Count 4.03 MC/CUMM (3.8-5.5); Red Cell Distribution Width 15.9 % (9.3-17.3); White Blood Count 9.4 T/CUMM (4-12)
[2019-02-01 07:29] LABS: Calcium 9.1 MG/DL (8.5-10.1); Osmolality,Calculated 282.5 MOS/KG (273-304)
[2019-02-01] MEDS: FUROSEMIDE 40 MG/4 ML VIAL IV SCH (08:30)
[2019-02-01] MEDS: INSULIN GLARGINE 100 UNIT/ML SUBCUT SCH (08:55)
[2019-02-01] MEDS: metOLazone 5 MG TABLET PO SCH (08:56)
[2019-02-01] MEDS: CITALOPRAM 20 MG TABLET PO SCH (08:56)
[2019-02-01] MEDS: CHOLECALCIFEROL 1,000 UNIT TABLET PO SCH (08:56)
[2019-02-01] MEDS: URSODIOL 300 MG CAPSULE PO SCH (08:56)
[2019-02-01] MEDS: ASPIRIN EC 81 MG TABLET PO SCH (08:57)
[2019-02-01] MEDS: ISOSORBIDE MONONITRATE 60 MG TABLET PO SCH (08:57)
[2019-02-01] MEDS: MONTELUKAST 10 MG TABLET PO SCH (08:57)
[2019-02-01] MEDS: FUROSEMIDE 40 MG TABLET PO SCH ×2 (08:58→15:54)
[2019-02-01] MEDS: METOPROLOL TARTRATE 100 MG TABLET PO SCH (08:58)
[2019-02-01] MEDS: APIXABAN 5 MG TABLET PO SCH (08:58)
[2019-02-01] MEDS: CYANOCOBALAMIN 500 MCG TABLET PO SCH (08:58)
[2019-02-01] MEDS: PANTOPRAZOLE 40 MG TABLET PO SCH (08:59)
[2019-02-01] MEDS: Biotin 1,000 MCG PO SCH (08:59)
[2019-02-01] MEDS: POTASSIUM CHLORIDE 20 MEQ TABLET PO SCH (08:59)
[2019-02-01] MEDS: GLIMEPIRIDE 2 MG TABLET PO SCH (08:59)
[2019-02-01 09:09] VITALS: BP 165/88
== END 2019-02-01 16:21 | disposition home or self-care (01) | DRG 291 ==
LOC: N.ED 17:51 → N.EDINP 23:05 → N.TELES 23:10
PROVIDERS: ADMIT Internal Medicine; ATTEND Internal Medicine

== ENCOUNTER 2019-02-09 11:02 | Observation (INO) ==
[2019-02-09] MEDS ORDERED: ENOXAPARIN 100 MG/ML SYRINGE SUBCUT STA (11:28)
[2019-02-09] MEDS ORDERED: ASPIRIN 325 MG TABLET PO STA (11:28)
[2019-02-09 11:40] LABS: Basophils # 0.1 10*3/uL (0.0-0.2); Basophils % 0.4 % (0.0-0.8); Eosinophils # 0.1 10*3/uL (0.0-0.87); Eosinophils % 0.5 % (0.00-10.9); Hematocrit 39.4 VOL% (42.0-52.0); Hemoglobin 13.2 GM/DL (14.0-18.0); Immature Granulocytes % 0.7 %; Immature Granulocytes Absolute 0.08 #; Lymphocytes # 1.7 10*3/uL (1.4-4.0); Lymphocytes % 14.6 % (21.2-54.2); Mean Corpuscular HGB Conc 33.5 GM/DL (32-36); Mean Corpuscular Volume 84.9 FL (87-102); Mean Platelet Volume 10.2 FL (9.6-12.0); Monocytes % 8.5 % (1.7-12.7); Neutrophils % 75.3 % (38.7-73.9); Platelet Count 277 T/CUMM (130-400); Red Blood Count 4.64 MC/CUMM (3.8-5.5); Red Cell Distribution Width 14.3 % (9.3-17.3); White Blood Count 11.9 T/CUMM (4-12)
[2019-02-09 11:44] LABS: INR 0.9; PT Patient Result 10.3 SECS (9.6-12.2)
[2019-02-09 11:56] LABS: Albumin 3.5 G/DL (3.4-5.0); Bilirubin,Total 0.6 MG/DL (0.2-1.0); Calcium 9.5 MG/DL (8.5-10.1); Osmolality,Calculated 291.1 MOS/KG (273-304); Total Protein 6.6 G/DL (6.4-8.3)
[2019-02-09] MEDS ORDERED: POTASSIUM CHLORIDE 20 MEQ TABLET PO STA (12:06)
[2019-02-09] MEDS ORDERED: NITROGLYCERIN SL 0.4 MG TABLET SL STA (12:32)
[2019-02-09] MEDS ORDERED: ONDANSETRON 4 MG/2 ML VIAL IV STA (12:58)
[2019-02-09] MEDS ORDERED: ACETAMINOPHEN 325 MG TABLET PO PRN (12:59)
[2019-02-09] MEDS ORDERED: GLUCAGON 1 MG VIAL IM PRN (12:59)
[2019-02-09] MEDS ORDERED: ONDANSETRON 4 MG/2 ML VIAL IV PRN (12:59)
[2019-02-09] MEDS ORDERED: DOCUSATE SODIUM 100 MG CAPSULE PO PRN (12:59)
[2019-02-09] MEDS ORDERED: DEXTROSE 50% 25 GM/50 ML VIAL IV PRN (12:59)
[2019-02-09] MEDS ORDERED: SODIUM CHLORIDE 0.9% 1,000 ML IV SCH (13:00)
[2019-02-09] MEDS ORDERED: NITROGLYCERIN SL 0.4 MG TABLET SL PRN (13:11)
[2019-02-09] MEDS ORDERED: MORPHINE 4 MG/1 ML VIAL IV STA (13:16)
[2019-02-09] MEDS ORDERED: MORPHINE 4 MG/1 ML VIAL IV PRN (13:21)
[2019-02-09] MEDS: INSULIN LISPRO 100 UNIT/ML SUBCUT SCH ×2 (16:44→20:46)
[2019-02-09] MEDS: GLIMEPIRIDE 2 MG TABLET PO SCH (17:40)
[2019-02-09] MEDS ORDERED: GABAPENTIN 100 MG CAPSULE PO SCH (18:00)
[2019-02-09] MEDS: POTASSIUM CHLORIDE 20 MEQ TABLET PO SCH (20:48)
[2019-02-09] MEDS: METOPROLOL TARTRATE 100 MG TABLET PO SCH (20:48)
[2019-02-09] MEDS: hydrALAZINE 25 MG TABLET PO SCH (20:48)
[2019-02-09] MEDS ORDERED: traZODone 50 MG TABLET PO SCH (21:00)
[2019-02-09] MEDS ORDERED: APIXABAN 5 MG TABLET PO SCH (21:00)
[2019-02-09] MEDS ORDERED: FUROSEMIDE 40 MG TABLET PO SCH (21:00)
[2019-02-09] MEDS ORDERED: ROSUVASTATIN 10 MG TABLET PO SCH (21:00)
[2019-02-09] MEDS ORDERED: TAMSULOSIN 0.4 MG CAPSULE PO SCH (21:00)
[2019-02-10 04:21] LABS: Basophils % 0.3 % (0.0-0.8); Eosinophils # 0.1 10*3/uL (0.0-0.87); Eosinophils % 0.6 % (0.00-10.9); Hematocrit 41.5 VOL% (42.0-52.0); Hemoglobin 13.5 GM/DL (14.0-18.0); Immature Granulocytes % 0.5 %; Immature Granulocytes Absolute 0.08 #; Lymphocytes # 1.4 10*3/uL (1.4-4.0); Lymphocytes % 9.1 % (21.2-54.2); Mean Corpuscular HGB Conc 32.5 GM/DL (32-36); Mean Corpuscular Volume 86.1 FL (87-102); Mean Platelet Volume 10.3 FL (9.6-12.0); Monocytes % 8.1 % (1.7-12.7); Neutrophils % 81.4 % (38.7-73.9); Platelet Count 251 T/CUMM (130-400); Red Blood Count 4.82 MC/CUMM (3.8-5.5); Red Cell Distribution Width 14.5 % (9.3-17.3); White Blood Count 15.5 T/CUMM (4-12)
[2019-02-10 04:57] LABS: Calcium 9.4 MG/DL (8.5-10.1); Osmolality,Calculated 286.1 MOS/KG (273-304)
[2019-02-10] MEDS ORDERED: POTASSIUM CHLORIDE 20 MEQ TABLET PO SCH (09:00)
[2019-02-10] MEDS ORDERED: metOLazone 5 MG TABLET PO SCH (09:00)
[2019-02-10] MEDS ORDERED: CITALOPRAM 20 MG TABLET PO SCH (09:00)
[2019-02-10] MEDS ORDERED: INSULIN GLARGINE 100 UNIT/ML SUBCUT SCH (09:00)
[2019-02-10] MEDS ORDERED: ISOSORBIDE MONONITRATE 60 MG TABLET PO SCH (09:00)
[2019-02-10] MEDS ORDERED: PANTOPRAZOLE 40 MG TABLET PO SCH (09:00)
[2019-02-10] MEDS ORDERED: ASPIRIN EC 81 MG TABLET PO SCH (09:00)
[2019-02-10] MEDS: POTASSIUM CHLORIDE 20 MEQ TABLET PO SCH (09:51)
[2019-02-10] MEDS: GLIMEPIRIDE 2 MG TABLET PO SCH (09:51)
[2019-02-10] MEDS: hydrALAZINE 25 MG TABLET PO SCH (09:51)
[2019-02-10] MEDS: METOPROLOL TARTRATE 100 MG TABLET PO SCH (09:51)
[2019-02-10] MEDS: POTASSIUM CHLORIDE 20 MEQ TABLET PO PRN ×2 (09:52→15:26)
[2019-02-10] MEDS: INSULIN LISPRO 100 UNIT/ML SUBCUT SCH ×2 (10:41→15:25)
[2019-02-10 16:31] VITALS: BP 119/55
== END 2019-02-10 17:10 | disposition home or self-care (01) ==
LOC: EDBD → EDUNIT# → N.EDINP 11:02 → N.ED 11:02 → N.EDINP 15:11 → N.TELES 15:26
PROVIDERS: ADMIT Internal Medicine; ATTEND Internal Medicine

== ENCOUNTER 2019-10-13 20:10 | Inpatient (IN) ==
[2019-10-13] MEDS ORDERED: ACETAMINOPHEN/CODEINE 120-12 MG/5 ML 12.5 ML UDCUP PO STA (20:44)
[2019-10-13] MEDS ORDERED: methylPREDNISolone SOD SUC 125 MG/2 ML VIAL IV STA (20:44)
[2019-10-13] MEDS ORDERED: AZITHROMYCIN INJ 500 MG in SODIUM CHLORIDE 0.9% 250 ML IV STA (20:44)
[2019-10-13] MEDS ORDERED: cefTRIAXone 1,000 MG in SODIUM CHLORIDE 0.9% 100 ML IV STA (20:58)
[2019-10-13] MEDS: TERBUTALINE 1 MG/1 ML VIAL SUBCUT SCH ×2 (21:00→23:30)
[2019-10-13 22:15] LABS: Basophils % 0.3 % (0.0-0.8); Eosinophils # 0.1 10*3/uL (0.0-0.87); Eosinophils % 0.3 % (0.00-10.9); Hematocrit 39.2 VOL% (42.0-52.0); Hemoglobin 12.9 GM/DL (14.0-18.0); Immature Granulocytes % 0.5 %; Immature Granulocytes Absolute 0.08 #; Lymphocytes # 0.6 10*3/uL (1.4-4.0); Lymphocytes % 3.7 % (21.2-54.2); Mean Corpuscular HGB Conc 32.9 GM/DL (32-36); Mean Corpuscular Volume 89.7 FL (87-102); Monocytes % 5.4 % (1.7-12.7); Neutrophils % 89.8 % (38.7-73.9); Platelet Count 237 T/CUMM (130-400); Red Blood Count 4.37 MC/CUMM (3.8-5.5); Red Cell Distribution Width 15.8 % (9.3-17.3); White Blood Count 15.5 T/CUMM (4-12)
[2019-10-13 22:28] LABS: PT Patient Result 10.6 SECS (9.8-11.9); Partial Thromboplastin Time 28.5 SECS (23.9-33.8)
[2019-10-13 22:32] LABS: Alanine Aminotransferase 39 U/L (16-61); Albumin 3.5 G/DL (3.4-5.0); Alkaline Phosphatase 98 U/L (45-117); Aspartate Amino Transferase 38 U/L (0-37); Blood Urea Nitrogen 38 MG/DL (7-18); CKMB % 2.2 %; Calcium 8.9 MG/DL (8.5-10.1); Estimated Glom Filtration Rate 35 ML/MIN; Ferritin 79.5 ng/ml (26-388); Glucose 258 MG/DL (74-106); Osmolality,Calculated 279.7 MOS/KG (273-304); Total Protein 7.4 G/DL (6.4-8.3); Troponin I < 0.015 NG/ML (0.00-0.045)
[2019-10-13 23:27] LABS: Lymphocytes 5 % (20-55); Platelet Estimate Normal; Segmented Neutrophils 86 % (50-85); Total Cells Counted 100
[2019-10-13 23:28] LABS: Anisocytosis Slight; Microcytosis Slight; Stomatocytes Slight
[2019-10-13 23:29] LABS: Ovalocytes Slight; Polychromasia Slight
[2019-10-13 23:33] LABS: Apearance,Urine CLEAR (Clear); Bilirubin,Urine Negative (Negative); Blood, Urine Negative (Negative); Glucose,Urine (UA) >=500 mg/dL (Negative); Ketones,Urine Negative (Negative); Mucus,Urine Occasional /LPF (Occasional); Nitrite,Urine Negative (Negative); Protein,Urine 100 MG/DL; RBC,Urine 1 /HPF (0-4); Squamous Epithelial Cell,Urine Occasional /HPF (0-10); Urine Color Yellow (Yellow); Urine Specific Gravity 1.011 (1.001-1.035); Urine Urobilinogen < 2.0 EU/DL (0.2-1.0); WBC,Urine <1 /HPF (0-6)
[2019-10-13] MEDS ORDERED: DEXTROSE 50% 25 GM/50 ML SYRINGE IV PRN (23:59)
[2019-10-13] MEDS ORDERED: GLUCAGON 1 MG VIAL IM PRN ×2 (23:59)
[2019-10-13] MEDS ORDERED: DEXTROSE 10% 250 ML BAG IV PRN (23:59)
[2019-10-14] MEDS: TERBUTALINE 1 MG/1 ML VIAL SUBCUT SCH ×2 (00:30)
[2019-10-14 06:57] LABS: Basophils % 0.1 % (0.0-0.8); Hematocrit 35.3 VOL% (42.0-52.0); Hemoglobin 11.6 GM/DL (14.0-18.0); Immature Granulocytes % 0.5 %; Immature Granulocytes Absolute 0.08 #; Lymphocytes # 0.4 10*3/uL (1.4-4.0); Lymphocytes % 2.4 % (21.2-54.2); Mean Corpuscular HGB Conc 32.9 GM/DL (32-36); Mean Corpuscular Volume 89.6 FL (87-102); Mean Platelet Volume 10.7 FL (9.6-12.0); Monocytes % 1.3 % (1.7-12.7); Neutrophils % 95.7 % (38.7-73.9); Platelet Count 173 T/CUMM (130-400); Red Blood Count 3.94 MC/CUMM (3.8-5.5); Red Cell Distribution Width 15.9 % (9.3-17.3); White Blood Count 14.9 T/CUMM (4-12)
[2019-10-14 07:32] LABS: Calcium 8.8 MG/DL (8.5-10.1); Osmolality,Calculated 287.7 MOS/KG (273-304)
[2019-10-14] MEDS: ISOSORBIDE MONONITRATE 60 MG TABLET PO SCH (08:46)
[2019-10-14] MEDS: POTASSIUM CHLORIDE 20 MEQ TABLET PO SCH ×2 (08:47→21:50)
[2019-10-14] MEDS: CHOLECALCIFEROL 1,000 UNIT TABLET PO SCH (08:47)
[2019-10-14] MEDS: APIXABAN 5 MG TABLET PO SCH ×2 (08:47→21:50)
[2019-10-14] MEDS: ASPIRIN EC 81 MG TABLET PO SCH (08:49)
[2019-10-14] MEDS: SPIRONOLACTONE 25 MG TABLET PO SCH (08:49)
[2019-10-14] MEDS: INSULIN GLARGINE 100 UNIT/ML SUBCUT SCH (09:11)
[2019-10-14] MEDS: ursodioL 300 MG CAPSULE PO SCH ×2 (10:13→21:50)
[2019-10-14] MEDS: INSULIN LISPRO 100 UNIT/ML SUBCUT SCH ×3 (10:18→17:30)
[2019-10-14 13:09] LABS: Lymphocytes 1 % (20-55); Platelet Estimate Normal; Segmented Neutrophils 97 % (50-85); Total Cells Counted 100
[2019-10-14 14:21] LABS: ABG Base Excess -1.5 MMOL/L (-2.5-2.5); ABG HCO3 23.1 MMOL/L (20-26); ABG Oxygen Saturation 98.6 % (95-100); ABG PCO2 29.4 MM HG (35-48); ABG PH 7.468 (7.35-7.45); ABG PO2 98.5 MM HG (80-95); ABG TCO2 19.1 MMOL/L (23-27); Allen Test Positive; Pt O2 Delivery Device BIPAP
[2019-10-14] MEDS: ALUMINUM/MAGNES/SIMETH MAX STR 30 ML UDCUP PO PRN (15:44)
[2019-10-14] MEDS: ACETAMINOPHEN 325 MG TABLET PO PRN (15:44)
[2019-10-14] MEDS: GABAPENTIN 100 MG CAPSULE PO SCH (18:27)
[2019-10-14] MEDS ORDERED: AZITHROMYCIN INJ 500 MG in SODIUM CHLORIDE 0.9% 250 ML IV SCH (21:00)
[2019-10-14] MEDS: ROSUVASTATIN 10 MG TABLET PO SCH (21:50)
[2019-10-14] MEDS: traZODone 50 MG TABLET PO SCH (21:50)
[2019-10-14] MEDS: AZITHROMYCIN 250 MG TABLET PO SCH (21:50)
[2019-10-14] MEDS: TAMSULOSIN 0.4 MG CAPSULE PO SCH (21:50)
[2019-10-14] MEDS: cefTRIAXone 1,000 MG in SODIUM CHLORIDE 0.9% 100 ML IV SCH (21:50)
[2019-10-14] MEDS: MONTELUKAST 10 MG TABLET PO SCH (21:50)
[2019-10-15] MEDS: INSULIN LISPRO 100 UNIT/ML SUBCUT SCH ×4 (00:25→19:25)
[2019-10-15] MEDS: INSULIN GLARGINE 100 UNIT/ML SUBCUT SCH (09:01)
[2019-10-15] MEDS: CHOLECALCIFEROL 1,000 UNIT TABLET PO SCH (09:01)
[2019-10-15] MEDS: APIXABAN 5 MG TABLET PO SCH (09:01)
[2019-10-15] MEDS: ASPIRIN EC 81 MG TABLET PO SCH (09:01)
[2019-10-15] MEDS: ursodioL 300 MG CAPSULE PO SCH ×2 (09:01→22:00)
[2019-10-15] MEDS: SPIRONOLACTONE 25 MG TABLET PO SCH (09:01)
[2019-10-15] MEDS: ISOSORBIDE MONONITRATE 60 MG TABLET PO SCH (09:01)
[2019-10-15] MEDS: POTASSIUM CHLORIDE 20 MEQ TABLET PO SCH ×2 (11:04→22:00)
[2019-10-15] MEDS: ALUMINUM/MAGNES/SIMETH MAX STR 30 ML UDCUP PO PRN (12:15)
[2019-10-15] MEDS: ACETAMINOPHEN 325 MG TABLET PO PRN (15:55)
[2019-10-15] MEDS: GABAPENTIN 100 MG CAPSULE PO SCH (19:20)
[2019-10-15] MEDS: AZITHROMYCIN 250 MG TABLET PO SCH (22:00)
[2019-10-15] MEDS: MONTELUKAST 10 MG TABLET PO SCH (22:00)
[2019-10-15] MEDS: ROSUVASTATIN 10 MG TABLET PO SCH (22:00)
[2019-10-15] MEDS: cefTRIAXone 1,000 MG in SODIUM CHLORIDE 0.9% 100 ML IV SCH (22:00)
[2019-10-15] MEDS: TAMSULOSIN 0.4 MG CAPSULE PO SCH (22:00)
[2019-10-15] MEDS: traZODone 50 MG TABLET PO SCH (22:00)
[2019-10-16] MEDS: INSULIN LISPRO 100 UNIT/ML SUBCUT SCH ×4 (01:16→18:56)
[2019-10-16 06:34] LABS: Basophils % 0.2 % (0.0-0.8); Eosinophils # 0.1 10*3/uL (0.0-0.87); Eosinophils % 0.4 % (0.00-10.9); Hematocrit 31.6 VOL% (42.0-52.0); Hemoglobin 10.4 GM/DL (14.0-18.0); Immature Granulocytes % 0.9 %; Immature Granulocytes Absolute 0.11 #; Lymphocytes # 0.8 10*3/uL (1.4-4.0); Lymphocytes % 6.6 % (21.2-54.2); Mean Corpuscular HGB Conc 32.9 GM/DL (32-36); Mean Corpuscular Volume 90.8 FL (87-102); Mean Platelet Volume 10.9 FL (9.6-12.0); Monocytes % 8.6 % (1.7-12.7); Neutrophils % 83.3 % (38.7-73.9); Platelet Count 174 T/CUMM (130-400); Red Blood Count 3.48 MC/CUMM (3.8-5.5); Red Cell Distribution Width 16.9 % (9.3-17.3); White Blood Count 12.4 T/CUMM (4-12)
[2019-10-16 06:54] LABS: Calcium 9.2 MG/DL (8.5-10.1); Osmolality,Calculated 279.2 MOS/KG (273-304)
[2019-10-16] MEDS: ASPIRIN EC 81 MG TABLET PO SCH (10:11)
[2019-10-16] MEDS: SPIRONOLACTONE 25 MG TABLET PO SCH (10:11)
[2019-10-16] MEDS: CHOLECALCIFEROL 1,000 UNIT TABLET PO SCH (10:11)
[2019-10-16] MEDS: POTASSIUM CHLORIDE 20 MEQ TABLET PO SCH (10:11)
[2019-10-16] MEDS: ursodioL 300 MG CAPSULE PO SCH ×2 (10:11→20:53)
[2019-10-16] MEDS: ISOSORBIDE MONONITRATE 60 MG TABLET PO SCH (10:11)
[2019-10-16] MEDS: INSULIN GLARGINE 100 UNIT/ML SUBCUT SCH (11:36)
[2019-10-16] MEDS: ACETAMINOPHEN 325 MG TABLET PO PRN (18:03)
[2019-10-16] MEDS: GABAPENTIN 100 MG CAPSULE PO SCH (18:03)
[2019-10-16] MEDS: TAMSULOSIN 0.4 MG CAPSULE PO SCH (20:53)
[2019-10-16] MEDS: AZITHROMYCIN 250 MG TABLET PO SCH (20:53)
[2019-10-16] MEDS: cefTRIAXone 1,000 MG in SODIUM CHLORIDE 0.9% 100 ML IV SCH (20:53)
[2019-10-16] MEDS: traZODone 50 MG TABLET PO SCH (20:53)
[2019-10-16] MEDS: ROSUVASTATIN 10 MG TABLET PO SCH (20:53)
[2019-10-16] MEDS: MONTELUKAST 10 MG TABLET PO SCH (20:53)
[2019-10-17] MEDS: INSULIN LISPRO 100 UNIT/ML SUBCUT SCH ×2 (00:24→05:51)
[2019-10-17 05:24] LABS: Basophils # 0.1 10*3/uL (0.0-0.2); Basophils % 0.5 % (0.0-0.8); Eosinophils # 0.2 10*3/uL (0.0-0.87); Eosinophils % 1.7 % (0.00-10.9); Hematocrit 34.5 VOL% (42.0-52.0); Hemoglobin 11.1 GM/DL (14.0-18.0); Immature Granulocytes % 2.8 %; Immature Granulocytes Absolute 0.27 #; Lymphocytes # 1.2 10*3/uL (1.4-4.0); Lymphocytes % 12.5 % (21.2-54.2); Mean Corpuscular HGB Conc 32.2 GM/DL (32-36); Mean Platelet Volume 10.9 FL (9.6-12.0); Monocytes % 9.8 % (1.7-12.7); Neutrophils % 72.7 % (38.7-73.9); Platelet Count 194 T/CUMM (130-400); Red Blood Count 3.79 MC/CUMM (3.8-5.5); Red Cell Distribution Width 16.5 % (9.3-17.3); White Blood Count 9.6 T/CUMM (4-12)
[2019-10-17 05:51] LABS: Calcium 9.3 MG/DL (8.5-10.1); Osmolality,Calculated 276.1 MOS/KG (273-304)
[2019-10-17] MEDS: SPIRONOLACTONE 25 MG TABLET PO SCH (08:35)
[2019-10-17] MEDS: ursodioL 300 MG CAPSULE PO SCH (08:35)
[2019-10-17] MEDS: INSULIN GLARGINE 100 UNIT/ML SUBCUT SCH (08:35)
[2019-10-17] MEDS: ISOSORBIDE MONONITRATE 60 MG TABLET PO SCH (08:35)
[2019-10-17] MEDS: CHOLECALCIFEROL 1,000 UNIT TABLET PO SCH (08:35)
[2019-10-17 09:26] VITALS: BP 139/64
== END 2019-10-17 12:28 | disposition home or self-care (01) | DRG 194 ==
LOC: N.ED 20:10 → SUATTDRO 23:59 → N.EDINP 23:59 → N.2E 10-14 02:56
PROVIDERS: ADMIT Family Medicine; ATTEND Family Medicine

== ENCOUNTER 2020-04-02 15:09 | Inpatient (IN) ==
[2020-04-02 15:56] LABS: Basophils % 0.2 % (0.0-0.8); Hematocrit 31.9 VOL% (42.0-52.0); Hemoglobin 10.2 GM/DL (14.0-18.0); Immature Granulocytes % 0.8 %; Immature Granulocytes Absolute 0.18 #; Lymphocytes # 0.6 10*3/uL (1.4-4.0); Lymphocytes % 2.5 % (21.2-54.2); Mean Corpuscular Volume 90.4 FL (87-102); Mean Platelet Volume 9.7 FL (9.6-12.0); Monocytes % 7.4 % (1.7-12.7); Neutrophils % 89.1 % (38.7-73.9); Platelet Count 323 T/CUMM (130-400); Red Blood Count 3.53 MC/CUMM (3.8-5.5); Red Cell Distribution Width 14.6 % (9.3-17.3); White Blood Count 23.6 T/CUMM (4-12)
[2020-04-02 16:07] LABS: Alanine Aminotransferase 39 U/L (16-61); Albumin 3.2 G/DL (3.4-5.0); Alkaline Phosphatase 105 U/L (45-117); Aspartate Amino Transferase 25 U/L (0-37); Blood Urea Nitrogen 25 MG/DL (7-18); Calcium 9.1 MG/DL (8.5-10.1); Estimated Glom Filtration Rate 45 ML/MIN; Glucose 187 MG/DL (74-106); Osmolality,Calculated 278.1 MOS/KG (273-304); Total Protein 7.2 G/DL (6.4-8.3)
[2020-04-02] MEDS ORDERED: cefTRIAXone 1,000 MG in SODIUM CHLORIDE 0.9% 100 ML IV STA (16:34)
[2020-04-02] MEDS ORDERED: AZITHROMYCIN 250 MG TABLET PO STA (16:34)
[2020-04-02] MEDS ORDERED: GLUCAGON 1 MG VIAL IM PRN (16:53)
[2020-04-02] MEDS ORDERED: DOCUSATE SODIUM 100 MG CAPSULE PO PRN (16:53)
[2020-04-02] MEDS ORDERED: ONDANSETRON 4 MG/2 ML VIAL IV PRN (16:53)
[2020-04-02] MEDS ORDERED: DEXTROSE 50% 25 GM/50 ML VIAL IV PRN (16:53)
[2020-04-02] MEDS ORDERED: LABETALOL 20 MG/4 ML SYRINGE IV STA (16:57)
[2020-04-02] MEDS ORDERED: NITROGLYCERIN SL 0.4 MG TABLET SL PRN (17:35)
[2020-04-02] MEDS ORDERED: ALBUTEROL/IPRATROPIUM 3 ML NEB RESP TX PRN (17:35)
[2020-04-02 18:00] LABS: Band Neutrophils 1 % (0-10); Lymphocytes 5 % (20-55); Platelet Estimate Normal; Segmented Neutrophils 87 % (50-85); Total Cells Counted 100
[2020-04-02] MEDS ORDERED: amLODIPine 5 MG TABLET PO ONE (19:25)
[2020-04-02] MEDS: ALBUTEROL/IPRATROPIUM 3 ML NEB RESP TX SCH (19:35)
[2020-04-02] MEDS: DOXYCYCLINE HYCLATE 100 MG CAPSULE PO SCH (20:37)
[2020-04-02] MEDS: FUROSEMIDE 40 MG TABLET PO SCH (20:37)
[2020-04-02] MEDS: APIXABAN 5 MG TABLET PO SCH (20:37)
[2020-04-02] MEDS: GABAPENTIN 300 MG CAPSULE PO SCH (20:38)
[2020-04-02] MEDS: ursodioL 300 MG CAPSULE PO SCH (20:38)
[2020-04-02] MEDS: TAMSULOSIN 0.4 MG CAPSULE PO SCH (20:38)
[2020-04-02] MEDS: INSULIN REGULAR 100 UNIT/ML SUBCUT SCH (20:38)
[2020-04-02] MEDS: LACTOBACILLUS ACIDOPHILUS/BULGARICUS CAPLET PO SCH (20:38)
[2020-04-02] MEDS: ROSUVASTATIN 10 MG TABLET PO SCH (20:38)
[2020-04-02] MEDS: CHOLECALCIFEROL 1,000 UNIT TABLET PO SCH (20:38)
[2020-04-02] MEDS: guaiFENesin/DM ER 600-30 MG TABLET PO SCH (20:38)
[2020-04-02] MEDS: MONTELUKAST 10 MG TABLET PO SCH (20:39)
[2020-04-02] MEDS: METOPROLOL TARTRATE 50 MG TABLET PO SCH (20:39)
[2020-04-03] MEDS: ALBUTEROL/IPRATROPIUM 3 ML NEB RESP TX SCH ×4 (00:33→19:00)
[2020-04-03 06:12] LABS: Basophils % 0.1 % (0.0-0.8); Eosinophils % 0.1 % (0.00-10.9); Hematocrit 28.5 VOL% (42.0-52.0); Hemoglobin 8.8 GM/DL (14.0-18.0); Immature Granulocytes % 2.3 %; Immature Granulocytes Absolute 0.31 #; Lymphocytes # 0.7 10*3/uL (1.4-4.0); Lymphocytes % 5.3 % (21.2-54.2); Mean Corpuscular HGB Conc 30.9 GM/DL (32-36); Mean Corpuscular Volume 91.3 FL (87-102); Monocytes % 11.3 % (1.7-12.7); Neutrophils % 80.9 % (38.7-73.9); Platelet Count 276 T/CUMM (130-400); Red Blood Count 3.12 MC/CUMM (3.8-5.5); Red Cell Distribution Width 14.7 % (9.3-17.3); White Blood Count 13.7 T/CUMM (4-12)
[2020-04-03 06:49] LABS: Calcium 9.2 MG/DL (8.5-10.1); Thyroid Stimulating Hormone 2.01 uIU/ml (0.358-3.74)
[2020-04-03] MEDS: INSULIN REGULAR 100 UNIT/ML SUBCUT SCH ×4 (08:00→21:35)
[2020-04-03] MEDS: CITALOPRAM 20 MG TABLET PO SCH (08:34)
[2020-04-03] MEDS: SPIRONOLACTONE 25 MG TABLET PO SCH (08:34)
[2020-04-03] MEDS: LACTOBACILLUS ACIDOPHILUS/BULGARICUS CAPLET PO SCH ×3 (08:34→21:20)
[2020-04-03] MEDS: DOXYCYCLINE HYCLATE 100 MG CAPSULE PO SCH ×2 (08:34→21:20)
[2020-04-03] MEDS: guaiFENesin/DM ER 600-30 MG TABLET PO SCH ×2 (08:35→21:20)
[2020-04-03] MEDS: metOLazone 5 MG TABLET PO PRN (08:35)
[2020-04-03] MEDS: MULTIVITAMIN (CENTRUM) TABLET PO SCH (08:35)
[2020-04-03] MEDS: DOCUSATE SODIUM 100 MG CAPSULE PO SCH (08:35)
[2020-04-03] MEDS: FAMOTIDINE 20 MG TABLET PO SCH (08:36)
[2020-04-03] MEDS: METOPROLOL TARTRATE 50 MG TABLET PO SCH ×2 (08:36→21:21)
[2020-04-03] MEDS: amLODIPine 5 MG TABLET PO SCH (08:36)
[2020-04-03] MEDS: ursodioL 300 MG CAPSULE PO SCH ×2 (08:36→21:21)
[2020-04-03] MEDS: LOSARTAN 25 MG TABLET PO SCH (08:36)
[2020-04-03] MEDS: FUROSEMIDE 40 MG TABLET PO SCH ×2 (08:36→21:22)
[2020-04-03] MEDS: TOUJEO 300 UNIT/ML SUBCUT SCH (08:37)
[2020-04-03] MEDS: ISOSORBIDE MONONITRATE 60 MG TABLET PO SCH (08:39)
[2020-04-03] MEDS: CYANOCOBALAMIN 500 MCG TABLET PO SCH (08:57)
[2020-04-03] MEDS: APIXABAN 5 MG TABLET PO SCH ×2 (08:57→21:22)
[2020-04-03] MEDS: ASPIRIN EC 81 MG TABLET PO SCH (08:57)
[2020-04-03] MEDS: POLYETHYLENE GLYCOL POWDER 17 GM PACK PO SCH (09:02)
[2020-04-03] MEDS: GLIMEPIRIDE 2 MG TABLET PO SCH ×2 (09:26→16:14)
[2020-04-03] MEDS: cefTRIAXone 2,000 MG in SYRINGE 1 EACH IV SCH (17:34)
[2020-04-03] MEDS: ACETAMINOPHEN 325 MG TABLET PO PRN (19:28)
[2020-04-03] MEDS: GABAPENTIN 300 MG CAPSULE PO SCH (21:20)
[2020-04-03] MEDS: TAMSULOSIN 0.4 MG CAPSULE PO SCH (21:21)
[2020-04-03] MEDS: ROSUVASTATIN 10 MG TABLET PO SCH (21:21)
[2020-04-03] MEDS: MONTELUKAST 10 MG TABLET PO SCH (21:22)
[2020-04-03] MEDS: CHOLECALCIFEROL 1,000 UNIT TABLET PO SCH (21:45)
[2020-04-04] MEDS: ALBUTEROL/IPRATROPIUM 3 ML NEB RESP TX SCH ×5 (01:46→19:21)
[2020-04-04 06:19] LABS: Calcium 9.7 MG/DL (8.5-10.1); Osmolality,Calculated 274.2 MOS/KG (273-304)
[2020-04-04 06:48] LABS: Basophils % 0.3 % (0.0-0.8); Eosinophils # 0.1 10*3/uL (0.0-0.87); Eosinophils % 0.9 % (0.00-10.9); Hematocrit 27.7 VOL% (42.0-52.0); Hemoglobin 8.9 GM/DL (14.0-18.0); Immature Granulocytes % 0.8 %; Immature Granulocytes Absolute 0.09 #; Lymphocytes # 0.8 10*3/uL (1.4-4.0); Lymphocytes % 7.5 % (21.2-54.2); Mean Corpuscular HGB Conc 32.1 GM/DL (32-36); Mean Corpuscular Volume 89.1 FL (87-102); Mean Platelet Volume 10.1 FL (9.6-12.0); Monocytes % 10.9 % (1.7-12.7); Neutrophils % 79.6 % (38.7-73.9); Platelet Count 312 T/CUMM (130-400); Red Blood Count 3.11 MC/CUMM (3.8-5.5); Red Cell Distribution Width 14.6 % (9.3-17.3)
[2020-04-04 07:48] LABS: Calcium 9.5 MG/DL (8.5-10.1)
[2020-04-04 07:49] LABS: Osmolality,Calculated 274.2 MOS/KG (273-304)
[2020-04-04] MEDS: GLIMEPIRIDE 2 MG TABLET PO SCH ×2 (08:01→16:41)
[2020-04-04] MEDS: INSULIN REGULAR 100 UNIT/ML SUBCUT SCH ×4 (08:05→20:41)
[2020-04-04] MEDS: DICLOFENAC 1% GEL 100 GM TUBE TOP PRN (08:43)
[2020-04-04] MEDS: TOUJEO 300 UNIT/ML SUBCUT SCH (08:43)
[2020-04-04] MEDS: SPIRONOLACTONE 25 MG TABLET PO SCH (08:44)
[2020-04-04] MEDS: guaiFENesin/DM ER 600-30 MG TABLET PO SCH ×2 (08:44→20:43)
[2020-04-04] MEDS: CYANOCOBALAMIN 500 MCG TABLET PO SCH (08:45)
[2020-04-04] MEDS: ASPIRIN EC 81 MG TABLET PO SCH (08:45)
[2020-04-04] MEDS: DOCUSATE SODIUM 100 MG CAPSULE PO SCH (08:45)
[2020-04-04] MEDS: APIXABAN 5 MG TABLET PO SCH ×2 (08:45→20:42)
[2020-04-04] MEDS: FAMOTIDINE 20 MG TABLET PO SCH (08:45)
[2020-04-04] MEDS: CITALOPRAM 20 MG TABLET PO SCH (08:45)
[2020-04-04] MEDS: amLODIPine 5 MG TABLET PO SCH (08:46)
[2020-04-04] MEDS: ISOSORBIDE MONONITRATE 60 MG TABLET PO SCH (08:46)
[2020-04-04] MEDS: LACTOBACILLUS ACIDOPHILUS/BULGARICUS CAPLET PO SCH ×3 (08:46→20:39)
[2020-04-04] MEDS: METOPROLOL TARTRATE 50 MG TABLET PO SCH ×2 (08:46→20:42)
[2020-04-04] MEDS: DOXYCYCLINE HYCLATE 100 MG CAPSULE PO SCH ×2 (08:46→20:39)
[2020-04-04] MEDS: FUROSEMIDE 40 MG TABLET PO SCH ×2 (08:47→20:42)
[2020-04-04] MEDS: metOLazone 5 MG TABLET PO PRN (08:47)
[2020-04-04] MEDS: MULTIVITAMIN (CENTRUM) TABLET PO SCH (08:47)
[2020-04-04] MEDS: ursodioL 300 MG CAPSULE PO SCH ×2 (08:47→20:42)
[2020-04-04] MEDS: LOSARTAN 25 MG TABLET PO SCH (08:47)
[2020-04-04] MEDS: POLYETHYLENE GLYCOL POWDER 17 GM PACK PO SCH (09:56)
[2020-04-04] MEDS: ACETAMINOPHEN 325 MG TABLET PO PRN (18:31)
[2020-04-04] MEDS: cefTRIAXone 2,000 MG in SYRINGE 1 EACH IV SCH (18:37)
[2020-04-04] MEDS: CHOLECALCIFEROL 1,000 UNIT TABLET PO SCH (20:39)
[2020-04-04] MEDS: GABAPENTIN 300 MG CAPSULE PO SCH (20:39)
[2020-04-04] MEDS: MONTELUKAST 10 MG TABLET PO SCH (20:41)
[2020-04-04] MEDS: TAMSULOSIN 0.4 MG CAPSULE PO SCH (20:42)
[2020-04-04] MEDS: ROSUVASTATIN 10 MG TABLET PO SCH (20:43)
[2020-04-05] MEDS: ALBUTEROL/IPRATROPIUM 3 ML NEB RESP TX SCH ×2 (00:22→07:01)
[2020-04-05 05:11] LABS: Basophils % 0.4 % (0.0-0.8); Eosinophils # 0.1 10*3/uL (0.0-0.87); Eosinophils % 0.8 % (0.00-10.9); Hematocrit 29.1 VOL% (42.0-52.0); Hemoglobin 9.6 GM/DL (14.0-18.0); Immature Granulocytes % 0.8 %; Immature Granulocytes Absolute 0.09 #; Lymphocytes # 1.2 10*3/uL (1.4-4.0); Lymphocytes % 10.2 % (21.2-54.2); Mean Corpuscular Volume 87.1 FL (87-102); Mean Platelet Volume 9.7 FL (9.6-12.0); Neutrophils % 78.8 % (38.7-73.9); Platelet Count 360 T/CUMM (130-400); Red Blood Count 3.34 MC/CUMM (3.8-5.5); Red Cell Distribution Width 14.6 % (9.3-17.3); White Blood Count 11.3 T/CUMM (4-12)
[2020-04-05 05:30] LABS: Calcium 9.7 MG/DL (8.5-10.1); Osmolality,Calculated 276.2 MOS/KG (273-304)
[2020-04-05 05:48] LABS: Anisocytosis 1+; Band Neutrophils 2 % (0-10); Eosinophils 1 % (0-10); Lymphocytes 9 % (20-55); Platelet Estimate Normal; Segmented Neutrophils 77 % (50-85); Total Cells Counted 100
[2020-04-05 05:49] LABS: Macrocytosis Slight; Polychromasia Slight
[2020-04-05] MEDS: GLIMEPIRIDE 2 MG TABLET PO SCH (07:55)
[2020-04-05] MEDS: INSULIN REGULAR 100 UNIT/ML SUBCUT SCH ×2 (07:58→11:24)
[2020-04-05] MEDS: CYANOCOBALAMIN 500 MCG TABLET PO SCH (09:43)
[2020-04-05] MEDS: MULTIVITAMIN (CENTRUM) TABLET PO SCH (09:44)
[2020-04-05] MEDS: ursodioL 300 MG CAPSULE PO SCH (09:44)
[2020-04-05] MEDS: FAMOTIDINE 20 MG TABLET PO SCH (09:44)
[2020-04-05] MEDS: metOLazone 5 MG TABLET PO PRN (09:44)
[2020-04-05] MEDS: ASPIRIN EC 81 MG TABLET PO SCH (09:44)
[2020-04-05] MEDS: amLODIPine 5 MG TABLET PO SCH (09:44)
[2020-04-05] MEDS: LOSARTAN 25 MG TABLET PO SCH (09:44)
[2020-04-05] MEDS: METOPROLOL TARTRATE 50 MG TABLET PO SCH (09:44)
[2020-04-05] MEDS: guaiFENesin/DM ER 600-30 MG TABLET PO SCH (09:44)
[2020-04-05] MEDS: LACTOBACILLUS ACIDOPHILUS/BULGARICUS CAPLET PO SCH (09:44)
[2020-04-05] MEDS: FUROSEMIDE 40 MG TABLET PO SCH (09:45)
[2020-04-05] MEDS: DOCUSATE SODIUM 100 MG CAPSULE PO SCH (09:45)
[2020-04-05] MEDS: APIXABAN 5 MG TABLET PO SCH (09:45)
[2020-04-05] MEDS: DOXYCYCLINE HYCLATE 100 MG CAPSULE PO SCH (09:45)
[2020-04-05] MEDS: SPIRONOLACTONE 25 MG TABLET PO SCH (09:45)
[2020-04-05] MEDS: CITALOPRAM 20 MG TABLET PO SCH (09:45)
[2020-04-05] MEDS: TOUJEO 300 UNIT/ML SUBCUT SCH (09:48)
[2020-04-05] MEDS: DICLOFENAC 1% GEL 100 GM TUBE TOP PRN (09:48)
[2020-04-05] MEDS: POLYETHYLENE GLYCOL POWDER 17 GM PACK PO SCH (09:57)
[2020-04-05] MEDS: ISOSORBIDE MONONITRATE 60 MG TABLET PO SCH (09:57)
[2020-04-05 11:28] VITALS: BP 145/53
== END 2020-04-05 11:58 | disposition home or self-care (01) | DRG 194 ==
LOC: N.ED 15:09 → SUATTDRO 16:53 → N.EDINP 16:53 → N.3E 18:23
PROVIDERS: ADMIT Hospitalist; ATTEND Internal Medicine

== ENCOUNTER 2020-07-15 16:54 | Observation (INO) ==
[2020-07-15] MEDS ORDERED: DIPH/TET/ACEL PERT BOOSTER VACCINE 0.5 ML VIAL IM ONE (19:51)
[2020-07-15] MEDS ORDERED: ONDANSETRON 4 MG/2 ML VIAL IV STA (19:51)
[2020-07-15 20:57] LABS: Basophils % 0.4 % (0.0-0.8); Eosinophils # 0.1 10*3/uL (0.0-0.87); Eosinophils % 0.6 % (0.00-10.9); Hematocrit 36.4 VOL% (42.0-52.0); Hemoglobin 11.9 GM/DL (14.0-18.0); Immature Granulocytes % 0.7 %; Immature Granulocytes Absolute 0.08 #; Lymphocytes # 1.1 10*3/uL (1.4-4.0); Lymphocytes % 10.4 % (21.2-54.2); Mean Corpuscular HGB Conc 32.7 GM/DL (32-36); Mean Corpuscular Volume 93.6 FL (87-102); Mean Platelet Volume 12.1 FL (9.6-12.0); Monocytes % 10.6 % (1.7-12.7); Neutrophils % 77.3 % (38.7-73.9); Platelet Count 202 T/CUMM (130-400); Red Blood Count 3.89 MC/CUMM (3.8-5.5); Red Cell Distribution Width 15.4 % (9.3-17.3); White Blood Count 10.7 T/CUMM (4-12)
[2020-07-15 21:20] LABS: Alanine Aminotransferase 42 U/L (16-61); Albumin 3.5 G/DL (3.4-5.0); Alkaline Phosphatase 96 U/L (45-117); Amylase 67 U/L (25-115); Aspartate Amino Transferase 100 U/L (0-37); Blood Urea Nitrogen 29 MG/DL (7-18); Calcium 8.9 MG/DL (8.5-10.1); Carbon Dioxide 28 MMOL/L (21-32); Estimated Glom Filtration Rate 37 ML/MIN; Glucose 160 MG/DL (74-106); Osmolality,Calculated 274.4 MOS/KG (273-304); Potassium 5.9 MMOL/L (3.5-5.1); Sodium 133 MMOL/L (136-145); Total Protein 7.9 G/DL (6.4-8.3)
[2020-07-15] MEDS ORDERED: CALCIUM CHLORIDE 1,000 MG/10 ML SYRINGE IV STA (21:34)
[2020-07-15] MEDS ORDERED: SODIUM POLYSTYRENE SULFATE 15 GM/60 ML BOTTLE PO STA (21:34)
[2020-07-15] MEDS ORDERED: FUROSEMIDE 40 MG/4 ML VIAL IV STA (21:49)
[2020-07-16] MEDS ORDERED: GLUCAGON 1 MG VIAL IM PRN (00:24)
[2020-07-16] MEDS ORDERED: ONDANSETRON 4 MG/2 ML VIAL IV PRN (00:24)
[2020-07-16] MEDS ORDERED: DOCUSATE SODIUM 100 MG CAPSULE PO PRN (00:24)
[2020-07-16] MEDS ORDERED: DEXTROSE 50% 25 GM/50 ML VIAL IV PRN (00:24)
[2020-07-16] MEDS ORDERED: hydrALAZINE 20 MG/1 ML VIAL IV ONE (00:35)
[2020-07-16] MEDS ORDERED: hydrALAZINE 20 MG/1 ML VIAL IV PRN (00:35)
[2020-07-16] MEDS ORDERED: ALBUTEROL/IPRATROPIUM 3 ML NEB RESP TX PRN (01:16)
[2020-07-16] MEDS: ACETAMINOPHEN 325 MG TABLET PO PRN ×2 (03:01→08:43)
[2020-07-16 05:42] LABS: Basophils % 0.3 % (0.0-0.8); Eosinophils # 0.1 10*3/uL (0.0-0.87); Eosinophils % 0.8 % (0.00-10.9); Hemoglobin 10.5 GM/DL (14.0-18.0); Immature Granulocytes % 0.6 %; Immature Granulocytes Absolute 0.05 #; Lymphocytes # 0.8 10*3/uL (1.4-4.0); Lymphocytes % 8.7 % (21.2-54.2); Mean Corpuscular HGB Conc 31.8 GM/DL (32-36); Mean Platelet Volume 11.3 FL (9.6-12.0); Monocytes % 13.5 % (1.7-12.7); Neutrophils % 76.1 % (38.7-73.9); Platelet Count 174 T/CUMM (130-400); Red Blood Count 3.51 MC/CUMM (3.8-5.5); Red Cell Distribution Width 14.8 % (9.3-17.3); White Blood Count 8.8 T/CUMM (4-12)
[2020-07-16 06:16] LABS: Albumin 3.1 G/DL (3.4-5.0); Bilirubin,Total 0.7 MG/DL (0.2-1.0); Calcium 9.2 MG/DL (8.5-10.1); Potassium 3.1 MMOL/L (3.5-5.1); Total Protein 6.5 G/DL (6.4-8.3)
[2020-07-16] MEDS ORDERED: metOLazone 5 MG TABLET PO PRN (07:57)
[2020-07-16] MEDS ORDERED: POTASSIUM CHLORIDE 20 MEQ TABLET PO ONE ×2 (08:07→15:36)
[2020-07-16] MEDS: SPIRONOLACTONE 25 MG TABLET PO SCH (08:43)
[2020-07-16] MEDS: METOPROLOL TARTRATE 50 MG TABLET PO SCH ×2 (08:43→21:38)
[2020-07-16] MEDS: ASPIRIN EC 81 MG TABLET PO SCH (08:44)
[2020-07-16] MEDS: FUROSEMIDE 40 MG/4 ML VIAL IV SCH ×2 (08:44→17:54)
[2020-07-16] MEDS: ISOSORBIDE MONONITRATE 60 MG TABLET PO SCH (08:44)
[2020-07-16] MEDS: INSULIN LISPRO 100 UNIT/ML SUBCUT SCH ×4 (08:53→21:40)
[2020-07-16] MEDS: ACETAMINOPHEN 500 MG TABLET PO PRN ×2 (13:30→21:38)
[2020-07-16] MEDS ORDERED: ROSUVASTATIN 10 MG TABLET PO SCH (21:00)
[2020-07-16] MEDS: APIXABAN 5 MG TABLET PO SCH (21:38)
[2020-07-17] MEDS ORDERED: traZODone 50 MG TABLET PO PRN (01:04)
[2020-07-17 05:39] LABS: Basophils % 0.4 % (0.0-0.8); Eosinophils # 0.2 10*3/uL (0.0-0.87); Eosinophils % 1.5 % (0.00-10.9); Hematocrit 34.3 VOL% (42.0-52.0); Hemoglobin 10.9 GM/DL (14.0-18.0); Immature Granulocytes % 0.5 %; Immature Granulocytes Absolute 0.06 #; Lymphocytes % 8.4 % (21.2-54.2); Mean Corpuscular HGB Conc 31.8 GM/DL (32-36); Mean Corpuscular Volume 92.2 FL (87-102); Mean Platelet Volume 10.8 FL (9.6-12.0); Monocytes % 11.2 % (1.7-12.7); Platelet Count 217 T/CUMM (130-400); Red Blood Count 3.72 MC/CUMM (3.8-5.5); Red Cell Distribution Width 14.7 % (9.3-17.3); White Blood Count 11.3 T/CUMM (4-12)
[2020-07-17 06:12] LABS: Albumin 3.4 G/DL (3.4-5.0); Bilirubin,Total 0.8 MG/DL (0.2-1.0); Calcium 8.9 MG/DL (8.5-10.1); Osmolality,Calculated 281.4 MOS/KG (273-304); Potassium 3.3 MMOL/L (3.5-5.1)
[2020-07-17 08:19] VITALS: BP 181/87
[2020-07-17] MEDS: INSULIN LISPRO 100 UNIT/ML SUBCUT SCH (08:19)
[2020-07-17] MEDS: ASPIRIN EC 81 MG TABLET PO SCH (08:51)
[2020-07-17] MEDS: APIXABAN 5 MG TABLET PO SCH (08:51)
[2020-07-17] MEDS: FUROSEMIDE 40 MG/4 ML VIAL IV SCH (08:51)
[2020-07-17] MEDS: SPIRONOLACTONE 25 MG TABLET PO SCH (08:51)
[2020-07-17] MEDS: ISOSORBIDE MONONITRATE 60 MG TABLET PO SCH (08:51)
[2020-07-17] MEDS ORDERED: METOPROLOL TARTRATE 100 MG TABLET PO SCH (09:00)
[2020-07-18] MEDS ORDERED: LOSARTAN 25 MG TABLET PO SCH (09:00)
== END 2020-07-17 11:45 | disposition home health service (06) ==
LOC: N.EDINP 16:54 → N.ED 16:54 → N.EDINP 07-16 00:55 → N.TELEN 07-16 03:30
PROVIDERS: ADMIT Internal Medicine; ATTEND Internal Medicine

== ENCOUNTER 2020-08-05 23:34 | Observation (INO) ==
[2020-08-06 00:09] LABS: Basophils % 0.2 % (0.0-0.8); Eosinophils # 0.1 10*3/uL (0.0-0.87); Eosinophils % 1.2 % (0.00-10.9); Hematocrit 34.2 VOL% (42.0-52.0); Hemoglobin 10.7 GM/DL (14.0-18.0); Immature Granulocytes % 0.7 %; Immature Granulocytes Absolute 0.07 #; Lymphocytes # 0.7 10*3/uL (1.4-4.0); Lymphocytes % 7.6 % (21.2-54.2); Mean Corpuscular HGB Conc 31.3 GM/DL (32-36); Mean Corpuscular Volume 95.5 FL (87-102); Mean Platelet Volume 10.3 FL (9.6-12.0); Monocytes % 9.1 % (1.7-12.7); Neutrophils % 81.2 % (38.7-73.9); Platelet Count 167 T/CUMM (130-400); Red Blood Count 3.58 MC/CUMM (3.8-5.5); Red Cell Distribution Width 14.6 % (9.3-17.3); White Blood Count 9.6 T/CUMM (4-12)
[2020-08-06 00:23] LABS: Calcium 8.4 MG/DL (8.5-10.1); Osmolality,Calculated 287.8 MOS/KG (273-304); Potassium 4.2 MMOL/L (3.5-5.1)
[2020-08-06 00:31] LABS: INR 1.2; PT Patient Result 12.6 SECS (9.8-11.9); Partial Thromboplastin Time 32.3 SECS (23.9-33.8)
[2020-08-06] MEDS ORDERED: FUROSEMIDE 40 MG/4 ML VIAL IV STA (01:37)
[2020-08-06] MEDS ORDERED: NICOTINE 21 MG/24 HR PATCH TRANSDERM PRN (01:55)
[2020-08-06] MEDS ORDERED: ONDANSETRON 4 MG/2 ML VIAL IV PRN (01:55)
[2020-08-06] MEDS ORDERED: diphenhydrAMINE CAP 25 MG CAPSULE PO PRN (01:55)
[2020-08-06] MEDS ORDERED: ACETAMINOPHEN 325 MG TABLET PO PRN ×2 (01:55→13:43)
[2020-08-06] MEDS ORDERED: guaiFENesin/DM ER 600-30 MG TABLET PO PRN (01:55)
[2020-08-06] MEDS ORDERED: CALCIUM CARBONATE CHEW 500 MG TABLET PO PRN (01:55)
[2020-08-06] MEDS ORDERED: GLUCAGON 1 MG VIAL IM PRN (01:55)
[2020-08-06] MEDS ORDERED: DEXTROSE 50% 25 GM/50 ML VIAL IV PRN (01:55)
[2020-08-06] MEDS: hydrALAZINE 20 MG/1 ML VIAL IV PRN ×2 (03:45→08:08)
[2020-08-06] MEDS: INSULIN REGULAR 100 UNIT/ML SUBCUT SCH ×4 (07:43→21:53)
[2020-08-06] MEDS: FUROSEMIDE 40 MG/4 ML VIAL IV SCH ×2 (08:08→16:59)
[2020-08-06] MEDS ORDERED: ALBUTEROL/IPRATROPIUM 3 ML NEB RESP TX PRN (13:42)
[2020-08-06] MEDS ORDERED: metOLazone 5 MG TABLET PO PRN (13:43)
[2020-08-06] MEDS ORDERED: NITROGLYCERIN SL 0.4 MG TABLET SL PRN (13:43)
[2020-08-06] MEDS ORDERED: DICLOFENAC 1% GEL 100 GM TUBE TOP PRN (13:43)
[2020-08-06] MEDS: methylPREDNISolone SOD SUC 40 MG/1 ML VIAL IV SCH (13:51)
[2020-08-06] MEDS: FERROUS SULFATE 325 MG TABLET PO SCH ×2 (14:56→21:52)
[2020-08-06] MEDS ORDERED: METOPROLOL TARTRATE 25 MG TABLET PO STA (15:03)
[2020-08-06] MEDS ORDERED: METOPROLOL SUCCINATE XL 25 MG TABLET PO ONE (15:11)
[2020-08-06] MEDS ORDERED: CHOLECALCIFEROL 1,000 UNIT TABLET PO SCH (19:00)
[2020-08-06] MEDS: TAMSULOSIN 0.4 MG CAPSULE PO SCH (21:51)
[2020-08-06] MEDS: CHOLECALCIFEROL 1,000 UNIT TABLET PO SCH (21:51)
[2020-08-06] MEDS: METOPROLOL TARTRATE 50 MG TABLET PO SCH (21:51)
[2020-08-06] MEDS: APIXABAN 5 MG TABLET PO SCH (21:51)
[2020-08-06] MEDS: traZODone 50 MG TABLET PO SCH (21:52)
[2020-08-06] MEDS: MONTELUKAST 10 MG TABLET PO SCH (21:52)
[2020-08-06] MEDS: GABAPENTIN 300 MG CAPSULE PO SCH (21:52)
[2020-08-06] MEDS: ROSUVASTATIN 10 MG TABLET PO SCH (21:52)
[2020-08-07] MEDS: methylPREDNISolone SOD SUC 40 MG/1 ML VIAL IV SCH ×2 (02:54→13:21)
[2020-08-07 06:29] LABS: Basophils % 0.1 % (0.0-0.8); Hematocrit 35.4 VOL% (42.0-52.0); Hemoglobin 11.2 GM/DL (14.0-18.0); Immature Granulocytes % 0.6 %; Immature Granulocytes Absolute 0.06 #; Lymphocytes # 0.3 10*3/uL (1.4-4.0); Mean Corpuscular HGB Conc 31.6 GM/DL (32-36); Mean Corpuscular Volume 93.9 FL (87-102); Mean Platelet Volume 10.9 FL (9.6-12.0); Monocytes % 3.4 % (1.7-12.7); Neutrophils % 92.9 % (38.7-73.9); Platelet Count 174 T/CUMM (130-400); Red Blood Count 3.77 MC/CUMM (3.8-5.5); Red Cell Distribution Width 14.2 % (9.3-17.3); White Blood Count 10.3 T/CUMM (4-12)
[2020-08-07] MEDS: ALBUTEROL/IPRATROPIUM 3 ML NEB RESP TX SCH ×4 (06:39→20:09)
[2020-08-07 06:48] LABS: Calcium 8.9 MG/DL (8.5-10.1); Osmolality,Calculated 280.4 MOS/KG (273-304); Potassium 4.1 MMOL/L (3.5-5.1)
[2020-08-07 06:53] LABS: Hypochromasia Slight; Lymphocytes 2 % (20-55); Microcytosis Slight; Platelet Estimate Adequate; Segmented Neutrophils 95 % (50-85); Total Cells Counted 100
[2020-08-07] MEDS: INSULIN REGULAR 100 UNIT/ML SUBCUT SCH ×4 (08:27→22:00)
[2020-08-07] MEDS ORDERED: ISOSORBIDE MONONITRATE 60 MG TABLET PO SCH (09:00)
[2020-08-07] MEDS ORDERED: INSULIN GLARGINE 100 UNIT/ML SUBCUT SCH (09:00)
[2020-08-07] MEDS ORDERED: ASPIRIN EC 81 MG TABLET PO SCH (09:00)
[2020-08-07] MEDS ORDERED: CYANOCOBALAMIN 500 MCG TABLET PO SCH (09:00)
[2020-08-07] MEDS: SPIRONOLACTONE 25 MG TABLET PO SCH (09:31)
[2020-08-07] MEDS: APIXABAN 5 MG TABLET PO SCH ×2 (09:31→21:58)
[2020-08-07] MEDS: METOPROLOL TARTRATE 50 MG TABLET PO SCH (09:32)
[2020-08-07] MEDS: CITALOPRAM 20 MG TABLET PO SCH (09:32)
[2020-08-07] MEDS: ursodioL 300 MG CAPSULE PO SCH ×2 (09:32→21:53)
[2020-08-07] MEDS: DOCUSATE SODIUM 100 MG CAPSULE PO SCH ×2 (09:32→21:56)
[2020-08-07] MEDS: ISOSORBIDE MONONITRATE 60 MG TABLET PO SCH (09:32)
[2020-08-07] MEDS: FERROUS SULFATE 325 MG TABLET PO SCH ×3 (09:32→21:55)
[2020-08-07] MEDS: FUROSEMIDE 40 MG/4 ML VIAL IV SCH ×2 (09:32→15:28)
[2020-08-07] MEDS: CYANOCOBALAMIN 500 MCG TABLET PO SCH (09:32)
[2020-08-07] MEDS: FAMOTIDINE 20 MG TABLET PO SCH (09:32)
[2020-08-07] MEDS: ASPIRIN EC 81 MG TABLET PO SCH (09:32)
[2020-08-07] MEDS: GLIMEPIRIDE 2 MG TABLET PO SCH (17:01)
[2020-08-07] MEDS: DOXYCYCLINE HYCLATE 100 MG CAPSULE PO SCH (17:14)
[2020-08-07] MEDS: GABAPENTIN 300 MG CAPSULE PO SCH (21:52)
[2020-08-07] MEDS: METOPROLOL TARTRATE 100 MG TABLET PO SCH (21:53)
[2020-08-07] MEDS: CHOLECALCIFEROL 1,000 UNIT TABLET PO SCH (21:54)
[2020-08-07] MEDS: TAMSULOSIN 0.4 MG CAPSULE PO SCH (21:56)
[2020-08-07] MEDS: ROSUVASTATIN 10 MG TABLET PO SCH (21:57)
[2020-08-07] MEDS: MONTELUKAST 10 MG TABLET PO SCH (21:58)
[2020-08-07] MEDS: traZODone 50 MG TABLET PO SCH (23:11)
[2020-08-08] MEDS: traZODone 50 MG TABLET PO SCH (00:21)
[2020-08-08] MEDS: ALBUTEROL/IPRATROPIUM 3 ML NEB RESP TX SCH ×2 (00:51→07:45)
[2020-08-08 06:36] LABS: Hemoglobin 11.5 GM/DL (14.0-18.0); Immature Granulocytes % 0.8 %; Immature Granulocytes Absolute 0.16 #; Lymphocytes # 0.8 10*3/uL (1.4-4.0); Lymphocytes % 4.1 % (21.2-54.2); Mean Corpuscular HGB Conc 31.9 GM/DL (32-36); Mean Corpuscular Volume 92.5 FL (87-102); Mean Platelet Volume 10.7 FL (9.6-12.0); Monocytes % 7.7 % (1.7-12.7); Neutrophils % 87.4 % (38.7-73.9); Platelet Count 223 T/CUMM (130-400); Red Blood Count 3.89 MC/CUMM (3.8-5.5); Red Cell Distribution Width 14.1 % (9.3-17.3); White Blood Count 20.5 T/CUMM (4-12)
[2020-08-08 06:52] LABS: Calcium 9.3 MG/DL (8.5-10.1); Osmolality,Calculated 271.7 MOS/KG (273-304); Potassium 3.7 MMOL/L (3.5-5.1)
[2020-08-08 06:57] LABS: Risk Ratio 2.2; VLDL CHOLESTEROL 27.2 MG/DL
[2020-08-08 06:59] LABS: Lymphocytes 5 % (20-55); Platelet Estimate Adequate; Segmented Neutrophils 90 % (50-85); Total Cells Counted 100
[2020-08-08] MEDS: APIXABAN 5 MG TABLET PO SCH (08:15)
[2020-08-08] MEDS: ursodioL 300 MG CAPSULE PO SCH (08:15)
[2020-08-08] MEDS: CYANOCOBALAMIN 500 MCG TABLET PO SCH (08:15)
[2020-08-08] MEDS: GLIMEPIRIDE 2 MG TABLET PO SCH (08:15)
[2020-08-08] MEDS: DOCUSATE SODIUM 100 MG CAPSULE PO SCH (08:15)
[2020-08-08] MEDS: ASPIRIN EC 81 MG TABLET PO SCH (08:15)
[2020-08-08] MEDS: METOPROLOL TARTRATE 100 MG TABLET PO SCH (08:15)
[2020-08-08] MEDS: DOXYCYCLINE HYCLATE 100 MG CAPSULE PO SCH (08:15)
[2020-08-08] MEDS: ISOSORBIDE MONONITRATE 60 MG TABLET PO SCH (08:16)
[2020-08-08] MEDS: SPIRONOLACTONE 25 MG TABLET PO SCH (08:16)
[2020-08-08] MEDS: FERROUS SULFATE 325 MG TABLET PO SCH (08:16)
[2020-08-08] MEDS: CITALOPRAM 20 MG TABLET PO SCH (08:16)
[2020-08-08] MEDS: FAMOTIDINE 20 MG TABLET PO SCH (08:16)
[2020-08-08] MEDS: hydrALAZINE 20 MG/1 ML VIAL IV PRN (08:17)
[2020-08-08] MEDS: FUROSEMIDE 40 MG/4 ML VIAL IV SCH (08:19)
[2020-08-08] MEDS: INSULIN REGULAR 100 UNIT/ML SUBCUT SCH ×2 (08:26→12:43)
[2020-08-08] MEDS ORDERED: predniSONE 20 MG TABLET PO SCH (09:00)
[2020-08-08] MEDS ORDERED: INSULIN GLARGINE U SUBCUT SCH (09:00)
[2020-08-08 12:19] VITALS: BP 134/77
== END 2020-08-08 12:57 | disposition home or self-care (01) ==
LOC: N.ED 23:34 → N.EDINP 23:34 → N.TELEN 08-06 16:02
PROVIDERS: ADMIT Internal Medicine; ATTEND Internal Medicine

== ENCOUNTER 2020-10-23 09:11 | Inpatient (IN) ==
[2020-10-23] MEDS ORDERED: ONDANSETRON 4 MG/2 ML VIAL IV PRN (10:45)
[2020-10-23] MEDS ORDERED: ALBUTEROL 2.5 MG/3 ML NEB RESP TX PRN (10:45)
[2020-10-23] MEDS ORDERED: GLUCAGON 1 MG VIAL IM PRN (10:45)
[2020-10-23] MEDS ORDERED: BISACODYL 5 MG TABLET PO PRN (10:45)
[2020-10-23] MEDS ORDERED: DEXTROSE 50% 25 GM/50 ML VIAL IV PRN (10:45)
[2020-10-23] MEDS ORDERED: ACETAMINOPHEN 325 MG TABLET PO PRN (10:45)
[2020-10-23 11:23] LABS: Basophils % 0.2 % (0.0-0.8); Eosinophils % 0.1 % (0.00-10.9); Hematocrit 30.2 VOL% (42.0-52.0); Hemoglobin 9.9 GM/DL (14.0-18.0); Immature Granulocytes % 0.6 %; Immature Granulocytes Absolute 0.06 #; Lymphocytes # 0.6 10*3/uL (1.4-4.0); Lymphocytes % 5.6 % (21.2-54.2); Mean Corpuscular HGB Conc 32.8 GM/DL (32-36); Mean Corpuscular Volume 90.1 FL (87-102); Mean Platelet Volume 10.9 FL (9.6-12.0); Monocytes % 8.3 % (1.7-12.7); Neutrophils % 85.2 % (38.7-73.9); Platelet Count 173 T/CUMM (130-400); Red Blood Count 3.35 MC/CUMM (3.8-5.5); Red Cell Distribution Width 15.3 % (9.3-17.3); White Blood Count 10.9 T/CUMM (4-12)
[2020-10-23 11:44] LABS: Albumin 2.9 G/DL (3.4-5.0); Bilirubin,Total 0.8 MG/DL (0.2-1.0); Calcium 8.8 MG/DL (8.5-10.1); Osmolality,Calculated 286.7 MOS/KG (273-304); Potassium 3.4 MMOL/L (3.5-5.1); Total Protein 6.4 G/DL (6.4-8.2)
[2020-10-23] MEDS ORDERED: ENOXAPARIN 30 MG/0.3 ML SYRINGE SUBCUT SCH (12:00)
[2020-10-23] MEDS: PIPERACILLIN/TAZOBACTAM 3,375 MG in SODIUM CHLORIDE 0.9% 100 ML IV SCH ×2 (12:12→21:00)
[2020-10-23] MEDS: INSULIN LISPRO 100 UNIT/ML SUBCUT SCH ×3 (12:25→20:52)
[2020-10-23 16:10] LABS: Basophils % 0.3 % (0.0-0.8); Eosinophils # 0.1 10*3/uL (0.0-0.87); Eosinophils % 0.5 % (0.00-10.9); Hematocrit 32.8 VOL% (42.0-52.0); Hemoglobin 10.1 GM/DL (14.0-18.0); Immature Granulocytes % 0.6 %; Immature Granulocytes Absolute 0.06 #; Lymphocytes # 0.8 10*3/uL (1.4-4.0); Lymphocytes % 7.5 % (21.2-54.2); Mean Corpuscular HGB Conc 30.8 GM/DL (32-36); Mean Corpuscular Volume 93.7 FL (87-102); Monocytes % 7.2 % (1.7-12.7); Neutrophils % 83.9 % (38.7-73.9); Platelet Count 198 T/CUMM (130-400); Red Cell Distribution Width 15.4 % (9.3-17.3); White Blood Count 10.7 T/CUMM (4-12)
[2020-10-23] MEDS: VANCOMYCIN INJ 1,250 MG in SODIUM CHLORIDE 0.9% 250 ML IV SCH (17:02)
[2020-10-23] MEDS: FUROSEMIDE 40 MG TABLET PO SCH (17:05)
[2020-10-23] MEDS: FERROUS SULFATE 325 MG TABLET PO SCH ×2 (17:05→20:54)
[2020-10-23] MEDS ORDERED: ALBUTEROL/IPRATROPIUM 3 ML NEB RESP TX PRN (18:37)
[2020-10-23] MEDS: APIXABAN 5 MG TABLET PO SCH (20:53)
[2020-10-23] MEDS: TAMSULOSIN 0.4 MG CAPSULE PO SCH (20:54)
[2020-10-23] MEDS: ursodioL 300 MG CAPSULE PO SCH (20:54)
[2020-10-23] MEDS: METOPROLOL TARTRATE 100 MG TABLET PO SCH (20:54)
[2020-10-23] MEDS: GABAPENTIN 300 MG CAPSULE PO SCH (20:54)
[2020-10-23] MEDS: traZODone 50 MG TABLET PO SCH (20:54)
[2020-10-23] MEDS: DOCUSATE SODIUM 100 MG CAPSULE PO SCH (20:54)
[2020-10-23] MEDS: ROSUVASTATIN 10 MG TABLET PO SCH (20:54)
[2020-10-23] MEDS: MONTELUKAST 10 MG TABLET PO SCH (20:55)
[2020-10-23] MEDS: CHOLECALCIFEROL 1,000 UNIT TABLET PO SCH (20:55)
[2020-10-23] MEDS ORDERED: INSULIN GLARGINE 100 UNIT/ML SUBCUT SCH (21:00)
[2020-10-24] MEDS: PIPERACILLIN/TAZOBACTAM 3,375 MG in SODIUM CHLORIDE 0.9% 100 ML IV SCH ×3 (04:27→20:50)
[2020-10-24 05:17] LABS: Basophils % 0.3 % (0.0-0.8); Eosinophils # 0.1 10*3/uL (0.0-0.87); Eosinophils % 0.4 % (0.00-10.9); Hematocrit 32.3 VOL% (42.0-52.0); Hemoglobin 9.8 GM/DL (14.0-18.0); Immature Granulocytes % 0.5 %; Immature Granulocytes Absolute 0.06 #; Lymphocytes # 0.9 10*3/uL (1.4-4.0); Lymphocytes % 7.3 % (21.2-54.2); Mean Corpuscular HGB Conc 30.3 GM/DL (32-36); Mean Corpuscular Volume 94.7 FL (87-102); Monocytes % 8.3 % (1.7-12.7); Neutrophils % 83.2 % (38.7-73.9); Platelet Count 191 T/CUMM (130-400); Red Blood Count 3.41 MC/CUMM (3.8-5.5); Red Cell Distribution Width 15.4 % (9.3-17.3); White Blood Count 11.6 T/CUMM (4-12)
[2020-10-24 05:32] LABS: Calcium 8.8 MG/DL (8.5-10.1); Osmolality,Calculated 285.3 MOS/KG (273-304); Potassium 3.2 MMOL/L (3.5-5.1)
[2020-10-24 05:44] LABS: Risk Ratio 2.35; VLDL CHOLESTEROL 12.4 MG/DL
[2020-10-24] MEDS: TOUJEO INSULIN SUBCUT SCH ×3 (06:17→08:50)
[2020-10-24 06:19] LABS: Sedimentation Rate-Westergren 56 MM/HR (0-20)
[2020-10-24] MEDS: INSULIN LISPRO 100 UNIT/ML SUBCUT SCH ×4 (07:40→20:55)
[2020-10-24] MEDS: CYANOCOBALAMIN 500 MCG TABLET PO SCH ×2 (07:44→08:51)
[2020-10-24] MEDS: DOCUSATE SODIUM 100 MG CAPSULE PO SCH ×3 (07:44→20:52)
[2020-10-24] MEDS: FAMOTIDINE 20 MG TABLET PO SCH ×2 (07:44→08:51)
[2020-10-24] MEDS: SPIRONOLACTONE 25 MG TABLET PO SCH ×2 (07:44→08:49)
[2020-10-24] MEDS: CITALOPRAM 20 MG TABLET PO SCH ×2 (07:47→08:49)
[2020-10-24] MEDS: FUROSEMIDE 40 MG TABLET PO SCH ×2 (07:47→15:28)
[2020-10-24] MEDS: ASPIRIN EC 81 MG TABLET PO SCH ×2 (07:48→08:49)
[2020-10-24] MEDS: APIXABAN 5 MG TABLET PO SCH ×3 (07:48→20:53)
[2020-10-24] MEDS: METOPROLOL TARTRATE 100 MG TABLET PO SCH ×3 (07:48→20:53)
[2020-10-24] MEDS: ursodioL 300 MG CAPSULE PO SCH ×3 (07:48→20:52)
[2020-10-24] MEDS: ISOSORBIDE MONONITRATE 60 MG TABLET PO SCH ×2 (07:48→08:50)
[2020-10-24] MEDS: FERROUS SULFATE 325 MG TABLET PO SCH ×4 (07:48→20:53)
[2020-10-24] MEDS: VANCOMYCIN INJ 1,250 MG in SODIUM CHLORIDE 0.9% 250 ML IV SCH (07:54)
[2020-10-24] MEDS: POTASSIUM CHLORIDE 20 MEQ TABLET PO PRN ×4 (09:04→18:16)
[2020-10-24] MEDS: MORPHINE 4 MG/1 ML VIAL IV PRN ×3 (09:05→19:28)
[2020-10-24] MEDS: ROSUVASTATIN 10 MG TABLET PO SCH (20:52)
[2020-10-24] MEDS: traZODone 50 MG TABLET PO SCH (20:53)
[2020-10-24] MEDS: TAMSULOSIN 0.4 MG CAPSULE PO SCH (20:53)
[2020-10-24] MEDS: CHOLECALCIFEROL 1,000 UNIT TABLET PO SCH (20:53)
[2020-10-24] MEDS: MONTELUKAST 10 MG TABLET PO SCH (20:53)
[2020-10-24] MEDS: GABAPENTIN 300 MG CAPSULE PO SCH (20:53)
[2020-10-25] MEDS: VANCOMYCIN INJ 1,250 MG in SODIUM CHLORIDE 0.9% 250 ML IV SCH ×2 (01:02→22:02)
[2020-10-25] MEDS: PIPERACILLIN/TAZOBACTAM 3,375 MG in SODIUM CHLORIDE 0.9% 100 ML IV SCH ×3 (04:40→21:04)
[2020-10-25 05:42] LABS: Basophils % 0.3 % (0.0-0.8); Eosinophils # 0.2 10*3/uL (0.0-0.87); Eosinophils % 2.2 % (0.00-10.9); Hematocrit 32.5 VOL% (42.0-52.0); Hemoglobin 9.9 GM/DL (14.0-18.0); Immature Granulocytes % 0.6 %; Immature Granulocytes Absolute 0.06 #; Lymphocytes # 0.9 10*3/uL (1.4-4.0); Lymphocytes % 9.8 % (21.2-54.2); Mean Corpuscular HGB Conc 30.5 GM/DL (32-36); Mean Corpuscular Volume 94.5 FL (87-102); Mean Platelet Volume 10.8 FL (9.6-12.0); Monocytes % 10.5 % (1.7-12.7); Neutrophils % 76.6 % (38.7-73.9); Platelet Count 171 T/CUMM (130-400); Red Blood Count 3.44 MC/CUMM (3.8-5.5); Red Cell Distribution Width 15.4 % (9.3-17.3); White Blood Count 9.6 T/CUMM (4-12)
[2020-10-25 06:12] LABS: Calcium 8.7 MG/DL (8.5-10.1); Osmolality,Calculated 285.4 MOS/KG (273-304); Potassium 3.9 MMOL/L (3.5-5.1)
[2020-10-25] MEDS: INSULIN LISPRO 100 UNIT/ML SUBCUT SCH ×4 (08:23→20:18)
[2020-10-25] MEDS: CYANOCOBALAMIN 500 MCG TABLET PO SCH (10:35)
[2020-10-25] MEDS: ISOSORBIDE MONONITRATE 60 MG TABLET PO SCH (10:36)
[2020-10-25] MEDS: DOCUSATE SODIUM 100 MG CAPSULE PO SCH ×2 (10:37→21:05)
[2020-10-25] MEDS: ASPIRIN EC 81 MG TABLET PO SCH (10:37)
[2020-10-25] MEDS: FUROSEMIDE 40 MG TABLET PO SCH ×2 (10:37→15:54)
[2020-10-25] MEDS: METOPROLOL TARTRATE 100 MG TABLET PO SCH ×2 (10:38→21:03)
[2020-10-25] MEDS: CITALOPRAM 20 MG TABLET PO SCH (10:38)
[2020-10-25] MEDS: FAMOTIDINE 20 MG TABLET PO SCH (10:38)
[2020-10-25] MEDS: FERROUS SULFATE 325 MG TABLET PO SCH ×3 (10:38→21:03)
[2020-10-25] MEDS: APIXABAN 5 MG TABLET PO SCH ×2 (10:38→21:03)
[2020-10-25] MEDS: TOUJEO INSULIN SUBCUT SCH (10:39)
[2020-10-25] MEDS: ursodioL 300 MG CAPSULE PO SCH ×2 (10:42→21:03)
[2020-10-25] MEDS: SPIRONOLACTONE 25 MG TABLET PO SCH (10:43)
[2020-10-25] MEDS: ROSUVASTATIN 10 MG TABLET PO SCH (21:03)
[2020-10-25] MEDS: CHOLECALCIFEROL 1,000 UNIT TABLET PO SCH (21:03)
[2020-10-25] MEDS: GABAPENTIN 300 MG CAPSULE PO SCH (21:03)
[2020-10-25] MEDS: TAMSULOSIN 0.4 MG CAPSULE PO SCH (21:03)
[2020-10-25] MEDS: traZODone 50 MG TABLET PO SCH (21:05)
[2020-10-25] MEDS: MONTELUKAST 10 MG TABLET PO SCH (21:05)
[2020-10-25] MEDS: MORPHINE 4 MG/1 ML VIAL IV PRN (21:17)
[2020-10-26] MEDS: PIPERACILLIN/TAZOBACTAM 3,375 MG in SODIUM CHLORIDE 0.9% 100 ML IV SCH ×3 (04:25→20:49)
[2020-10-26 06:08] LABS: Basophils % 0.3 % (0.0-0.8); Eosinophils # 0.4 10*3/uL (0.0-0.87); Eosinophils % 3.9 % (0.00-10.9); Hematocrit 33.2 VOL% (42.0-52.0); Immature Granulocytes % 0.8 %; Immature Granulocytes Absolute 0.07 #; Lymphocytes # 0.9 10*3/uL (1.4-4.0); Lymphocytes % 9.7 % (21.2-54.2); Mean Corpuscular HGB Conc 30.1 GM/DL (32-36); Mean Corpuscular Volume 95.1 FL (87-102); Mean Platelet Volume 11.1 FL (9.6-12.0); Monocytes % 10.9 % (1.7-12.7); NRBC # 0.02 10*3/uL; Neutrophils % 74.4 % (38.7-73.9); Platelet Count 190 T/CUMM (130-400); Red Blood Count 3.49 MC/CUMM (3.8-5.5); Red Cell Distribution Width 15.5 % (9.3-17.3)
[2020-10-26] MEDS: LOPERAMIDE 2 MG CAPSULE PO PRN ×2 (06:10→10:00)
[2020-10-26 06:22] LABS: Calcium 8.7 MG/DL (8.5-10.1); Osmolality,Calculated 284.3 MOS/KG (273-304); Potassium 3.1 MMOL/L (3.5-5.1)
[2020-10-26] MEDS: INSULIN LISPRO 100 UNIT/ML SUBCUT SCH ×4 (08:03→21:03)
[2020-10-26] MEDS: CITALOPRAM 20 MG TABLET PO SCH (10:01)
[2020-10-26] MEDS: APIXABAN 5 MG TABLET PO SCH ×2 (10:01→20:45)
[2020-10-26] MEDS: FERROUS SULFATE 325 MG TABLET PO SCH ×3 (10:01→20:45)
[2020-10-26] MEDS: ISOSORBIDE MONONITRATE 60 MG TABLET PO SCH (10:01)
[2020-10-26] MEDS: TOUJEO INSULIN SUBCUT SCH (10:01)
[2020-10-26] MEDS: FUROSEMIDE 40 MG TABLET PO SCH ×2 (10:02→15:37)
[2020-10-26] MEDS: DOCUSATE SODIUM 100 MG CAPSULE PO SCH ×2 (10:02→20:45)
[2020-10-26] MEDS: SPIRONOLACTONE 25 MG TABLET PO SCH (10:03)
[2020-10-26] MEDS: CYANOCOBALAMIN 500 MCG TABLET PO SCH (10:03)
[2020-10-26] MEDS: ursodioL 300 MG CAPSULE PO SCH ×2 (10:04→20:44)
[2020-10-26] MEDS: METOPROLOL TARTRATE 100 MG TABLET PO SCH ×2 (10:04→20:46)
[2020-10-26] MEDS: ASPIRIN EC 81 MG TABLET PO SCH (10:04)
[2020-10-26] MEDS: FAMOTIDINE 20 MG TABLET PO SCH (10:04)
[2020-10-26] MEDS: POTASSIUM CHLORIDE 20 MEQ TABLET PO PRN ×4 (10:45→20:46)
[2020-10-26] MEDS: VANCOMYCIN INJ 1,250 MG in SODIUM CHLORIDE 0.9% 250 ML IV SCH (12:21)
[2020-10-26] MEDS ORDERED: DEXTROSE 50% 25 GM/50 ML VIAL IV PRN (13:04)
[2020-10-26] MEDS: MORPHINE 4 MG/1 ML VIAL IV PRN (15:36)
[2020-10-26] MEDS ORDERED: hydrALAZINE 20 MG/1 ML VIAL IV PRN (17:09)
[2020-10-26] MEDS: TAMSULOSIN 0.4 MG CAPSULE PO SCH (20:44)
[2020-10-26] MEDS: MONTELUKAST 10 MG TABLET PO SCH (20:44)
[2020-10-26] MEDS: ROSUVASTATIN 10 MG TABLET PO SCH (20:44)
[2020-10-26] MEDS: traZODone 50 MG TABLET PO SCH (20:45)
[2020-10-26] MEDS: GABAPENTIN 300 MG CAPSULE PO SCH (20:45)
[2020-10-26] MEDS: CHOLECALCIFEROL 1,000 UNIT TABLET PO SCH (20:45)
[2020-10-27] MEDS: LOPERAMIDE 2 MG CAPSULE PO PRN ×2 (00:08→10:39)
[2020-10-27] MEDS: PIPERACILLIN/TAZOBACTAM 3,375 MG in SODIUM CHLORIDE 0.9% 100 ML IV SCH ×3 (04:05→20:36)
[2020-10-27 06:10] LABS: Basophils % 0.5 % (0.0-0.8); Eosinophils # 0.3 10*3/uL (0.0-0.87); Eosinophils % 3.4 % (0.00-10.9); Hematocrit 30.4 VOL% (42.0-52.0); Hemoglobin 9.7 GM/DL (14.0-18.0); Immature Granulocytes % 0.8 %; Immature Granulocytes Absolute 0.07 #; Lymphocytes # 0.7 10*3/uL (1.4-4.0); Lymphocytes % 8.3 % (21.2-54.2); Mean Corpuscular HGB Conc 31.9 GM/DL (32-36); Mean Platelet Volume 11.2 FL (9.6-12.0); Monocytes % 10.8 % (1.7-12.7); Neutrophils % 76.2 % (38.7-73.9); Platelet Count 169 T/CUMM (130-400); Red Blood Count 3.27 MC/CUMM (3.8-5.5); Red Cell Distribution Width 15.4 % (9.3-17.3); White Blood Count 8.4 T/CUMM (4-12)
[2020-10-27 06:23] LABS: Calcium 8.7 MG/DL (8.5-10.1); Osmolality,Calculated 285.4 MOS/KG (273-304); Potassium 3.5 MMOL/L (3.5-5.1)
[2020-10-27] MEDS: ASPIRIN EC 81 MG TABLET PO SCH (10:37)
[2020-10-27] MEDS: ursodioL 300 MG CAPSULE PO SCH ×2 (10:37→20:35)
[2020-10-27] MEDS: SPIRONOLACTONE 25 MG TABLET PO SCH (10:38)
[2020-10-27] MEDS: FUROSEMIDE 40 MG TABLET PO SCH ×2 (10:38→15:20)
[2020-10-27] MEDS: FAMOTIDINE 20 MG TABLET PO SCH (10:39)
[2020-10-27] MEDS: APIXABAN 5 MG TABLET PO SCH ×2 (10:39→20:35)
[2020-10-27] MEDS: METOPROLOL TARTRATE 100 MG TABLET PO SCH ×2 (10:39→20:36)
[2020-10-27] MEDS: CITALOPRAM 20 MG TABLET PO SCH (10:39)
[2020-10-27] MEDS: ISOSORBIDE MONONITRATE 60 MG TABLET PO SCH (10:39)
[2020-10-27] MEDS: CYANOCOBALAMIN 500 MCG TABLET PO SCH (10:40)
[2020-10-27] MEDS: TOUJEO INSULIN SUBCUT SCH (10:42)
[2020-10-27] MEDS: DOCUSATE SODIUM 100 MG CAPSULE PO SCH ×3 (10:43→21:13)
[2020-10-27] MEDS: FERROUS SULFATE 325 MG TABLET PO SCH ×4 (10:45→21:12)
[2020-10-27] MEDS: INSULIN LISPRO 100 UNIT/ML SUBCUT SCH ×4 (11:19→20:38)
[2020-10-27] MEDS: VANCOMYCIN INJ 1,250 MG in SODIUM CHLORIDE 0.9% 250 ML IV SCH (12:33)
[2020-10-27] MEDS: MORPHINE 4 MG/1 ML VIAL IV PRN ×2 (15:21→20:49)
[2020-10-27] MEDS: TAMSULOSIN 0.4 MG CAPSULE PO SCH (20:32)
[2020-10-27] MEDS: MONTELUKAST 10 MG TABLET PO SCH (20:32)
[2020-10-27] MEDS: CHOLECALCIFEROL 1,000 UNIT TABLET PO SCH (20:33)
[2020-10-27] MEDS: ROSUVASTATIN 10 MG TABLET PO SCH (20:33)
[2020-10-27] MEDS: GABAPENTIN 300 MG CAPSULE PO SCH (20:36)
[2020-10-27] MEDS: traZODone 50 MG TABLET PO SCH (20:37)
[2020-10-28] MEDS: PIPERACILLIN/TAZOBACTAM 3,375 MG in SODIUM CHLORIDE 0.9% 100 ML IV SCH ×2 (04:55→12:32)
[2020-10-28 05:27] LABS: Basophils % 0.3 % (0.0-0.8); Eosinophils # 0.2 10*3/uL (0.0-0.87); Eosinophils % 2.6 % (0.00-10.9); Hemoglobin 9.6 GM/DL (14.0-18.0); Immature Granulocytes % 0.7 %; Immature Granulocytes Absolute 0.06 #; Lymphocytes # 0.6 10*3/uL (1.4-4.0); Mean Corpuscular Volume 94.5 FL (87-102); Mean Platelet Volume 11.1 FL (9.6-12.0); Monocytes % 9.7 % (1.7-12.7); Neutrophils % 79.7 % (38.7-73.9); Platelet Count 169 T/CUMM (130-400); Red Blood Count 3.28 MC/CUMM (3.8-5.5); Red Cell Distribution Width 15.5 % (9.3-17.3); White Blood Count 9.1 T/CUMM (4-12)
[2020-10-28 05:52] LABS: Calcium 8.7 MG/DL (8.5-10.1); Osmolality,Calculated 282.4 MOS/KG (273-304)
[2020-10-28] MEDS ORDERED: POTASSIUM CHLORIDE 20 MEQ TABLET PO ONE (07:45)
[2020-10-28] MEDS ORDERED: FUROSEMIDE 40 MG TABLET PO SCH (08:00)
[2020-10-28] MEDS: ASPIRIN EC 81 MG TABLET PO SCH (09:15)
[2020-10-28] MEDS: CYANOCOBALAMIN 500 MCG TABLET PO SCH (09:15)
[2020-10-28] MEDS: SPIRONOLACTONE 25 MG TABLET PO SCH (09:15)
[2020-10-28] MEDS: CITALOPRAM 20 MG TABLET PO SCH (09:16)
[2020-10-28] MEDS: FAMOTIDINE 20 MG TABLET PO SCH (09:16)
[2020-10-28] MEDS: APIXABAN 5 MG TABLET PO SCH (09:16)
[2020-10-28] MEDS: METOPROLOL TARTRATE 100 MG TABLET PO SCH (09:16)
[2020-10-28] MEDS: ursodioL 300 MG CAPSULE PO SCH (09:17)
[2020-10-28] MEDS: DOCUSATE SODIUM 100 MG CAPSULE PO SCH (09:17)
[2020-10-28] MEDS: INSULIN LISPRO 100 UNIT/ML SUBCUT SCH ×2 (09:17→12:32)
[2020-10-28] MEDS: TOUJEO INSULIN SUBCUT SCH (09:17)
[2020-10-28] MEDS: ISOSORBIDE MONONITRATE 60 MG TABLET PO SCH (09:17)
[2020-10-28] MEDS: FERROUS SULFATE 325 MG TABLET PO SCH (09:17)
[2020-10-28 11:43] VITALS: BP 147/80
[2020-10-28] MEDS: VANCOMYCIN INJ 1,250 MG in SODIUM CHLORIDE 0.9% 250 ML IV SCH (14:27)
[2020-10-30 01:01] LABS: CDT Result Negative (Negative); CDT Specimen Source STOOL
== END 2020-10-28 14:18 | disposition home health service (06) | DRG 603 ==
LOC: N.5E → SUATTDRO 09:32
PROVIDERS: ADMIT Internal Medicine; ATTEND Student in an Organized Health Care Education/Training Program

== ENCOUNTER 2021-01-28 05:48 | Observation (INO) ==
[~2021-01-28 05:48] MED LIST: ASPIRIN 325 MG TABLET PO ONE; DEXTROSE 5% NACL 0.45% 1,000 ML IV SCH; DIAZEPAM 5 MG TABLET PO ONE; MAGNESIUM SULF RIDER 2 GM/50 ML PREMIX IV PRN; POTASSIUM CHLORIDE RIDER 10 MEQ/100 ML PREMIX IV PRN; diphenhydrAMINE CAP 50 MG CAPSULE PO ONE
[2021-01-28] MEDS ORDERED: DIAZEPAM 5 MG TABLET ONE (06:46)
[2021-01-28] MEDS ORDERED: diphenhydrAMINE CAP 50 MG CAPSULE ONE (06:46)
[2021-01-28] MEDS ORDERED: ASPIRIN 325 MG TABLET ONE (06:46)
[2021-01-28] MEDS ORDERED: LIDOCAINE 1%/EPI INJ 20 ML VIAL ONE (07:06)
[2021-01-28] MEDS ORDERED: GLUCAGON 1 MG VIAL IM PRN (07:42)
[2021-01-28] MEDS ORDERED: ACETAMINOPHEN/CODEINE 300-30 MG TABLET PO PRN (15:20)
[2021-01-28] MEDS ORDERED: metOLazone 5 MG TABLET PO PRN (15:20)
[2021-01-28] MEDS ORDERED: NITROGLYCERIN SL 0.4 MG TABLET SL PRN (15:20)
[2021-01-28] MEDS ORDERED: DOCUSATE SODIUM 100 MG CAPSULE PO PRN (15:20)
[2021-01-28] MEDS ORDERED: diphenhydrAMINE CAP 25 MG CAPSULE PO PRN (15:23)
[2021-01-28] MEDS ORDERED: MAGNESIUM HYDROXIDE SUSP 30 ML UDCUP PO PRN (15:23)
[2021-01-28] MEDS ORDERED: MAGNESIUM SULF RIDER 2 GM/50 ML PREMIX IV PRN (15:27)
[2021-01-28 15:55] LABS: Basophils % 0.4 % (0.0-0.8); Eosinophils # 0.3 10*3/uL (0.0-0.87); Eosinophils % 3.1 % (0.00-10.9); Hematocrit 29.5 VOL% (42.0-52.0); Immature Granulocytes % 0.8 %; Immature Granulocytes Absolute 0.08 #; Lymphocytes # 0.6 10*3/uL (1.4-4.0); Lymphocytes % 5.8 % (21.2-54.2); Mean Corpuscular HGB Conc 30.5 GM/DL (32-36); Mean Corpuscular Volume 95.2 FL (87-102); Monocytes % 9.4 % (1.7-12.7); Neutrophils % 80.5 % (38.7-73.9); Platelet Count 167 T/CUMM (130-400); Red Cell Distribution Width 16.1 % (9.3-17.3); White Blood Count 10.4 T/CUMM (4-12)
[2021-01-28 16:09] LABS: Calcium 8.4 MG/DL (8.5-10.1); Osmolality,Calculated 285.5 MOS/KG (273-304); Potassium 3.9 MMOL/L (3.5-5.1)
[2021-01-28] MEDS: GLIMEPIRIDE 2 MG TABLET PO SCH (17:49)
[2021-01-28] MEDS: FUROSEMIDE 40 MG/4 ML VIAL IV SCH (17:50)
[2021-01-28] MEDS: INSULIN REGULAR 100 UNIT/ML SUBCUT SCH ×2 (19:14→22:00)
[2021-01-28] MEDS: traZODone 50 MG TABLET PO SCH (21:53)
[2021-01-28] MEDS: POTASSIUM CHLORIDE 10 MEQ TABLET PO SCH (21:54)
[2021-01-28] MEDS: METOPROLOL TARTRATE 100 MG TABLET PO SCH (21:54)
[2021-01-28] MEDS: CYANOCOBALAMIN 500 MCG TABLET PO SCH (21:55)
[2021-01-28] MEDS: CHOLECALCIFEROL 1,000 UNIT TABLET PO SCH (21:55)
[2021-01-28] MEDS: FERROUS SULFATE 325 MG TABLET PO SCH (21:56)
[2021-01-28] MEDS: GABAPENTIN 300 MG CAPSULE PO SCH (21:57)
[2021-01-28] MEDS: TAMSULOSIN 0.4 MG CAPSULE PO SCH (21:57)
[2021-01-28] MEDS: ROSUVASTATIN 10 MG TABLET PO SCH (21:58)
[2021-01-28] MEDS ORDERED: FUROSEMIDE 40 MG/4 ML VIAL IV ONE (22:00)
[2021-01-28] MEDS: ursodioL 300 MG CAPSULE PO SCH (22:04)
[2021-01-29 07:15] LABS: Basophils % 0.4 % (0.0-0.8); Eosinophils # 0.3 10*3/uL (0.0-0.87); Eosinophils % 3.2 % (0.00-10.9); Hemoglobin 9.7 GM/DL (14.0-18.0); Immature Granulocytes % 0.4 %; Immature Granulocytes Absolute 0.04 #; Lymphocytes % 10.9 % (21.2-54.2); Mean Corpuscular HGB Conc 31.3 GM/DL (32-36); Mean Corpuscular Volume 94.5 FL (87-102); Mean Platelet Volume 10.8 FL (9.6-12.0); Monocytes % 11.4 % (1.7-12.7); Neutrophils % 73.7 % (38.7-73.9); Platelet Count 183 T/CUMM (130-400); Red Blood Count 3.28 MC/CUMM (3.8-5.5); Red Cell Distribution Width 15.9 % (9.3-17.3); White Blood Count 8.9 T/CUMM (4-12)
[2021-01-29] MEDS ORDERED: diphenhydrAMINE CAP 25 MG CAPSULE PO ONE ×2 (07:30→15:00)
[2021-01-29] MEDS ORDERED: DIAZEPAM 5 MG TABLET PO ONE ×2 (07:30→15:00)
[2021-01-29 07:48] LABS: Calcium 8.6 MG/DL (8.5-10.1); Osmolality,Calculated 276.5 MOS/KG (273-304); Potassium 3.8 MMOL/L (3.5-5.1)
[2021-01-29] MEDS: DEXTROSE 50% 25 GM/50 ML VIAL IV PRN ×3 (08:01→20:02)
[2021-01-29] MEDS: FERROUS SULFATE 325 MG TABLET PO SCH ×3 (08:07→22:05)
[2021-01-29] MEDS: POTASSIUM CHLORIDE 10 MEQ TABLET PO SCH ×2 (08:07→22:04)
[2021-01-29] MEDS: FAMOTIDINE 20 MG TABLET PO SCH (08:48)
[2021-01-29] MEDS: METOPROLOL TARTRATE 100 MG TABLET PO SCH ×2 (08:48→22:05)
[2021-01-29] MEDS: SPIRONOLACTONE 25 MG TABLET PO SCH (08:49)
[2021-01-29] MEDS: ASPIRIN EC 81 MG TABLET PO SCH (08:49)
[2021-01-29] MEDS: ISOSORBIDE MONONITRATE 60 MG TABLET PO SCH (08:49)
[2021-01-29] MEDS: FUROSEMIDE 40 MG/4 ML VIAL IV SCH ×2 (08:54→17:35)
[2021-01-29] MEDS: MONTELUKAST 10 MG TABLET PO SCH (09:11)
[2021-01-29] MEDS: CITALOPRAM 20 MG TABLET PO SCH (09:11)
[2021-01-29] MEDS: LEVALBUTEROL 0.63 MG/3 ML NEB RESP TX SCH ×3 (09:40→18:50)
[2021-01-29] MEDS: INSULIN REGULAR 100 UNIT/ML SUBCUT SCH ×3 (10:10→17:36)
[2021-01-29] MEDS: GLIMEPIRIDE 2 MG TABLET PO SCH ×2 (10:11→17:35)
[2021-01-29] MEDS ORDERED: LIDOCAINE 1%/EPI INJ 20 ML VIAL ONE (14:23)
[2021-01-29] MEDS ORDERED: HEPARIN/NACL 0.9% 2 UNITS/ML 0 UNIT/0 ML BAG IV ONE (14:23)
[2021-01-29] MEDS ORDERED: MIDAZOLAM 2 MG/2 ML VIAL ONE (15:15)
[2021-01-29] MEDS ORDERED: fentaNYL 100 MCG/2 ML VIAL ONE (15:15)
[2021-01-29] MEDS: ursodioL 300 MG CAPSULE PO SCH ×2 (17:30→22:04)
[2021-01-29] MEDS: INSULIN GLARGINE 100 UNIT/ML SUBCUT SCH (17:30)
[2021-01-29] MEDS: CYANOCOBALAMIN 500 MCG TABLET PO SCH (22:04)
[2021-01-29] MEDS: TAMSULOSIN 0.4 MG CAPSULE PO SCH (22:04)
[2021-01-29] MEDS: CHOLECALCIFEROL 1,000 UNIT TABLET PO SCH (22:04)
[2021-01-29] MEDS: ROSUVASTATIN 10 MG TABLET PO SCH (22:04)
[2021-01-29] MEDS: traZODone 50 MG TABLET PO SCH (22:05)
[2021-01-29] MEDS: GABAPENTIN 300 MG CAPSULE PO SCH (22:05)
[2021-01-30] MEDS: INSULIN REGULAR 100 UNIT/ML SUBCUT SCH ×4 (00:10→17:41)
[2021-01-30] MEDS: LEVALBUTEROL 0.63 MG/3 ML NEB RESP TX SCH ×3 (04:43→13:38)
[2021-01-30 06:05] LABS: Basophils % 0.4 % (0.0-0.8); Eosinophils # 0.2 10*3/uL (0.0-0.87); Eosinophils % 2.7 % (0.00-10.9); Hematocrit 29.4 VOL% (42.0-52.0); Hemoglobin 8.9 GM/DL (14.0-18.0); Immature Granulocytes % 0.5 %; Immature Granulocytes Absolute 0.04 #; Lymphocytes # 0.6 10*3/uL (1.4-4.0); Lymphocytes % 7.8 % (21.2-54.2); Mean Corpuscular HGB Conc 30.3 GM/DL (32-36); Mean Corpuscular Volume 96.1 FL (87-102); Mean Platelet Volume 10.9 FL (9.6-12.0); Monocytes % 11.5 % (1.7-12.7); Neutrophils % 77.1 % (38.7-73.9); Platelet Count 177 T/CUMM (130-400); Red Blood Count 3.06 MC/CUMM (3.8-5.5); Red Cell Distribution Width 16.1 % (9.3-17.3); White Blood Count 7.8 T/CUMM (4-12)
[2021-01-30 06:43] LABS: Calcium 8.8 MG/DL (8.5-10.1); Osmolality,Calculated 286.3 MOS/KG (273-304); Potassium 3.2 MMOL/L (3.5-5.1)
[2021-01-30] MEDS ORDERED: POTASSIUM CHLORIDE 20 MEQ TABLET PO ONE (07:08)
[2021-01-30] MEDS: INSULIN GLARGINE 100 UNIT/ML SUBCUT SCH (08:35)
[2021-01-30] MEDS ORDERED: amLODIPine 5 MG TABLET PO SCH (09:00)
[2021-01-30] MEDS: FERROUS SULFATE 325 MG TABLET PO SCH (09:38)
[2021-01-30] MEDS: MONTELUKAST 10 MG TABLET PO SCH (09:38)
[2021-01-30] MEDS: SPIRONOLACTONE 25 MG TABLET PO SCH (09:39)
[2021-01-30] MEDS: GLIMEPIRIDE 2 MG TABLET PO SCH ×2 (09:39→16:46)
[2021-01-30] MEDS: ISOSORBIDE MONONITRATE 60 MG TABLET PO SCH (09:39)
[2021-01-30] MEDS: FAMOTIDINE 20 MG TABLET PO SCH (09:39)
[2021-01-30] MEDS: POTASSIUM CHLORIDE 10 MEQ TABLET PO SCH (09:39)
[2021-01-30] MEDS: ursodioL 300 MG CAPSULE PO SCH (09:40)
[2021-01-30] MEDS: CITALOPRAM 20 MG TABLET PO SCH (09:40)
[2021-01-30] MEDS: METOPROLOL TARTRATE 100 MG TABLET PO SCH (09:40)
[2021-01-30] MEDS: ASPIRIN EC 81 MG TABLET PO SCH (09:40)
[2021-01-30] MEDS: FUROSEMIDE 40 MG/4 ML VIAL IV SCH ×2 (09:44→16:46)
[2021-01-30 17:36] VITALS: BP 149/73
== END 2021-01-30 17:31 | disposition home or self-care (01) ==
LOC: N.TELEN 05:48 → N.CL 05:48 → N.TELEN 08:53
PROVIDERS: ADMIT Internal Medicine Interventional Cardiology; ATTEND Internal Medicine Interventional Cardiology

== ENCOUNTER 2021-06-13 11:50 | Inpatient (IN) ==
[2021-06-13 15:17] LABS: Bilirubin,Urine Negative (Negative); Blood, Urine Negative (Negative); Glucose,Urine (UA) Negative (Negative); Ketones,Urine Negative (Negative); Nitrite,Urine Negative (Negative); Protein,Urine >=500 MG/DL; RBC,Urine 1 /HPF (0-4); Squamous Epithelial Cell,Urine Occasional /HPF (0-10); Urine Appearance CLEAR (Clear); Urine Color Yellow (Yellow); Urine Specific Gravity 1.012 (1.001-1.035); Urine Urobilinogen < 2.0 EU/DL (<2.0)
[2021-06-13 15:51] LABS: Basophils % 0.2 % (0.0-0.8); Hematocrit 27.6 VOL% (42.0-52.0); Hemoglobin 8.5 GM/DL (14.0-18.0); Immature Granulocytes % 3.9 %; Immature Granulocytes Absolute 0.19 #; Lymphocytes # 0.4 10*3/uL (1.4-4.0); Lymphocytes % 8.8 % (21.2-54.2); Mean Corpuscular HGB Conc 30.8 GM/DL (32-36); Mean Corpuscular Volume 90.2 FL (87-102); Mean Platelet Volume 10.6 FL (9.6-12.0); Monocytes % 6.8 % (1.7-12.7); NRBC # 0.06 10*3/uL; Neutrophils % 80.3 % (38.7-73.9); Platelet Count 268 T/CUMM (130-400); Red Blood Count 3.06 MC/CUMM (3.8-5.5); Red Cell Distribution Width 17.4 % (9.3-17.3); White Blood Count 4.9 T/CUMM (4-12)
[2021-06-13 15:58] LABS: Albumin 2.6 G/DL (3.4-5.0); Bilirubin,Total 0.6 MG/DL (0.20-1.00); Calcium 8.9 MG/DL (8.5-10.1); Osmolality,Calculated 280.8 MOS/KG (273-304); Potassium 4.1 MMOL/L (3.5-5.1); Total Protein 6.5 G/DL (6.4-8.2)
[2021-06-13] MEDS ORDERED: guaiFENesin/DM ER 600-30 MG TABLET PO PRN (17:25)
[2021-06-13] MEDS ORDERED: MELATONIN 3 MG TABLET PO PRN (17:25)
[2021-06-13] MEDS ORDERED: DEXTROSE 50% 25 GM/50 ML VIAL IV PRN (17:25)
[2021-06-13] MEDS ORDERED: hydrALAZINE 20 MG/1 ML VIAL IV PRN (17:25)
[2021-06-13] MEDS ORDERED: AZITHROMYCIN INJ 500 MG in SODIUM CHLORIDE 0.9% 250 ML IV ONE (17:25)
[2021-06-13] MEDS ORDERED: GLUCAGON 1 MG VIAL IM PRN ×2 (17:25→17:28)
[2021-06-13] MEDS ORDERED: ENOXAPARIN 60 MG/0.6 ML SYRINGE SUBCUT SCH (17:30)
[2021-06-13] MEDS ORDERED: DEXTROSE 10% 25 GM/250 ML BAG IV PRN (17:33)
[2021-06-13 17:48] LABS: INR 1.1; PT Patient Result 12.1 SECS (10.5-12.0)
[2021-06-13] MEDS ORDERED: FUROSEMIDE 40 MG/4 ML VIAL IV STA (17:58)
[2021-06-13] MEDS: cefTRIAXone 1,000 MG VIAL IM SCH (18:31)
[2021-06-13] MEDS ORDERED: MORPHINE 2 MG/1 ML SYRINGE ONE (19:41)
[2021-06-13] MEDS: MORPHINE 2 MG/1 ML SYRINGE IV PRN (19:50)
[2021-06-13] MEDS ORDERED: REMDESIVIR 200 MG in SODIUM CHLORIDE 0.9% 210 ML IV ONE (21:00)
[2021-06-13] MEDS: INSULIN REGULAR 100 UNIT/ML SUBCUT SCH (21:21)
[2021-06-13] MEDS: ASCORBIC ACID 500 MG TABLET PO SCH (21:22)
[2021-06-13] MEDS: APIXABAN 5 MG TABLET PO SCH (21:22)
[2021-06-14] MEDS: ALBUTEROL INHALER 18 GM INH SCH ×5 (00:10→21:50)
[2021-06-14 06:41] LABS: Basophils % 0.2 % (0.0-0.8); Hematocrit 26.1 VOL% (42.0-52.0); Immature Granulocytes Absolute 0.13 #; Lymphocytes # 0.4 10*3/uL (1.4-4.0); Lymphocytes % 9.3 % (21.2-54.2); Mean Corpuscular HGB Conc 30.7 GM/DL (32-36); Mean Corpuscular Volume 90.3 FL (87-102); Mean Platelet Volume 10.6 FL (9.6-12.0); Monocytes % 7.5 % (1.7-12.7); NRBC # 0.05 10*3/uL; Platelet Count 246 T/CUMM (130-400); Red Blood Count 2.89 MC/CUMM (3.8-5.5); Red Cell Distribution Width 17.5 % (9.3-17.3); White Blood Count 4.4 T/CUMM (4-12)
[2021-06-14 07:08] LABS: Ferritin 484.5 ng/mL (26-388)
[2021-06-14 07:11] LABS: Hypochromia Slight; Platelet Estimate Normal
[2021-06-14 07:51] LABS: Sedimentation Rate-Westergren 124 MM/HR (0-20)
[2021-06-14] MEDS: INSULIN REGULAR 100 UNIT/ML SUBCUT SCH ×4 (08:04→21:56)
[2021-06-14 09:24] LABS: % Iron Saturation 7.9 % (18-50); Ferritin 496.2 ng/mL (26-388)
[2021-06-14 09:31] LABS: Folate > 24.00 NG/ML (5.38-24.0); Vitamin B12 > 2000 PG/ML (211-911)
[2021-06-14] MEDS: DEXAMETHASONE 4 MG/1 ML VIAL IV SCH (12:57)
[2021-06-14] MEDS: REMDESIVIR 100 MG in SODIUM CHLORIDE 0.9% 100 ML IV SCH (12:57)
[2021-06-14] MEDS: ASCORBIC ACID 500 MG TABLET PO SCH ×2 (12:58→21:52)
[2021-06-14] MEDS: CETIRIZINE 10 MG TABLET PO SCH (12:58)
[2021-06-14] MEDS: APIXABAN 5 MG TABLET PO SCH ×2 (12:58→21:51)
[2021-06-14] MEDS: CHOLECALCIFEROL 1,000 UNIT TABLET PO SCH (12:58)
[2021-06-14] MEDS: ZINC GLUCONATE 50 MG TABLET PO SCH (12:58)
[2021-06-14] MEDS: MORPHINE 2 MG/1 ML SYRINGE IV PRN (13:20)
[2021-06-14] MEDS: cefTRIAXone 1,000 MG VIAL IM SCH (21:50)
[2021-06-15] MEDS: ALBUTEROL INHALER 18 GM INH SCH ×4 (02:32→22:15)
[2021-06-15 05:50] LABS: Basophils % 0.4 % (0.0-0.8); Hematocrit 30.2 VOL% (42.0-52.0); Hemoglobin 9.2 GM/DL (14.0-18.0); Immature Granulocytes % 3.8 %; Immature Granulocytes Absolute 0.09 #; Lymphocytes # 0.4 10*3/uL (1.4-4.0); Lymphocytes % 15.3 % (21.2-54.2); Mean Corpuscular HGB Conc 30.5 GM/DL (32-36); Mean Corpuscular Volume 91.2 FL (87-102); Mean Platelet Volume 10.5 FL (9.6-12.0); Monocytes % 10.6 % (1.7-12.7); NRBC # 0.07 10*3/uL; Neutrophils % 69.9 % (38.7-73.9); Platelet Count 318 T/CUMM (130-400); Red Blood Count 3.31 MC/CUMM (3.8-5.5); Red Cell Distribution Width 16.8 % (9.3-17.3); White Blood Count 2.4 T/CUMM (4-12)
[2021-06-15 06:11] LABS: Calcium 9.6 MG/DL (8.5-10.1); Osmolality,Calculated 290.1 MOS/KG (273-304); Potassium 4.2 MMOL/L (3.5-5.1)
[2021-06-15] MEDS: APIXABAN 5 MG TABLET PO SCH ×2 (10:00→22:15)
[2021-06-15] MEDS: REMDESIVIR 100 MG in SODIUM CHLORIDE 0.9% 100 ML IV SCH (10:00)
[2021-06-15] MEDS: CETIRIZINE 10 MG TABLET PO SCH (10:00)
[2021-06-15] MEDS: DEXAMETHASONE 4 MG/1 ML VIAL IV SCH (10:00)
[2021-06-15] MEDS: ASCORBIC ACID 500 MG TABLET PO SCH ×2 (10:00→22:15)
[2021-06-15] MEDS: FERRIC GLUCONATE COMPLEX 125 MG in SODIUM CHLORIDE 0.9% 100 ML IV SCH (10:00)
[2021-06-15] MEDS: CHOLECALCIFEROL 1,000 UNIT TABLET PO SCH (10:00)
[2021-06-15] MEDS: INSULIN REGULAR 100 UNIT/ML SUBCUT SCH ×4 (10:00→22:41)
[2021-06-15] MEDS: ZINC GLUCONATE 50 MG TABLET PO SCH (10:00)
[2021-06-15] MEDS: INSULIN GLARGINE 100 UNIT/ML SUBCUT SCH ×2 (12:00→22:41)
[2021-06-15] MEDS: cefTRIAXone 1,000 MG VIAL IM SCH (18:43)
[2021-06-15] MEDS: cefTRIAXone 1,000 MG in SODIUM CHLORIDE 0.9% 100 ML IV SCH (22:15)
[2021-06-15] MEDS: MORPHINE 2 MG/1 ML SYRINGE IV PRN (23:10)
[2021-06-16] MEDS: ALBUTEROL INHALER 18 GM INH SCH ×2 (02:29→05:57)
[2021-06-16 03:05] LABS: Hematocrit 25.8 VOL% (42.0-52.0); Hemoglobin 8.1 GM/DL (14.0-18.0); Immature Granulocytes % 1.6 %; Immature Granulocytes Absolute 0.12 #; Lymphocytes # 0.6 10*3/uL (1.4-4.0); Lymphocytes % 7.9 % (21.2-54.2); Mean Corpuscular HGB Conc 31.4 GM/DL (32-36); Mean Platelet Volume 10.1 FL (9.6-12.0); Monocytes % 4.5 % (1.7-12.7); Platelet Count 298 T/CUMM (130-400); Red Cell Distribution Width 16.5 % (9.3-17.3); White Blood Count 7.4 T/CUMM (4-12)
[2021-06-16 03:41] LABS: Calcium 9.2 MG/DL (8.5-10.1); Potassium 4.1 MMOL/L (3.5-5.1)
[2021-06-16] MEDS: CHOLECALCIFEROL 1,000 UNIT TABLET PO SCH (09:50)
[2021-06-16] MEDS: REMDESIVIR 100 MG in SODIUM CHLORIDE 0.9% 100 ML IV SCH (09:50)
[2021-06-16] MEDS: CETIRIZINE 10 MG TABLET PO SCH (09:50)
[2021-06-16] MEDS: DEXAMETHASONE 4 MG/1 ML VIAL IV SCH (09:50)
[2021-06-16] MEDS: ZINC GLUCONATE 50 MG TABLET PO SCH (09:50)
[2021-06-16] MEDS: APIXABAN 5 MG TABLET PO SCH ×2 (09:50→22:16)
[2021-06-16] MEDS: ASCORBIC ACID 500 MG TABLET PO SCH ×2 (09:50→22:15)
[2021-06-16] MEDS: INSULIN REGULAR 100 UNIT/ML SUBCUT SCH ×4 (10:43→22:17)
[2021-06-16] MEDS: INSULIN GLARGINE 100 UNIT/ML SUBCUT SCH ×2 (10:44→22:16)
[2021-06-16] MEDS: FERRIC GLUCONATE COMPLEX 125 MG in SODIUM CHLORIDE 0.9% 100 ML IV SCH (15:20)
[2021-06-16] MEDS: methylPREDNISolone SOD SUC 40 MG/1 ML VIAL IV SCH ×2 (17:40→18:45)
[2021-06-16] MEDS: IVERMECTIN 3 MG TABLET PO SCH (17:40)
[2021-06-16] MEDS: MELATONIN 3 MG TABLET PO SCH (22:14)
[2021-06-16] MEDS: CHOLECALCIFEROL 5,000 UNIT TABLET PO SCH (22:16)
[2021-06-16] MEDS: cefTRIAXone 1,000 MG in SODIUM CHLORIDE 0.9% 100 ML IV SCH (22:19)
[2021-06-17] MEDS: methylPREDNISolone SOD SUC 40 MG/1 ML VIAL IV SCH ×3 (03:34→19:40)
[2021-06-17 05:07] LABS: Basophils % 0.1 % (0.0-0.8); Hematocrit 25.7 VOL% (42.0-52.0); Hemoglobin 7.9 GM/DL (14.0-18.0); Immature Granulocytes % 3.5 %; Lymphocytes # 0.8 10*3/uL (1.4-4.0); Lymphocytes % 8.8 % (21.2-54.2); Mean Corpuscular HGB Conc 30.7 GM/DL (32-36); Mean Corpuscular Volume 88.3 FL (87-102); Mean Platelet Volume 10.4 FL (9.6-12.0); Monocytes % 3.4 % (1.7-12.7); NRBC # 0.23 10*3/uL; Neutrophils % 84.2 % (38.7-73.9); Platelet Count 309 T/CUMM (130-400); Red Blood Count 2.91 MC/CUMM (3.8-5.5); Red Cell Distribution Width 16.1 % (9.3-17.3); White Blood Count 8.7 T/CUMM (4-12)
[2021-06-17 05:41] LABS: Albumin 2.3 G/DL (3.4-5.0); Bilirubin,Total 0.8 MG/DL (0.20-1.00); Calcium 9.1 MG/DL (8.5-10.1); Ferritin 541.5 ng/mL (26-388); Osmolality,Calculated 283.1 MOS/KG (273-304); Potassium 4.1 MMOL/L (3.5-5.1); Total Protein 6.1 G/DL (6.4-8.2)
[2021-06-17] MEDS: ALBUTEROL INHALER 18 GM INH SCH ×4 (07:46→20:00)
[2021-06-17] MEDS: CETIRIZINE 10 MG TABLET PO SCH (09:56)
[2021-06-17] MEDS: APIXABAN 5 MG TABLET PO SCH ×2 (09:56→21:28)
[2021-06-17] MEDS: ASCORBIC ACID 500 MG TABLET PO SCH ×2 (09:56→21:28)
[2021-06-17] MEDS: FERRIC GLUCONATE COMPLEX 125 MG in SODIUM CHLORIDE 0.9% 100 ML IV SCH (09:56)
[2021-06-17] MEDS: IVERMECTIN 3 MG TABLET PO SCH (09:57)
[2021-06-17] MEDS: INSULIN GLARGINE 100 UNIT/ML SUBCUT SCH ×2 (09:57→21:29)
[2021-06-17] MEDS: INSULIN REGULAR 100 UNIT/ML SUBCUT SCH ×5 (09:57→21:29)
[2021-06-17] MEDS: CHOLECALCIFEROL 5,000 UNIT TABLET PO SCH ×2 (09:57→21:29)
[2021-06-17] MEDS: ZINC GLUCONATE 50 MG TABLET PO SCH (13:18)
[2021-06-17] MEDS ORDERED: DEXTROSE 10% 25 GM/250 ML BAG IV PRN (16:33)
[2021-06-17] MEDS: MORPHINE 2 MG/1 ML SYRINGE IV PRN (19:40)
[2021-06-17] MEDS: MELATONIN 3 MG TABLET PO SCH (21:28)
[2021-06-17] MEDS: cefTRIAXone 1,000 MG in SODIUM CHLORIDE 0.9% 100 ML IV SCH (21:30)
[2021-06-18] MEDS: ALBUTEROL INHALER 18 GM INH SCH ×3 (01:30→14:17)
[2021-06-18] MEDS: methylPREDNISolone SOD SUC 40 MG/1 ML VIAL IV SCH ×2 (03:39→14:17)
[2021-06-18 04:40] LABS: Basophils % 0.2 % (0.0-0.8); Hematocrit 25.5 VOL% (42.0-52.0); Hemoglobin 8.1 GM/DL (14.0-18.0); Immature Granulocytes % 4.4 %; Immature Granulocytes Absolute 0.52 #; Lymphocytes # 0.7 10*3/uL (1.4-4.0); Lymphocytes % 6.1 % (21.2-54.2); Mean Corpuscular HGB Conc 31.8 GM/DL (32-36); Mean Corpuscular Volume 89.5 FL (87-102); Mean Platelet Volume 10.8 FL (9.6-12.0); NRBC # 0.26 10*3/uL; Neutrophils % 84.3 % (38.7-73.9); Platelet Count 291 T/CUMM (130-400); Red Blood Count 2.85 MC/CUMM (3.8-5.5); Red Cell Distribution Width 15.9 % (9.3-17.3); White Blood Count 11.9 T/CUMM (4-12)
[2021-06-18 05:02] LABS: Calcium 8.9 MG/DL (8.5-10.1); Ferritin 414.3 ng/mL (26-388); Osmolality,Calculated 279.4 MOS/KG (273-304)
[2021-06-18 05:17] LABS: Band Neutrophils 1 % (0-10); Lymphocytes 7 % (20-55); Platelet Estimate Adequate; Segmented Neutrophils 90 % (50-85); Total Cells Counted 100
[2021-06-18 05:18] LABS: Hypochromia 1+; Microcytosis 1+
[2021-06-18] MEDS: INSULIN GLARGINE 100 UNIT/ML SUBCUT SCH (08:25)
[2021-06-18] MEDS: INSULIN REGULAR 100 UNIT/ML SUBCUT SCH ×3 (08:25→17:08)
[2021-06-18] MEDS: FERRIC GLUCONATE COMPLEX 125 MG in SODIUM CHLORIDE 0.9% 100 ML IV SCH (08:25)
[2021-06-18] MEDS: ASCORBIC ACID 500 MG TABLET PO SCH (08:26)
[2021-06-18] MEDS: ZINC GLUCONATE 50 MG TABLET PO SCH (08:26)
[2021-06-18] MEDS: APIXABAN 5 MG TABLET PO SCH (08:26)
[2021-06-18] MEDS: CETIRIZINE 10 MG TABLET PO SCH (08:26)
[2021-06-18] MEDS: IVERMECTIN 3 MG TABLET PO SCH (08:26)
[2021-06-18] MEDS: CHOLECALCIFEROL 5,000 UNIT TABLET PO SCH (08:26)
[2021-06-18 12:37] VITALS: BP 188/87
== END 2021-06-18 18:11 | disposition home or self-care (01) | DRG 177 ==
LOC: N.ED 11:50 → N.EDINP 17:25 → SUATTDRO 17:25 → N.3E 23:28
PROVIDERS: ADMIT Internal Medicine; ATTEND Internal Medicine

== ENCOUNTER 2021-07-03 09:27 | Inpatient (IN) ==
[2021-07-03] MEDS ORDERED: ALBUTEROL 2.5 MG/3 ML NEB RESP TX STA (09:57)
[2021-07-03] MEDS ORDERED: methylPREDNISolone SOD SUC 125 MG/2 ML VIAL IV STA (10:39)
[2021-07-03] MEDS ORDERED: PIPERACILLIN/TAZOBACTAM 3,375 MG in SODIUM CHLORIDE 0.9% 100 ML IV STA (10:40)
[2021-07-03 10:41] LABS: INR 1.1; PT Patient Result 11.9 SECS (10.5-12.0); Partial Thromboplastin Time 25.5 SECS (23.8-32.1)
[2021-07-03] MEDS ORDERED: INSULIN LISPRO 100 UNIT/ML SUBCUT STA (10:41)
[2021-07-03 11:02] LABS: Basophils % 0.1 % (0.0-0.8); Immature Granulocytes % 1.5 %; Immature Granulocytes Absolute 0.26 #; Lymphocytes # 0.7 10*3/uL (1.4-4.0); Lymphocytes % 4.2 % (21.2-54.2); Mean Corpuscular HGB Conc 30.5 GM/DL (32-36); Mean Corpuscular Volume 97.4 FL (87-102); Monocytes % 5.7 % (1.7-12.7); NRBC # 0.05 10*3/uL; Neutrophils % 88.5 % (38.7-73.9); Platelet Count 157 T/CUMM (130-400); Red Blood Count 1.55 MC/CUMM (3.8-5.5)
[2021-07-03 11:09] LABS: Hematocrit 15.1 VOL% (42.0-52.0); Hemoglobin 4.6 GM/DL (14.0-18.0)
[2021-07-03 11:31] LABS: Hypochromia 1+; Lymphocytes 2 % (20-55); Segmented Neutrophils 95 % (50-85); Total Cells Counted 100
[2021-07-03 11:32] LABS: Anisocytosis 1+; Microcytosis 1+; Polychromasia 1+
[2021-07-03 11:33] LABS: Macrocytosis Slight; Platelet Estimate Normal
[2021-07-03 11:55] LABS: Albumin 1.8 G/DL (3.4-5.0); Bilirubin,Total 0.4 MG/DL (0.20-1.00); Calcium 9.2 MG/DL (8.5-10.1); Osmolality,Calculated 295.9 MOS/KG (273-304); Potassium 4.8 MMOL/L (3.5-5.1); Total Protein 5.1 G/DL (6.4-8.2)
[2021-07-03] MEDS ORDERED: BISACODYL 5 MG TABLET PO PRN (12:20)
[2021-07-03] MEDS ORDERED: ACETAMINOPHEN 325 MG TABLET PO PRN (12:20)
[2021-07-03] MEDS ORDERED: ONDANSETRON 4 MG/2 ML VIAL IV PRN (12:20)
[2021-07-03] MEDS ORDERED: GLUCAGON 1 MG VIAL IM PRN (12:20)
[2021-07-03] MEDS ORDERED: DEXTROSE 10% 25 GM/250 ML BAG IV PRN (12:24)
[2021-07-03] MEDS ORDERED: MELATONIN 3 MG TABLET PO PRN (12:24)
[2021-07-03] MEDS ORDERED: SODIUM CHLORIDE 0.9% 1,000 ML IV PRN (12:27)
[2021-07-03] MEDS ORDERED: NITROGLYCERIN SL 0.4 MG TABLET SL PRN (12:41)
[2021-07-03] MEDS: SODIUM CHLORIDE 0.9% 1,000 ML IV SCH (12:52)
[2021-07-03] MEDS: PANTOPRAZOLE 40 MG VIAL IV SCH ×2 (12:57→21:35)
[2021-07-03 13:15] LABS: Bilirubin,Urine Negative (Negative); Blood, Urine Negative (Negative); Glucose,Urine (UA) >=500 mg/dL (Negative); Hyaline Casts,Urine 4 /LPF (0-3); Ketones,Urine Negative (Negative); Mucus,Urine Occasional /LPF (Occasional); Nitrite,Urine Negative (Negative); Protein,Urine 100 MG/DL; RBC,Urine 18 /HPF (0-4); Squamous Epithelial Cell,Urine Occasional /HPF (0-10); Urine Appearance CLEAR (Clear); Urine Color Yellow (Yellow); Urine Specific Gravity 1.008 (1.001-1.035); Urine Urobilinogen < 2.0 EU/DL (<2.0)
[2021-07-03] MEDS: ALBUTEROL/IPRATROPIUM 3 ML NEB RESP TX SCH ×2 (14:40→20:20)
[2021-07-03] MEDS: INSULIN LISPRO 100 UNIT/ML SUBCUT SCH ×2 (17:20→21:37)
[2021-07-03] MEDS ORDERED: methylPREDNISolone SOD SUC 40 MG/1 ML VIAL IV SCH (19:00)
[2021-07-03 21:05] LABS: Hematocrit 23.3 VOL% (42.0-52.0); Hemoglobin 7.3 GM/DL (14.0-18.0)
[2021-07-03] MEDS: FERROUS SULFATE 325 MG TABLET PO SCH (21:35)
[2021-07-03] MEDS: ROSUVASTATIN 10 MG TABLET PO SCH (21:35)
[2021-07-03] MEDS: METOPROLOL TARTRATE 100 MG TABLET PO SCH (21:36)
[2021-07-03] MEDS: ASCORBIC ACID 500 MG TABLET PO SCH (21:36)
[2021-07-03] MEDS: GABAPENTIN 300 MG CAPSULE PO SCH (21:36)
[2021-07-03] MEDS: TAMSULOSIN 0.4 MG CAPSULE PO SCH (21:36)
[2021-07-03] MEDS: PIPERACILLIN/TAZOBACTAM 3,375 MG in SODIUM CHLORIDE 0.9% 100 ML IV SCH (21:37)
[2021-07-04] MEDS: ALBUTEROL/IPRATROPIUM 3 ML NEB RESP TX SCH ×4 (00:52→19:09)
[2021-07-04 01:15] LABS: Hematocrit 21.4 VOL% (42.0-52.0)
[2021-07-04] MEDS ORDERED: INSULIN REGULAR 100 UNIT/ML SUBCUT ONE (02:38)
[2021-07-04] MEDS ORDERED: SODIUM CHLORIDE 0.9% 1,000 ML IV PRN (05:23)
[2021-07-04 06:39] LABS: Basophils % 0.1 % (0.0-0.8); Hematocrit 22.8 VOL% (42.0-52.0); Hemoglobin 7.2 GM/DL (14.0-18.0); Immature Granulocytes % 1.5 %; Immature Granulocytes Absolute 0.27 #; Lymphocytes # 0.6 10*3/uL (1.4-4.0); Lymphocytes % 3.2 % (21.2-54.2); Mean Corpuscular HGB Conc 31.6 GM/DL (32-36); Mean Corpuscular Volume 95.8 FL (87-102); Mean Platelet Volume 10.9 FL (9.6-12.0); Monocytes % 1.6 % (1.7-12.7); NRBC # 0.07 10*3/uL; Neutrophils % 93.6 % (38.7-73.9); Platelet Count 148 T/CUMM (130-400); Red Blood Count 2.38 MC/CUMM (3.8-5.5); Red Cell Distribution Width 17.3 % (9.3-17.3); White Blood Count 17.7 T/CUMM (4-12)
[2021-07-04] MEDS: PIPERACILLIN/TAZOBACTAM 3,375 MG in SODIUM CHLORIDE 0.9% 100 ML IV SCH ×3 (06:41→22:40)
[2021-07-04 06:58] LABS: Calcium 9.2 MG/DL (8.5-10.1); Osmolality,Calculated 291.8 MOS/KG (273-304); Potassium 5.1 MMOL/L (3.5-5.1)
[2021-07-04 07:22] LABS: Lymphocytes 1 % (20-55); Platelet Estimate Adequate; Segmented Neutrophils 98 % (50-85); Target Cells 1+; Total Cells Counted 100
[2021-07-04 07:23] LABS: Polychromasia 1+
[2021-07-04] MEDS ORDERED: INSULIN REGULAR 100 UNIT/ML SUBCUT SCH (07:30)
[2021-07-04] MEDS: MONTELUKAST 10 MG TABLET PO SCH (08:39)
[2021-07-04] MEDS: CHOLECALCIFEROL 1,000 UNIT TABLET PO SCH (08:39)
[2021-07-04] MEDS: FERROUS SULFATE 325 MG TABLET PO SCH ×2 (08:39→21:43)
[2021-07-04] MEDS: ZINC GLUCONATE 50 MG TABLET PO SCH (08:39)
[2021-07-04] MEDS: ASCORBIC ACID 500 MG TABLET PO SCH ×2 (08:39→21:43)
[2021-07-04] MEDS: CITALOPRAM 20 MG TABLET PO SCH (08:39)
[2021-07-04] MEDS: ISOSORBIDE MONONITRATE 60 MG TABLET PO SCH (08:39)
[2021-07-04] MEDS: amLODIPine 5 MG TABLET PO SCH (08:39)
[2021-07-04] MEDS: METOPROLOL TARTRATE 100 MG TABLET PO SCH ×2 (08:39→21:44)
[2021-07-04] MEDS: PANTOPRAZOLE 40 MG VIAL IV SCH ×2 (08:40→21:49)
[2021-07-04] MEDS: methylPREDNISolone SOD SUC 40 MG/1 ML VIAL IV SCH ×2 (08:40→21:46)
[2021-07-04] MEDS ORDERED: INSULIN GLARGINE 100 UNIT/ML SUBCUT SCH ×2 (09:00→21:00)
[2021-07-04] MEDS: INSULIN LISPRO 100 UNIT/ML SUBCUT SCH ×4 (10:05→22:01)
[2021-07-04] MEDS: GLIMEPIRIDE 2 MG TABLET PO SCH (16:50)
[2021-07-04] MEDS: INSULIN GLARGINE 100 UNIT/ML SUBCUT SCH (16:51)
[2021-07-04] MEDS ORDERED: FUROSEMIDE 40 MG/4 ML VIAL IV ONE (17:00)
[2021-07-04] MEDS: ursodioL 300 MG CAPSULE PO SCH (21:43)
[2021-07-04] MEDS: TAMSULOSIN 0.4 MG CAPSULE PO SCH (21:43)
[2021-07-04] MEDS: ROSUVASTATIN 10 MG TABLET PO SCH (21:44)
[2021-07-04] MEDS: GABAPENTIN 300 MG CAPSULE PO SCH (21:44)
[2021-07-05] MEDS: ALBUTEROL/IPRATROPIUM 3 ML NEB RESP TX SCH ×4 (00:28→19:34)
[2021-07-05] MEDS: SODIUM CHLORIDE 0.9% 1,000 ML IV SCH ×2 (01:10→16:38)
[2021-07-05 02:49] LABS: Hematocrit 26.6 VOL% (42.0-52.0); Hemoglobin 8.6 GM/DL (14.0-18.0); Immature Granulocytes % 1.3 %; Immature Granulocytes Absolute 0.28 #; Lymphocytes # 0.4 10*3/uL (1.4-4.0); Mean Corpuscular HGB Conc 32.3 GM/DL (32-36); Monocytes % 1.5 % (1.7-12.7); NRBC # 0.02 10*3/uL; Neutrophils % 95.2 % (38.7-73.9); Platelet Count 127 T/CUMM (130-400); Red Blood Count 2.83 MC/CUMM (3.8-5.5); Red Cell Distribution Width 15.7 % (9.3-17.3); White Blood Count 21.8 T/CUMM (4-12)
[2021-07-05 03:16] LABS: Albumin 1.8 G/DL (3.4-5.0); Bilirubin,Total 0.6 MG/DL (0.20-1.00); Calcium 8.7 MG/DL (8.5-10.1); Osmolality,Calculated 295.2 MOS/KG (273-304); Risk Ratio 2.37; Thyroid Stimulating Hormone 0.844 uIU/ml (0.358-3.74); Total Protein 5.1 G/DL (6.4-8.2); VLDL Cholesterol 18.6 MG/DL
[2021-07-05 03:52] LABS: Band Neutrophils 2 % (0-10); Hypochromia Slight; Lymphocytes 1 % (20-55); Nucleated Red Blood Cells 1 (0-5); Platelet Estimate Normal; Segmented Neutrophils 96 % (50-85); Total Cells Counted 100
[2021-07-05] MEDS: PIPERACILLIN/TAZOBACTAM 3,375 MG in SODIUM CHLORIDE 0.9% 100 ML IV SCH ×3 (05:12→21:19)
[2021-07-05] MEDS: ursodioL 300 MG CAPSULE PO SCH ×2 (08:42→21:14)
[2021-07-05] MEDS: ZINC GLUCONATE 50 MG TABLET PO SCH (08:43)
[2021-07-05] MEDS: ISOSORBIDE MONONITRATE 60 MG TABLET PO SCH (08:43)
[2021-07-05] MEDS: GLIMEPIRIDE 2 MG TABLET PO SCH ×2 (08:43→16:37)
[2021-07-05] MEDS: ASCORBIC ACID 500 MG TABLET PO SCH ×2 (08:43→21:13)
[2021-07-05] MEDS: MONTELUKAST 10 MG TABLET PO SCH (08:43)
[2021-07-05] MEDS: amLODIPine 5 MG TABLET PO SCH (08:43)
[2021-07-05] MEDS: CHOLECALCIFEROL 1,000 UNIT TABLET PO SCH (08:43)
[2021-07-05] MEDS: FERROUS SULFATE 325 MG TABLET PO SCH ×2 (08:43→21:14)
[2021-07-05] MEDS: CITALOPRAM 20 MG TABLET PO SCH (08:43)
[2021-07-05] MEDS: METOPROLOL TARTRATE 100 MG TABLET PO SCH ×2 (08:43→21:13)
[2021-07-05] MEDS: PANTOPRAZOLE 40 MG VIAL IV SCH ×2 (08:44→21:18)
[2021-07-05] MEDS: methylPREDNISolone SOD SUC 40 MG/1 ML VIAL IV SCH (08:44)
[2021-07-05] MEDS: INSULIN GLARGINE 100 UNIT/ML SUBCUT SCH (08:45)
[2021-07-05] MEDS: INSULIN LISPRO 100 UNIT/ML SUBCUT SCH ×4 (08:45→21:16)
[2021-07-05] MEDS ORDERED: NON-FORMULARY MEDICATION (Insulin Glargine U-300 Conc [Toujeo Max U-300 Solostar] 300 unit SUBCUT SCH (09:00)
[2021-07-05] MEDS ORDERED: INSULIN LISPRO 100 UNIT/ML SUBCUT ONE (15:01)
[2021-07-05] MEDS: ROSUVASTATIN 10 MG TABLET PO SCH (21:13)
[2021-07-05] MEDS: GABAPENTIN 300 MG CAPSULE PO SCH (21:13)
[2021-07-05] MEDS: TAMSULOSIN 0.4 MG CAPSULE PO SCH (21:14)
[2021-07-06] MEDS: ALBUTEROL/IPRATROPIUM 3 ML NEB RESP TX SCH ×3 (01:15→13:30)
[2021-07-06] MEDS: PIPERACILLIN/TAZOBACTAM 3,375 MG in SODIUM CHLORIDE 0.9% 100 ML IV SCH (04:50)
[2021-07-06 06:16] LABS: Basophils % 0.1 % (0.0-0.8); Hematocrit 26.9 VOL% (42.0-52.0); Hemoglobin 8.8 GM/DL (14.0-18.0); Immature Granulocytes % 1.9 %; Immature Granulocytes Absolute 0.32 #; Lymphocytes # 0.9 10*3/uL (1.4-4.0); Lymphocytes % 5.2 % (21.2-54.2); Mean Corpuscular HGB Conc 32.7 GM/DL (32-36); Mean Corpuscular Volume 94.4 FL (87-102); Mean Platelet Volume 10.9 FL (9.6-12.0); Monocytes % 5.9 % (1.7-12.7); NRBC # 0.02 10*3/uL; Neutrophils % 86.9 % (38.7-73.9); Platelet Count 133 T/CUMM (130-400); Red Blood Count 2.85 MC/CUMM (3.8-5.5); White Blood Count 16.6 T/CUMM (4-12)
[2021-07-06 06:33] LABS: Calcium 8.2 MG/DL (8.5-10.1); Osmolality,Calculated 285.4 MOS/KG (273-304); Potassium 4.2 MMOL/L (3.5-5.1)
[2021-07-06] MEDS ORDERED: predniSONE 20 MG TABLET PO SCH (09:00)
[2021-07-06] MEDS: INSULIN LISPRO 100 UNIT/ML SUBCUT SCH ×2 (10:22→12:35)
[2021-07-06] MEDS: INSULIN GLARGINE 100 UNIT/ML SUBCUT SCH (10:23)
[2021-07-06] MEDS: FERROUS SULFATE 325 MG TABLET PO SCH (10:34)
[2021-07-06] MEDS: METOPROLOL TARTRATE 100 MG TABLET PO SCH (10:34)
[2021-07-06] MEDS: GLIMEPIRIDE 2 MG TABLET PO SCH (10:34)
[2021-07-06] MEDS: CITALOPRAM 20 MG TABLET PO SCH (10:34)
[2021-07-06] MEDS: ursodioL 300 MG CAPSULE PO SCH (10:34)
[2021-07-06] MEDS: ISOSORBIDE MONONITRATE 60 MG TABLET PO SCH (10:34)
[2021-07-06] MEDS: ASCORBIC ACID 500 MG TABLET PO SCH (10:35)
[2021-07-06] MEDS: MONTELUKAST 10 MG TABLET PO SCH (10:35)
[2021-07-06] MEDS: ZINC GLUCONATE 50 MG TABLET PO SCH (10:35)
[2021-07-06] MEDS: CHOLECALCIFEROL 1,000 UNIT TABLET PO SCH (10:35)
[2021-07-06] MEDS: amLODIPine 5 MG TABLET PO SCH (10:35)
[2021-07-06] MEDS: PANTOPRAZOLE 40 MG VIAL IV SCH (10:36)
[2021-07-06 12:18] VITALS: BP 139/69
== END 2021-07-06 15:17 | disposition home health service (06) | DRG 811 ==
LOC: N.ED 09:27 → SUATTDRO 12:20 → N.EDINP 12:20 → N.5E 15:15
PROVIDERS: ADMIT Internal Medicine; ATTEND Internal Medicine

== ENCOUNTER 2021-07-10 10:41 | Inpatient (IN) ==
[2021-07-10] MEDS ORDERED: PANTOPRAZOLE 40 MG VIAL IV STA (11:59)
[2021-07-10 12:11] LABS: Eosinophils % 0.2 % (0.00-10.9); Hematocrit 22.3 VOL% (42.0-52.0); Immature Granulocytes % 2.1 %; Immature Granulocytes Absolute 0.19 #; Lymphocytes # 0.2 10*3/uL (1.4-4.0); Lymphocytes % 2.3 % (21.2-54.2); Mean Corpuscular HGB Conc 31.4 GM/DL (32-36); Mean Corpuscular Volume 96.1 FL (87-102); Monocytes % 2.4 % (1.7-12.7); NRBC # 0.04 10*3/uL; Platelet Count 159 T/CUMM (130-400); Red Blood Count 2.32 MC/CUMM (3.8-5.5); Red Cell Distribution Width 16.4 % (9.3-17.3); White Blood Count 8.9 T/CUMM (4-12)
[2021-07-10 12:26] LABS: Albumin 2.1 G/DL (3.4-5.0); Bilirubin,Total 0.4 MG/DL (0.20-1.00); Calcium 9.3 MG/DL (8.5-10.1); Osmolality,Calculated 300.2 MOS/KG (273-304); Potassium 4.3 MMOL/L (3.5-5.1); Total Protein 5.2 G/DL (6.4-8.2)
[2021-07-10 12:46] LABS: INR 1.1; PT Patient Result 11.8 SECS (10.5-12.0)
[2021-07-10 13:02] LABS: Lymphocytes 4 % (20-55); Segmented Neutrophils 95 % (50-85); Total Cells Counted 100
[2021-07-10 13:06] LABS: Anisocytosis 1+; Atypical Lymphocytes Few; Macrocytosis 1+; Microcytosis 1+
[2021-07-10 13:09] LABS: Platelet Estimate Adequate; Polychromasia 1+
[2021-07-10] MEDS ORDERED: DEXTROSE 50% 25 GM/50 ML VIAL IV PRN (14:13)
[2021-07-10] MEDS ORDERED: GLUCAGON 1 MG VIAL IM PRN ×2 (14:13→14:14)
[2021-07-10] MEDS ORDERED: DEXTROSE 10% 250 ML BAG IV PRN (14:14)
[2021-07-10] MEDS ORDERED: ONDANSETRON 4 MG/2 ML VIAL IV PRN (14:14)
[2021-07-10] MEDS ORDERED: SODIUM CHLORIDE 0.9% 1,000 ML IV PRN ×2 (14:17→18:40)
[2021-07-10] MEDS ORDERED: cefTRIAXone 1,000 MG in SODIUM CHLORIDE 0.9% 100 ML IV SCH (14:30)
[2021-07-10 15:02] LABS: Hemoglobin 6.6 GM/DL (14.0-18.0)
[2021-07-10] MEDS: PANTOPRAZOLE 40 MG TABLET PO SCH ×2 (15:18→20:54)
[2021-07-10] MEDS: SODIUM CHLORIDE 0.9% 1,000 ML IV SCH (15:19)
[2021-07-10] MEDS: INSULIN LISPRO 100 UNIT/ML SUBCUT SCH ×2 (17:24→20:54)
[2021-07-10] MEDS: ALBUTEROL/IPRATROPIUM 3 ML NEB RESP TX SCH (19:22)
[2021-07-10 22:25] LABS: Hematocrit 18.5 VOL% (42.0-52.0)
[2021-07-10 22:27] LABS: Hemoglobin 5.9 GM/DL (14.0-18.0)
[2021-07-11] MEDS: ALBUTEROL/IPRATROPIUM 3 ML NEB RESP TX SCH ×4 (00:42→20:22)
[2021-07-11 05:51] LABS: Eosinophils % 0.5 % (0.00-10.9); Hemoglobin 7.4 GM/DL (14.0-18.0); Immature Granulocytes % 3.7 %; Lymphocytes # 0.8 10*3/uL (1.4-4.0); Lymphocytes % 9.9 % (21.2-54.2); Mean Corpuscular HGB Conc 32.2 GM/DL (32-36); Mean Corpuscular Volume 94.3 FL (87-102); Mean Platelet Volume 11.2 FL (9.6-12.0); Monocytes % 5.9 % (1.7-12.7); NRBC # 0.03 10*3/uL; Platelet Count 152 T/CUMM (130-400); Red Blood Count 2.44 MC/CUMM (3.8-5.5); Red Cell Distribution Width 16.7 % (9.3-17.3); White Blood Count 8.2 T/CUMM (4-12)
[2021-07-11 05:53] LABS: Calcium 8.3 MG/DL (8.5-10.1); Osmolality,Calculated 289.7 MOS/KG (273-304); Potassium 3.6 MMOL/L (3.5-5.1)
[2021-07-11] MEDS: PANTOPRAZOLE 40 MG TABLET PO SCH ×2 (08:39→20:14)
[2021-07-11] MEDS ORDERED: cefTRIAXone 1,000 MG in SODIUM CHLORIDE 0.9% 100 ML IV SCH (09:00)
[2021-07-11] MEDS: INSULIN LISPRO 100 UNIT/ML SUBCUT SCH ×4 (09:08→23:21)
[2021-07-11] MEDS: SODIUM CHLORIDE 0.9% 1,000 ML IV SCH (09:57)
[2021-07-11] MEDS: PIPERACILLIN/TAZOBACTAM 3,375 MG in SODIUM CHLORIDE 0.9% 100 ML IV SCH ×2 (10:04→17:42)
[2021-07-11 12:28] LABS: Hematocrit 25.7 VOL% (42.0-52.0); Hemoglobin 8.2 GM/DL (14.0-18.0)
[2021-07-11 19:58] LABS: Hemoglobin 7.7 GM/DL (14.0-18.0)
[2021-07-12] MEDS: ALBUTEROL/IPRATROPIUM 3 ML NEB RESP TX SCH ×4 (00:20→19:06)
[2021-07-12] MEDS: PIPERACILLIN/TAZOBACTAM 3,375 MG in SODIUM CHLORIDE 0.9% 100 ML IV SCH ×3 (01:08→18:58)
[2021-07-12 04:08] LABS: Eosinophils # 0.1 10*3/uL (0.0-0.87); Eosinophils % 0.6 % (0.00-10.9); Hematocrit 23.6 VOL% (42.0-52.0); Hemoglobin 7.3 GM/DL (14.0-18.0); Immature Granulocytes % 1.6 %; Immature Granulocytes Absolute 0.14 #; Lymphocytes # 0.6 10*3/uL (1.4-4.0); Lymphocytes % 7.1 % (21.2-54.2); Mean Corpuscular HGB Conc 30.9 GM/DL (32-36); Mean Corpuscular Volume 95.9 FL (87-102); Mean Platelet Volume 10.5 FL (9.6-12.0); Neutrophils % 84.7 % (38.7-73.9); Platelet Count 155 T/CUMM (130-400); Red Blood Count 2.46 MC/CUMM (3.8-5.5); Red Cell Distribution Width 17.1 % (9.3-17.3); White Blood Count 8.5 T/CUMM (4-12)
[2021-07-12 04:28] LABS: Calcium 8.4 MG/DL (8.5-10.1); Potassium 3.6 MMOL/L (3.5-5.1)
[2021-07-12] MEDS: INSULIN LISPRO 100 UNIT/ML SUBCUT SCH ×4 (07:30→22:00)
[2021-07-12] MEDS: PANTOPRAZOLE 40 MG TABLET PO SCH ×2 (10:11→20:13)
[2021-07-12 12:53] LABS: Hematocrit 25.7 VOL% (42.0-52.0); Hemoglobin 8.1 GM/DL (14.0-18.0)
[2021-07-12] MEDS: MONTELUKAST 10 MG TABLET PO SCH (13:50)
[2021-07-12] MEDS: ISOSORBIDE MONONITRATE 60 MG TABLET PO SCH (13:50)
[2021-07-12] MEDS: CITALOPRAM 20 MG TABLET PO SCH (13:51)
[2021-07-12 20:05] LABS: Hematocrit 23.7 VOL% (42.0-52.0); Hemoglobin 7.5 GM/DL (14.0-18.0)
[2021-07-12] MEDS: ROSUVASTATIN 10 MG TABLET PO SCH (20:13)
[2021-07-12] MEDS: TAMSULOSIN 0.4 MG CAPSULE PO SCH (20:13)
[2021-07-12] MEDS: ursodioL 300 MG CAPSULE PO SCH (20:14)
[2021-07-12] MEDS: METOPROLOL TARTRATE 100 MG TABLET PO SCH (20:14)
[2021-07-12] MEDS: ASCORBIC ACID 500 MG TABLET PO SCH (20:14)
[2021-07-12] MEDS: GABAPENTIN 300 MG CAPSULE PO SCH (20:14)
[2021-07-13] MEDS: ALBUTEROL/IPRATROPIUM 3 ML NEB RESP TX SCH ×4 (00:24→19:19)
[2021-07-13] MEDS: PIPERACILLIN/TAZOBACTAM 3,375 MG in SODIUM CHLORIDE 0.9% 100 ML IV SCH ×3 (01:13→16:55)
[2021-07-13 05:38] LABS: Basophils % 0.1 % (0.0-0.8); Eosinophils # 0.1 10*3/uL (0.0-0.87); Eosinophils % 1.5 % (0.00-10.9); Hemoglobin 7.3 GM/DL (14.0-18.0); Immature Granulocytes % 1.5 %; Immature Granulocytes Absolute 0.14 #; Lymphocytes # 0.5 10*3/uL (1.4-4.0); Lymphocytes % 5.5 % (21.2-54.2); Mean Corpuscular HGB Conc 30.4 GM/DL (32-36); Mean Corpuscular Volume 98.4 FL (87-102); Mean Platelet Volume 11.1 FL (9.6-12.0); Monocytes % 6.8 % (1.7-12.7); Neutrophils % 84.6 % (38.7-73.9); Platelet Count 168 T/CUMM (130-400); Red Blood Count 2.44 MC/CUMM (3.8-5.5); Red Cell Distribution Width 16.5 % (9.3-17.3); White Blood Count 9.2 T/CUMM (4-12)
[2021-07-13 06:05] LABS: Calcium 8.4 MG/DL (8.5-10.1); Potassium 4.3 MMOL/L (3.5-5.1)
[2021-07-13] MEDS: INSULIN LISPRO 100 UNIT/ML SUBCUT SCH ×4 (08:22→20:16)
[2021-07-13] MEDS: ASCORBIC ACID 500 MG TABLET PO SCH ×2 (10:06→20:41)
[2021-07-13] MEDS: ursodioL 300 MG CAPSULE PO SCH ×2 (10:06→20:41)
[2021-07-13] MEDS: CITALOPRAM 20 MG TABLET PO SCH (10:06)
[2021-07-13] MEDS: MONTELUKAST 10 MG TABLET PO SCH (10:06)
[2021-07-13] MEDS: METOPROLOL TARTRATE 100 MG TABLET PO SCH ×2 (10:06→20:41)
[2021-07-13] MEDS: ISOSORBIDE MONONITRATE 60 MG TABLET PO SCH (10:06)
[2021-07-13] MEDS: CHOLECALCIFEROL 1,000 UNIT TABLET PO SCH (10:06)
[2021-07-13] MEDS: PANTOPRAZOLE 40 MG TABLET PO SCH ×2 (10:26→20:41)
[2021-07-13] MEDS: TAMSULOSIN 0.4 MG CAPSULE PO SCH (20:41)
[2021-07-13] MEDS: GABAPENTIN 300 MG CAPSULE PO SCH (20:41)
[2021-07-13] MEDS: ROSUVASTATIN 10 MG TABLET PO SCH (20:41)
[2021-07-14] MEDS: ALBUTEROL/IPRATROPIUM 3 ML NEB RESP TX SCH ×4 (01:05→19:25)
[2021-07-14] MEDS: PIPERACILLIN/TAZOBACTAM 3,375 MG in SODIUM CHLORIDE 0.9% 100 ML IV SCH ×3 (01:27→18:17)
[2021-07-14 06:23] LABS: Folate 16.34 NG/ML (5.38-24.0); Vitamin B12 1087 PG/ML (211-911)
[2021-07-14 07:00] LABS: % Iron Saturation 9.2 % (18-50); Calcium 8.4 MG/DL (8.5-10.1); Ferritin 109.7 ng/mL (26-388); Osmolality,Calculated 280.5 MOS/KG (273-304); Potassium 4.2 MMOL/L (3.5-5.1)
[2021-07-14] MEDS: INSULIN LISPRO 100 UNIT/ML SUBCUT SCH ×4 (08:55→20:57)
[2021-07-14] MEDS: CITALOPRAM 20 MG TABLET PO SCH (09:42)
[2021-07-14] MEDS: ursodioL 300 MG CAPSULE PO SCH ×2 (09:42→20:59)
[2021-07-14] MEDS: METOPROLOL TARTRATE 100 MG TABLET PO SCH ×2 (09:44→20:59)
[2021-07-14] MEDS: ISOSORBIDE MONONITRATE 60 MG TABLET PO SCH (09:44)
[2021-07-14 09:45] LABS: Basophils % 0.2 % (0.2-1.0); Eosinophils # 0.2 # (0.0-0.70); Eosinophils % 1.6 % (0.0-10.0); Hematocrit 24.2 VOL% (42.0-52.0); Hemoglobin 7.4 GM/DL (14.0-18.0); Lymphocytes # 0.6 # (1.3-2.9); Lymphocytes % 6.9 % (20.5-45.5); Mean Corpuscular HGB Conc 30.6 GM/DL (32-36); Mean Corpuscular Volume 97.6 FL (80-94); Mean Platelet Volume 10.9 FL (7.4-10.4); Monocytes % 7.9 % (5.5-11.7); Neutrophils % 82.3 % (43.0-65.0); Platelet Count 174 T/CUMM (130-400); Red Blood Count 2.48 MC/CUMM (4.70-6.10); White Blood Count 9.2 T/CUMM (4.8-10.8)
[2021-07-14] MEDS: MONTELUKAST 10 MG TABLET PO SCH (09:45)
[2021-07-14] MEDS: CHOLECALCIFEROL 1,000 UNIT TABLET PO SCH (09:45)
[2021-07-14] MEDS: PANTOPRAZOLE 40 MG TABLET PO SCH ×2 (09:45→20:59)
[2021-07-14] MEDS: ASCORBIC ACID 500 MG TABLET PO SCH ×2 (09:45→20:59)
[2021-07-14] MEDS: LACTATED RINGERS 1,000 ML IV SCH (11:00)
[2021-07-14] MEDS ORDERED: BENZOCAINE 20% SPRAY 57 GM CAN TOP ONE (11:44)
[2021-07-14] MEDS ORDERED: MIDAZOLAM 2 MG/2 ML VIAL ONE (12:02)
[2021-07-14 14:28] LABS: Sedimentation Rate-Westergren 80 MM/HR (0-20)
[2021-07-14] MEDS ORDERED: MAGNESIUM CITRATE 300 ML BOTTLE PO ONE (16:00)
[2021-07-14] MEDS ORDERED: FLUCONAZOLE 200 MG TABLET PO ONE (16:36)
[2021-07-14] MEDS: ROSUVASTATIN 10 MG TABLET PO SCH (20:58)
[2021-07-14] MEDS: TAMSULOSIN 0.4 MG CAPSULE PO SCH (20:59)
[2021-07-14] MEDS: GABAPENTIN 300 MG CAPSULE PO SCH (20:59)
[2021-07-15] MEDS: ALBUTEROL/IPRATROPIUM 3 ML NEB RESP TX SCH ×4 (01:15→20:16)
[2021-07-15] MEDS: PIPERACILLIN/TAZOBACTAM 3,375 MG in SODIUM CHLORIDE 0.9% 100 ML IV SCH ×3 (01:19→18:44)
[2021-07-15 06:31] LABS: Basophils % 0.2 % (0.0-0.8); Eosinophils # 0.1 10*3/uL (0.0-0.87); Eosinophils % 0.8 % (0.00-10.9); Hematocrit 26.8 VOL% (42.0-52.0); Immature Granulocytes % 1.5 %; Immature Granulocytes Absolute 0.16 #; Lymphocytes # 0.5 10*3/uL (1.4-4.0); Lymphocytes % 4.6 % (21.2-54.2); Mean Corpuscular HGB Conc 29.9 GM/DL (32-36); Mean Corpuscular Volume 98.2 FL (87-102); Mean Platelet Volume 10.8 FL (9.6-12.0); Monocytes % 7.2 % (1.7-12.7); Neutrophils % 85.7 % (38.7-73.9); Platelet Count 186 T/CUMM (130-400); Red Blood Count 2.73 MC/CUMM (3.8-5.5); Red Cell Distribution Width 15.5 % (9.3-17.3); White Blood Count 10.5 T/CUMM (4-12)
[2021-07-15 06:46] LABS: Calcium 8.7 MG/DL (8.5-10.1); Osmolality,Calculated 280.2 MOS/KG (273-304); Potassium 4.5 MMOL/L (3.5-5.1)
[2021-07-15 06:55] LABS: Eosinophils 1 % (0-10); Hypochromia 1+; Lymphocytes 5 % (20-55); Microcytosis 1+; Ovalocytes Slight; Segmented Neutrophils 85 % (50-85); Total Cells Counted 100
[2021-07-15 06:56] LABS: Platelet Estimate Adequate; Polychromasia Slight
[2021-07-15] MEDS: INSULIN LISPRO 100 UNIT/ML SUBCUT SCH ×4 (08:30→22:41)
[2021-07-15] MEDS: PANTOPRAZOLE 40 MG TABLET PO SCH ×2 (09:05→22:10)
[2021-07-15] MEDS: CHOLECALCIFEROL 1,000 UNIT TABLET PO SCH (09:05)
[2021-07-15] MEDS: FLUCONAZOLE 100 MG TABLET PO SCH (09:05)
[2021-07-15] MEDS: ASCORBIC ACID 500 MG TABLET PO SCH ×2 (09:05→22:10)
[2021-07-15] MEDS: METOPROLOL TARTRATE 100 MG TABLET PO SCH ×2 (09:05→22:15)
[2021-07-15] MEDS: ursodioL 300 MG CAPSULE PO SCH ×2 (09:06→22:10)
[2021-07-15] MEDS: MONTELUKAST 10 MG TABLET PO SCH (09:06)
[2021-07-15] MEDS: ISOSORBIDE MONONITRATE 60 MG TABLET PO SCH (09:06)
[2021-07-15 09:47] LABS: Hemoglobin A1 (Alkaline) 98.2 % (96.5-98.5); Hemoglobin A2 (Alkaline) 1.8 % (1.5-3.5)
[2021-07-15] MEDS: LACTATED RINGERS 1,000 ML IV SCH (11:07)
[2021-07-15] MEDS ORDERED: BISACODYL 5 MG TABLET PO ONE (12:00)
[2021-07-15] MEDS ORDERED: POLYETHYLENE GLYCOL POWDER 255 GM BOTTLE PO ONE (18:00)
[2021-07-15] MEDS: GABAPENTIN 300 MG CAPSULE PO SCH (22:10)
[2021-07-15] MEDS: ROSUVASTATIN 10 MG TABLET PO SCH (22:10)
[2021-07-15] MEDS: TAMSULOSIN 0.4 MG CAPSULE PO SCH (22:10)
[2021-07-16] MEDS: PIPERACILLIN/TAZOBACTAM 3,375 MG in SODIUM CHLORIDE 0.9% 100 ML IV SCH ×3 (00:20→18:14)
[2021-07-16] MEDS: ALBUTEROL/IPRATROPIUM 3 ML NEB RESP TX SCH ×4 (01:19→19:47)
[2021-07-16 05:53] LABS: Basophils % 0.2 % (0.0-0.8); Eosinophils % 0.3 % (0.00-10.9); Hemoglobin 7.4 GM/DL (14.0-18.0); Immature Granulocytes % 0.9 %; Immature Granulocytes Absolute 0.11 #; Lymphocytes # 0.5 10*3/uL (1.4-4.0); Lymphocytes % 4.2 % (21.2-54.2); Mean Corpuscular HGB Conc 30.8 GM/DL (32-36); Mean Corpuscular Volume 95.2 FL (87-102); Mean Platelet Volume 10.9 FL (9.6-12.0); Monocytes % 5.5 % (1.7-12.7); Neutrophils % 88.9 % (38.7-73.9); Platelet Count 178 T/CUMM (130-400); Red Blood Count 2.52 MC/CUMM (3.8-5.5); Red Cell Distribution Width 15.1 % (9.3-17.3); White Blood Count 12.3 T/CUMM (4-12)
[2021-07-16 06:05] LABS: Calcium 7.8 MG/DL (8.5-10.1); Osmolality,Calculated 272.7 MOS/KG (273-304); Potassium 4.2 MMOL/L (3.5-5.1)
[2021-07-16 06:17] LABS: Hypochromia 1+; Lymphocytes 2 % (20-55); Microcytosis 1+; Platelet Estimate Adequate; Segmented Neutrophils 94 % (50-85); Total Cells Counted 100
[2021-07-16] MEDS: INSULIN LISPRO 100 UNIT/ML SUBCUT SCH ×4 (07:59→20:53)
[2021-07-16 09:53] LABS: PT Patient Result 11.3 SECS (10.5-12.0)
[2021-07-16] MEDS: LACTATED RINGERS 1,000 ML IV SCH ×2 (10:50→10:51)
[2021-07-16] MEDS: ISOSORBIDE MONONITRATE 60 MG TABLET PO SCH (11:24)
[2021-07-16] MEDS: ursodioL 300 MG CAPSULE PO SCH ×2 (11:24→20:52)
[2021-07-16] MEDS: FLUCONAZOLE 100 MG TABLET PO SCH (11:24)
[2021-07-16] MEDS: MONTELUKAST 10 MG TABLET PO SCH (11:24)
[2021-07-16] MEDS: PANTOPRAZOLE 40 MG TABLET PO SCH ×2 (11:24→20:53)
[2021-07-16] MEDS: METOPROLOL TARTRATE 100 MG TABLET PO SCH ×2 (11:24→20:52)
[2021-07-16] MEDS: CHOLECALCIFEROL 1,000 UNIT TABLET PO SCH (11:24)
[2021-07-16] MEDS: ASCORBIC ACID 500 MG TABLET PO SCH ×2 (11:24→20:52)
[2021-07-16] MEDS ORDERED: fentaNYL 100 MCG/2 ML VIAL ONE (11:46)
[2021-07-16] MEDS ORDERED: MIDAZOLAM 2 MG/2 ML VIAL ONE ×2 (11:46→12:00)
[2021-07-16] MEDS: GABAPENTIN 300 MG CAPSULE PO SCH (20:52)
[2021-07-16] MEDS: TAMSULOSIN 0.4 MG CAPSULE PO SCH (20:52)
[2021-07-16] MEDS: ROSUVASTATIN 10 MG TABLET PO SCH (20:53)
[2021-07-16] MEDS ORDERED: MELATONIN 3 MG TABLET PO PRN (21:51)
[2021-07-17] MEDS: ALBUTEROL/IPRATROPIUM 3 ML NEB RESP TX SCH ×4 (00:19→19:54)
[2021-07-17] MEDS: PIPERACILLIN/TAZOBACTAM 3,375 MG in SODIUM CHLORIDE 0.9% 100 ML IV SCH ×3 (01:22→18:01)
[2021-07-17 06:33] LABS: Calcium 7.8 MG/DL (8.5-10.1); Osmolality,Calculated 270.2 MOS/KG (273-304); Potassium 4.3 MMOL/L (3.5-5.1)
[2021-07-17 06:37] LABS: Basophils % 0.2 % (0.0-0.8); Eosinophils # 0.1 10*3/uL (0.0-0.87); Eosinophils % 0.8 % (0.00-10.9); Hematocrit 26.5 VOL% (42.0-52.0); Hemoglobin 7.9 GM/DL (14.0-18.0); Immature Granulocytes % 1.1 %; Immature Granulocytes Absolute 0.09 #; Lymphocytes # 0.6 10*3/uL (1.4-4.0); Lymphocytes % 6.9 % (21.2-54.2); Mean Corpuscular HGB Conc 29.8 GM/DL (32-36); Mean Corpuscular Volume 99.3 FL (87-102); Mean Platelet Volume 10.6 FL (9.6-12.0); Monocytes % 7.5 % (1.7-12.7); Neutrophils % 83.5 % (38.7-73.9); Platelet Count 188 T/CUMM (130-400); Red Blood Count 2.67 MC/CUMM (3.8-5.5); Red Cell Distribution Width 15.3 % (9.3-17.3); White Blood Count 8.4 T/CUMM (4-12)
[2021-07-17] MEDS: INSULIN LISPRO 100 UNIT/ML SUBCUT SCH ×5 (07:34→21:40)
[2021-07-17] MEDS: LACTATED RINGERS 1,000 ML IV SCH ×2 (09:55→11:25)
[2021-07-17] MEDS: FLUCONAZOLE 100 MG TABLET PO SCH (11:25)
[2021-07-17] MEDS: ISOSORBIDE MONONITRATE 60 MG TABLET PO SCH (11:25)
[2021-07-17] MEDS: PANTOPRAZOLE 40 MG TABLET PO SCH ×2 (11:25→20:15)
[2021-07-17] MEDS: ursodioL 300 MG CAPSULE PO SCH ×2 (11:25→20:15)
[2021-07-17] MEDS: METOPROLOL TARTRATE 100 MG TABLET PO SCH ×2 (11:25→20:15)
[2021-07-17] MEDS: ASCORBIC ACID 500 MG TABLET PO SCH ×2 (11:26→20:15)
[2021-07-17] MEDS: CHOLECALCIFEROL 1,000 UNIT TABLET PO SCH (11:26)
[2021-07-17] MEDS: MONTELUKAST 10 MG TABLET PO SCH (11:26)
[2021-07-17 19:15] LABS: Bacteria,Urine Occasional /HPF (Few); Mucus,Urine Occasional /LPF (Occasional); RBC,Urine 2 /HPF (0-4); Squamous Epithelial Cell,Urine Occasional /HPF (0-10)
[2021-07-17 19:28] LABS: Urine Appearance Clear (Clear); Urine Color Yellow (Yellow); Urine Specific Gravity 1.025 (1.001-1.035); Urine pH 5.5 (4.5-8.0)
[2021-07-17 19:29] LABS: Bilirubin,Urine Negative (Negative); Blood, Urine Negative (Negative); Glucose,Urine (UA) 500 mg/dL (Negative); Ketones,Urine Negative (Negative); Nitrite,Urine Negative (Negative); Protein,Urine >=300 MG/DL; Urine Urobilinogen 0.2 EU/DL (<2.0)
[2021-07-17] MEDS: TAMSULOSIN 0.4 MG CAPSULE PO SCH (20:15)
[2021-07-17] MEDS: GABAPENTIN 300 MG CAPSULE PO SCH (20:15)
[2021-07-17] MEDS: ROSUVASTATIN 10 MG TABLET PO SCH (20:15)
[2021-07-18] MEDS: PIPERACILLIN/TAZOBACTAM 3,375 MG in SODIUM CHLORIDE 0.9% 100 ML IV SCH ×2 (00:45→09:05)
[2021-07-18] MEDS: ALBUTEROL/IPRATROPIUM 3 ML NEB RESP TX SCH ×2 (00:51→07:18)
[2021-07-18 05:12] LABS: Basophils % 0.3 % (0.0-0.8); Eosinophils # 0.1 10*3/uL (0.0-0.87); Eosinophils % 0.7 % (0.00-10.9); Hematocrit 25.5 VOL% (42.0-52.0); Hemoglobin 7.9 GM/DL (14.0-18.0); Immature Granulocytes % 1.3 %; Immature Granulocytes Absolute 0.09 #; Lymphocytes # 0.5 10*3/uL (1.4-4.0); Lymphocytes % 6.6 % (21.2-54.2); Mean Corpuscular Volume 96.2 FL (87-102); Mean Platelet Volume 10.6 FL (9.6-12.0); Monocytes % 9.6 % (1.7-12.7); Neutrophils % 81.5 % (38.7-73.9); Platelet Count 164 T/CUMM (130-400); Red Blood Count 2.65 MC/CUMM (3.8-5.5); Red Cell Distribution Width 14.9 % (9.3-17.3); White Blood Count 6.8 T/CUMM (4-12)
[2021-07-18 05:22] LABS: Calcium 8.1 MG/DL (8.5-10.1); Potassium 4.4 MMOL/L (3.5-5.1)
[2021-07-18] MEDS: LACTATED RINGERS 1,000 ML IV SCH ×2 (08:34)
[2021-07-18] MEDS: INSULIN LISPRO 100 UNIT/ML SUBCUT SCH ×3 (08:34→16:59)
[2021-07-18] MEDS: ISOSORBIDE MONONITRATE 60 MG TABLET PO SCH (09:03)
[2021-07-18] MEDS: ursodioL 300 MG CAPSULE PO SCH (09:03)
[2021-07-18] MEDS: ASCORBIC ACID 500 MG TABLET PO SCH (09:03)
[2021-07-18] MEDS: PANTOPRAZOLE 40 MG TABLET PO SCH (09:03)
[2021-07-18] MEDS: FLUCONAZOLE 100 MG TABLET PO SCH (09:04)
[2021-07-18] MEDS: MONTELUKAST 10 MG TABLET PO SCH (09:04)
[2021-07-18] MEDS: CHOLECALCIFEROL 1,000 UNIT TABLET PO SCH (09:04)
[2021-07-18] MEDS: METOPROLOL TARTRATE 100 MG TABLET PO SCH (09:04)
[2021-07-18 11:29] VITALS: BP 118/78
[2021-07-18] MEDS ORDERED: FERRIC GLUCONATE COMPLEX 125 MG in SODIUM CHLORIDE 0.9% 100 ML IV ONE (14:00)
[2021-07-18] MEDS ORDERED: FERROUS SULFATE 325 MG TABLET PO SCH (17:00)
== END 2021-07-18 16:40 | disposition home or self-care (01) | DRG 377 ==
LOC: N.ED 10:41 → N.3E 10:41 → SUATTDRO 14:13 → N.3E 15:52 → SUATTDRO 07-12 12:28
PROVIDERS: ADMIT Internal Medicine; ATTEND Internal Medicine